=== PATIENT | female | born 1960 | race Caucasian/White ===

== ENCOUNTER 2016-11-26 11:00 | Inpatient (IN) ==
[2016-11-26 12:01] LABS: MANUAL DIFF NEEDED? NO
[2016-11-26 12:18] LABS: BASO% 0.3 % (0.0-0.8); EOS# 0.18 X1000 (0.0-0.7); EOS% 2.9 % (0.0-10.0); HEMATOCRIT 32.3 % (37.0-47.0); HEMOGLOBIN 10.4 g/dL (12.0-16.0); IMM GRAN# 0.05 X1000 (0.0-0.04); IMM GRAN% 0.8 % (0.0-0.5); LYMPH# 1.53 X1000 (1.2-3.4); MCH 26.3 PG (27-31); MCHC 32.2 g/dL (33-37); MCV 81.8 FL (81-99); MONO# 0.45 X1000 (0.11-0.59); MONO% 7.3 % (1.7-9.3); MPV 10.3 FL (7.4-10.4); NEUT% 63.7 % (42.2-75.2); PLT 299 X1000 (130-400); RBC 3.95 XMIL (4.2-5.4)
--- NOTE | 2016-11-26 12:19 | PROVIDER DOCUMENTATION ---
HPI-General Adult - General Chief Complaint: Vomiting Blood Stated Complaint: RECHECK/SENT BY DR NAVARRETE Time Seen by Provider: 11/26/16 12:02 Source: patient, family Allergies/Adverse Reactions: Patient Allergies Allergy/AdvReac Type Severity Reaction Status Date / Time clindamycin Allergy Severe RASH Verified 11/26/16 13:57 meloxicam [From Mobic] Allergy Mild RASH Verified 11/26/16 13:57 vancomycin Allergy RASH Verified 11/26/16 13:57 Home Medications: Home Medication List Medication Instructions Recorded Confirmed Last Taken Type ATORVAstatin [Lipitor] 80 mg PO QHS 09/08/15 11/26/16 11/25/16 21:00 History Apixaban [Eliquis] 2.5 mg PO BID 09/08/15 11/26/16 11/25/16 21:00 History Furosemide 80 mg PO BID 09/08/15 11/26/16 11/26/16 09:00 History Zolpidem [Ambien] 5 mg PO QHS 09/08/15 11/26/16 11/25/16 21:30 History Clonidine [Catapres] 0.1 mg PO TID #90 09/21/15 11/26/16 11/26/16 09:00 Rx Buspirone HCl 5 mg PO BID 10/06/15 11/26/16 11/26/16 09:00 History Hydralazine [Apresoline] 37.5 mg PO TID@0900,1500,2100 #90 11/06/15 11/26/16 09:00 Rx tablet Aspirin 81 mg PO DAILY 11/12/16 11/26/16 11/12/16 History Calcium Acetate 667 mg PO TID 11/12/16 11/26/16 11/26/16 09:00 History Gabapentin [Neurontin] 300 mg PO QHS 11/12/16 11/26/16 11/25/16 21:00 History Hydrocodone/Acetaminophen [[place] 1 each PO Q6H PRN PRN 11/12/16 11/26/16 21:00 History 10-325 Tablet] Lansoprazole [Prevacid] 30 mg PO DAILY 11/12/16 11/26/16 11/26/16 09:00 History Metoprolol [Lopressor] 50 mg PO BID 11/12/16 11/26/16 11/26/16 09:00 History Insulin Detemir [Levemir] 88 unit SUBQ BID@0600,1800 #0 11/24/16 11/26/16 09:00 Rx insuln.pen Insulin Lispro [Humalog] 40 units SQ TID #0 11/24/16 11/26/16 11/26/16 09:00 Rx Levothyroxine [Synthroid] 88 microgm PO DAILY #60 tablet 11/24/16 11/26/1611/26 07:00 Rx - History of Present Illness -Gen Adult Nature of Presenting Problems: 56 yo WF with ESRD, diabtetes, COPD, IHD was discharged from this facility Tuesday. She had been admitted with hematuria, fluid overload and was dialyzed. Returns today after vomiting blood three times this morning. She says that 'it was a lot.' She is very anxious. Her urine is also bloody again. They called Dr. Navarrete who instructed them to come back to the hospital. Pain Radiation: reports: no radiation Quality of Pain: reports: none Severity: reports: mild Onset/Duration: reports: this morning Timing: reports: improving Context/Activities at Onset: reports: none Modifying Factors: improves with: nothing Associated Symptoms: reports: other (anxiety) Similar Symptoms Previously?: Yes Recently seen or treated by another doctor?: Yes HPI Comments: patient and SO clearly desire re-admission Review of Systems - Adult - REVIEW OF SYSTEMS - ADULT Constitutional: reports: fatique Eyes: reports: no symptoms reported Ears, Nose, Mouth & Throat: reports: no symptoms reported Cardiovascular: reports: no symptoms reported Respiratory: reports: no symptoms reported Gastrointestinal: reports: see HPI, hematemesis, vomiting. denies: nausea Genitourinary: reports: no symptoms reported Musculoskeletal: reports: no symptoms reported Integumentary: reports: no symptoms reported Neurological: reports: no symptoms reported Psychiatric: reports: no symptoms reported Endocrine: reports: no symptoms reported Hematologic/Lymphatic: reports: no symptoms reported Allergic/Immunologic: reports: no symptoms reported All Other Systems: Reviewed and Negative Past History - Adult - PAST MEDICAL HISTORY-ADULT Review of Records: reports: Old Records Reviewed, Nursing Assessment Review, Medications Reviewed, Social history reviewed & non-contributory. Cardiovascular: reports: cardiac disease, A-Fib, CHF (last echo 04/12/15 showed EF of 55% but difficult due to patient size), HTN, hyperlipidemia, [place] Respiratory: reports: COPD Genitourinary: reports: kidney disease (stage 4) Neurological: reports: CVA Psychiatric: reports: anxiety Endocrine/Immune: reports: Diabetes, thyroid disorder - PRIOR SURGERIES/PROCEDURES Surgical/Procedure History: reports: appendectomy, CABG, cholecystectomy, cardiac stent, hysterectomy, - IMMUNIZATION STATUS Childhood Immunizations: See Nurse Assessment Flu Vaccine: See Nurse Assessment - FAMILY HISTORY Family History: reviewed, not pertinent - SOCIAL HISTORY Smoking: denies Alcohol Use Frequency: never Living Situation: family Physical Exam-General - PHYSICAL EXAM-ADULT Initial Vital Signs Reviewed: Yes - CONSTITUTIONAL General Appearance: obese (morbid), anxious - EYES Eyes: pink conjunctivae - HEAD, EARS, NOSE, MOUTH & THROAT HENMT: normocephalic/atraumatic, moist mucous membranes - NECK Neck: non-tender, full range of motion - RESPIRATORY Respiratory: chest non-tender, lungs clear, normal breath sounds, no pleuratic chest pain, no respiratory distress, no accessory muscle use - CARDIOVASCULAR Cardiovascular: regular rate, rhythm - GASTROINTESTINAL (ABDOMEN) Abdominal Exam: normal bowel sounds, other (morbid obesity) - MUSCULOSKELETAL Back Exam: no CVA tenderness Extremity: pedal edema (right greater than left) - SKIN Integumentary: pallor - NEUROLOGIC Neurologic: grossly normal - PSYCHIATRIC Psych/Mental Status: oriented x 3, anxious, disheveled, tearful Progress - PLAN OF CARE/RESULTS Progress/Plan/Lab Results: Vital Signs Temp Pulse Resp BP Pulse Ox 11/26/16 11:08 97.9 F 94 H 20 135/71 97 clindamycin Allergy (Severe, Verified 11/26/16 13:57) RASH meloxicam [From Mobic] Allergy (Mild, Verified 11/26/16 13:57) RASH vancomycin Allergy (Verified 11/26/16 13:57) RASH ATORVAstatin [Lipitor] 80 mg PO QHS 09/08/15 Apixaban [Eliquis] 2.5 mg PO BID 09/08/15 Furosemide 80 mg PO BID 09/08/15 Zolpidem [Ambien] 5 mg PO QHS 09/08/15 Clonidine [Catapres] 0.1 mg PO TID #90 09/21/15 Buspirone HCl 5 mg PO BID 10/06/15 Hydralazine [Apresoline] 37.5 mg PO TID@0900,1500,2100 #90 tablet 11/06/15 Aspirin 81 mg PO DAILY 11/12/16 Calcium Acetate 667 mg PO TID 11/12/16 Gabapentin [Neurontin] 300 mg PO QHS 11/12/16 Hydrocodone/Acetaminophen [[place] 10-325 Tablet] 1 each PO Q6H PRN PRN 11/12/16 Lansoprazole [Prevacid] 30 mg PO DAILY 11/12/16 Metoprolol [Lopressor] 50 mg PO BID 11/12/16 Insulin Detemir [Levemir] 88 unit SUBQ BID@0600,1800 #0 insuln.pen 11/24/16 Insulin Lispro [Humalog] 40 units SQ TID #0 11/24/16 Levothyroxine [Synthroid] 88 microgm PO DAILY #60 tablet 11/24/16 Laboratory 11/26/16 11/26/16 11/26/16 11:49 11:49 11:49 WBC RBC Hgb Hct MCV MCH MCHC RDW Std Deviation Plt Count MPV Immature Gran % (Auto) Neut % (Auto) Lymph % (Auto) Rankin % (Auto) Eos % (Auto) Baso % (Auto) Immature Gran # (Auto) Neut # (Auto) Lymph # (Auto) Rankin # (Auto) Eos # (Auto) Baso # (Auto) PT 10.4 INR 0.98 PTT (Actin FS) 26.8 Sodium 133 L Potassium 4.5 Chloride 95 L Carbon Dioxide 22 L Anion Gap 16 BUN 71 H Creatinine 5.4 H Estimated GFR/1.73 m2 8 BUN/Creatinine Ratio 13 Glucose 305 H Calculated Osmolality 299 Calcium 8.7 L Total Bilirubin 0.19 L AST 12 ALT 10 Alkaline Phosphatase 91 Total Protein 6.3 Albumin 3.1 L Globulin 3.2 Albumin/Globulin Ratio 1.0 Blood Type O POSITIVE Antibody Screen NEGATIVE 11/26/16 11:49 WBC 6.13 RBC 3.95 L Hgb 10.4 L Hct 32.3 L MCV 81.8 MCH 26.3 L MCHC 32.2 L RDW Std Deviation 15.7 H Plt Count 299 MPV 10.3 Immature Gran % (Auto) 0.8 H Neut % (Auto) 63.7 Lymph % (Auto) 25.0 Rankin % (Auto) 7.3 Eos % (Auto) 2.9 Baso % (Auto) 0.3 Immature Gran # (Auto) 0.05 H Neut # (Auto) 3.90 Lymph # (Auto) 1.53 Rankin # (Auto) 0.45 Eos # (Auto) 0.18 Baso # (Auto) 0.02 PT INR PTT (Actin FS) Sodium Potassium Chloride Carbon Dioxide Anion Gap BUN Creatinine Estimated GFR/1.73 m2 BUN/Creatinine Ratio Glucose Calculated Osmolality Calcium Total Bilirubin AST ALT Alkaline Phosphatase Total Protein Albumin Globulin Albumin/Globulin Ratio Blood Type Antibody Screen - CONSULTS/PCP/HOSPITALIST Notification #1 *Consult/PCP/Hospitalist*: Leone Time Discussed: 14:05 Consult Disposition: Will see in ED Departure - Departure Time of Disposition Order: 14:14 DIAGNOSIS: ESRD (end stage renal disease) Hematemesis/vomiting blood Qualifiers: Nausea presence: without nausea Qualified Code(s): K92.0 - Hematemesis Disposition: ADMITTED INPATIENT 09 Certified Medical Emergency: Emergent Condition: Stable
[2016-11-26 12:32] LABS: INR 0.98; PROTIME 10.4 Seconds (9.2-11.7); PTT 26.8 Seconds (22.0-36.0)
[2016-11-26 12:33] LABS: ALBUMIN 3.1 g/dL (3.5-5.0); CALCIUM 8.7 mg/dL (8.8-10.2); POTASSIUM 4.5 mmol/L (3.5-5.1); TOTAL BILIRUBIN 0.19 mg/dL (0.20-1.00); TOTAL PROTEIN 6.3 g/dL (6.3-8.3)
[2016-11-26] MEDS ORDERED: NS 2,000 ML ONE (14:24)
[2016-11-26] MEDS ORDERED: HEPARIN ONE (14:24)
[2016-11-26] MEDS ORDERED: NS 2,000 ML MISC PRN (14:31)
[2016-11-26] MEDS ORDERED: TIGHT: 0.2 ML/HR MISC PRN (14:31)
[2016-11-26] MEDS ORDERED: HEPARIN IV PRN (14:31)
[2016-11-26] MEDS: HUMALOG SUBQ SCH ×3 (17:00→23:59)
--- NOTE | 2016-11-26 17:24 | HISTORY AND PHYSICAL ---
DIRECTIONAL SURVEY DRAFTER: Nba Navarrete MD PRIMARY CARE PHYSICIAN: Kristy Huynh MD CHIEF COMPLAINT: Hematuria and hematemesis. HISTORY OF PRESENT ILLNESS: Mrs. Sheridan is a 56-year-old, female. She is well known to our service. She was discharged 2 days ago after a lengthy stay for volume overload, E. coli UTI, gross hematuria, uncontrolled diabetes. She went home and yesterday started having hematemesis and hematuria as well as generalized abdominal pain. She reports subjective fever and chills, but has not taken her temperature. She describes the blood as both mixed dark and bright, but denies any melena. She called Dr. Navarrete's office today who directed her to the ER. She denies any chest pain or shortness of breath. She has chronic right lower extremity edema, but no new symptoms since she left with the exception of the hematemesis, hematuria and abdominal pain. When she got to the ER, she had labs and diagnostics done. She is mildly anemic, but compared to her last visit this is roughly the same. Dr. Navarrete has already seen the patient and she is in dialysis now. We are going to admit her for further treatment and evaluation. PAST MEDICAL HISTORY: 1. CHF. 2. CAD. 3. Diabetes mellitus. 4. ESRD on hemodialysis. 5. LSA. 6. Hypertension. 7. Hypothyroidism. 8. Anemia of chronic disease. 9. Chronic hematuria. 10. Recent diagnosis of E. coli UTI. SURGICAL HISTORY: CABG and coronary stents, appendectomy, cholecystectomy, , hysterectomy. SOCIAL HISTORY: Patient is . She lives with her . She quit smoking in 2003. Denies alcohol or drug use. REVIEW OF SYSTEMS: Fourteen-point review of systems was obtained and found to be negative with the exception of the HPI. HOME MEDICATIONS: Lipitor 80 mg HS, Eliquis 2.5 mg b.i.d., aspirin 81 mg daily, buspirone 5 mg b.i.d., calcium acetate 667 mg p.o. t.i.d., Lasix 80 mg b.i.d., Neurontin 300 mg p.o. HS, [place] 1 every 6 hours as needed, Prevacid 30 mg daily, Lopressor 50 mg b.i.d., Ambien 5 mg p.o. HS, Catapres 0.1 mg p.o. t.i.d., Apresoline 37.5 mg p.o. t.i.d., Levemir 88 units subcutaneous b.i.d., Humalog 40 units subcutaneous t.i.d., Synthroid 88 mcg p.o. daily. ALLERGIES: To clindamycin, meloxicam and vancomycin. PHYSICAL EXAMINATION: VITAL SIGNS: Blood pressure is 135/71, heart rate 94, respiratory rate 20, O2 saturation 97% on room air. Temperature is 97.9 degrees. GENERAL: This is a morbidly obese, female, lying in hospital bed in no acute distress. NEUROLOGIC: Awake, alert, and oriented. She follows commands without focal deficits. HEENT: Head is atraumatic and normocephalic. Her pupils are equal, round, and reactive to light. Oral mucosa is moist. Trachea is midline. NECK: No JVD or carotid bruits. CHEST: Clear to auscultation bilaterally. CV: Regular rate and rhythm. S1-S2 is noted. No murmurs, gallops, clicks, rubs. GI: Soft, nondistended. Bowel sounds are positive. She does have tenderness to palpation diffusely. EXTREMITIES: Right lower extremity with 2+ edema. Left lower extremity 1+ edema. Pulses are diminished but palpable bilaterally. DIAGNOSTIC DATA: WBC 6.13, hemoglobin 10.4, hematocrit 32.3, platelet count 299,000. INR 0.98. Sodium 133, potassium 4.5, chloride 95, CO2 22, anion gap 16, BUN 71, creatinine 5.4, glucose 305, calcium 8.7, albumin 3.1. ASSESSMENT AND PLAN: 1. Hematemesis and abdominal pain: We are going to keep her NPO and consult with GI for possible upper endoscopy. We will hold any antiplatelets or anticoagulants and add Protonix b.i.d. 2. Hematuria: A renal CT done last admission did not show anything acute. Dr. Navarrete has been consulted and we will confer with him. 3. End-stage renal disease on hemodialysis: Orders per Dr. Navarrete for dialysis. Currently she is mildly anemic. Her acid base balance and volume status is acceptable. We will continue to monitor. 4. Hypertension: Chronic and stable, continue her home medication. 5. Diabetes mellitus: We will continue her home medication regimen, and follow pattern blood sugar and sliding scale insulin. 6. Hyperlipidemia: Chronic and stable, continue home medications. 7. Hypothyroidism: Chronic and stable, continue home medications. 8. GI prophylaxis is going to be provided with Protonix, deep vein thrombosis prophylaxis with SCD and TEDs given GI bleeding. 9. Further recommendations to follow. Dictated by ALICE Liang for Darrell Salazar MD
[2016-11-26] MEDS: NORCO-10 PO PRN (18:04)
[2016-11-26] MEDS: PHOSLO PO SCH (18:39)
[2016-11-26] MEDS: SODIUM CHLORIDE 0.9% INJ SCH (18:39)
[2016-11-26] MEDS: PROTONIX IV SCH (18:39)
[2016-11-26] MEDS: APRESOLINE PO SCH ×3 (18:40→21:32)
[2016-11-26] MEDS ORDERED: MORPHINE IV ONE (19:39)
[2016-11-26] MEDS: LASIX PO SCH (21:28)
[2016-11-26] MEDS: LIPITOR PO SCH (21:30)
[2016-11-26] MEDS: NEURONTIN PO SCH (21:30)
[2016-11-26] MEDS: BUSPAR PO SCH (21:30)
[2016-11-26] MEDS: CATAPRES PO SCH (21:30)
[2016-11-26] MEDS: AMBIEN PO SCH (21:30)
[2016-11-26] MEDS: LOPRESSOR PO SCH (21:30)
[2016-11-27] MEDS: NORCO-10 PO PRN ×2 (00:07→05:59)
[2016-11-27] MEDS: LEVEMIR SUBQ SCH ×2 (02:35→18:04)
[2016-11-27] MEDS: SODIUM CHLORIDE 0.9% INJ SCH ×2 (04:54→18:01)
[2016-11-27] MEDS: PROTONIX IV SCH ×2 (04:54→18:01)
[2016-11-27] MEDS: SYNTHROID PO SCH (05:59)
[2016-11-27] MEDS: HUMALOG SUBQ SCH ×8 (06:00→22:27)
[2016-11-27 06:19] LABS: MANUAL DIFF NEEDED? NO
[2016-11-27 06:23] LABS: BASO% 0.6 % (0.0-0.8); EOS# 0.18 X1000 (0.0-0.7); EOS% 3.5 % (0.0-10.0); HEMATOCRIT 33.4 % (37.0-47.0); HEMOGLOBIN 10.6 g/dL (12.0-16.0); IMM GRAN# 0.04 X1000 (0.0-0.04); IMM GRAN% 0.8 % (0.0-0.5); LYMPH# 1.26 X1000 (1.2-3.4); LYMPH% 24.2 % (20.5-51.1); MCH 26.1 PG (27-31); MCHC 31.7 g/dL (33-37); MCV 82.3 FL (81-99); MONO# 0.45 X1000 (0.11-0.59); MONO% 8.6 % (1.7-9.3); MPV 10.2 FL (7.4-10.4); NEUT% 62.3 % (42.2-75.2); PLT 293 X1000 (130-400); RBC 4.06 XMIL (4.2-5.4)
[2016-11-27 06:49] LABS: CALCIUM 8.7 mg/dL (8.8-10.2); POTASSIUM 4.6 mmol/L (3.5-5.1)
[2016-11-27] MEDS ORDERED: NON-FORMULARY MED (Lansoprazole [Prevacid] 30 MG) PO SCH (09:00)
[2016-11-27] MEDS: BUSPAR PO SCH ×2 (09:33→21:05)
[2016-11-27] MEDS: PHOSLO PO SCH ×3 (09:33→18:01)
[2016-11-27] MEDS: CATAPRES PO SCH ×3 (09:34→21:05)
[2016-11-27] MEDS: LASIX PO SCH ×2 (09:34→21:06)
[2016-11-27] MEDS: LOPRESSOR PO SCH ×2 (09:34→21:06)
[2016-11-27] MEDS: APRESOLINE PO SCH ×3 (09:34→21:04)
[2016-11-27] MEDS: MORPHINE IV PRN ×3 (10:29→21:07)
--- NOTE | 2016-11-27 12:00 | PROGRESS NOTE ---
DATE: 11/27/2016 SUBJECTIVE: This patient is complaining of abdominal pain. She denies and nausea or vomiting today, but she was admitted because of hematemesis. She states that the urine now is not presenting with blood. Pending gastroenterology department evaluation. OBJECTIVE: Vital signs: Temperature 97.8, pulse 102, respiratory rate 16, blood pressure 114/57, oxygen saturation 97 on room air. HEENT: Head normocephalic, no trauma, [place]. Neck: No JVD, no masses. Central trachea. Chest: Clear to auscultation bilaterally. Cardiovascular: RRR, no murmurs. Abdomen: Soft, is mildly distended. Bowel sounds present. Generalized tenderness to palpation but mostly at the level of the upper abdomen. Extremities: 1+ lower extremity edema . Pulses are diminished but palpable bilaterally. Neurological: The patient is alert and oriented x3. No focal neurological deficits. LABORATORY: WBC 5.2, hemoglobin 10.6, hematocrit 33.4, platelets 293. Sodium 138, potassium 4.6, chloride 98, bicarbonate 23, BUN 51, creatinine 4.3, glucose 234, calcium 8.7. ASSESSMENT AND PLAN: 1. Hematemesis and abdominal pain, pending Gastroenterology evaluation. For now, I will put this patient on a liquid diet. I will continue with Protonix b.i.d. She is not having any nausea or vomiting at this moment. 2. End-stage renal disease on hemodialysis. Will continue with the same protocol. Nephrology department is following this patient. 3. Anemia, likely related to chronic disease, kidney dysfunction. 4. Hypertension, chronic and stable. Continue with home medication. 5. Uncontrolled type 2 diabetes mellitus. I will increase the dose of lispro from 40 to 45 t.i.d. We will continue with sliding scale and pattern her blood sugars. 6. Hyperlipidemia. This is chronic and stable. Continue home medications. 7. Hypothyroidism. Continue home medications. 8. GI prophylaxis is going to be provided by Protonix. 9. DVT prophylaxis. I will keep this patient on SCDs and CHAR chung given her GI bleed.
[2016-11-27] MEDS ORDERED: CENTRUM SILVER PO SCH (21:00)
[2016-11-27] MEDS: ICAR-C PO SCH (21:05)
[2016-11-27] MEDS: AMBIEN PO SCH (21:05)
[2016-11-27] MEDS: LIPITOR PO SCH (21:06)
[2016-11-27] MEDS: NEURONTIN PO SCH (21:06)
--- NOTE | 2016-11-27 22:04 | CONSULTATION ---
DATE OF CONSULTATION: 11/27/2016 REASON FOR CONSULTATION: Hematemesis, abdominal pain. HISTORY PRESENT ILLNESS: Ms. Sheridan is 56-year-old female who was admitted on 11/26/2016 with symptoms of epigastric pain, nausea, vomiting and vomiting blood at home. Her last episode of vomiting over 2 days ago. Since in the hospital she has no vomiting. Her hematocrit was noted to be stable for the last 48 hours. She has also noted some dark stools. So far since this admission she had 1 stool which was dark in color. PAST MEDICAL HISTORY: Of congestive heart failure, coronary disease, diabetes mellitus, end- stage renal disease on hemodialysis per Dr. Navarrete, hypertension, hypothyroidism, anemia of chronic disease chronic hematuria, UTI with E coli, morbid obesity, chronic lower extremity edema. PAST SURGICAL HISTORY: CABG, coronary stents, appendectomy, cholecystectomy, C- section, hysterectomy, EGD and colonoscopy. SOCIAL HISTORY: She is . She lives with her . She quit smoking 2003. Denies history alcohol, illicit drugs. REVIEW OF SYSTEMS: Denies any fevers, rigors, chills, chest pain, shortness of breath, dyspnea at rest. Denies any genitourinary complaints, she has end-stage renal disease on hemodialysis, she has been a diabetic since 2000, she has been on dialysis more than a year. She denies any nausea complaints. Denies any bright red blood in the stools. MEDICATIONS AT HOME: Is Lipitor, Eliquis 2.5 mg b.i.d., aspirin 81 mg every day, buspirone, calcium acetate, Lasix, Neurontin, [place], Prevacid, Lopressor, Ambien, Catapres , Apresoline, Levemir, Humalog, Synthroid. ALLERGIES: To clindamycin, meloxicam and vancomycin. HER MEDICATIONS IN THE HOSPITAL: Include hydrocodone/acetaminophen, morphine, zolpidem, Apresoline, buspirone, clonidine, Lasix, Levemir, Lipitor, metoprolol, gabapentin, calcium acetate, levothyroxine, Protonix IV b.i.d., Humalog sliding scale and Humalog lispro 45 units subcu t.i.d. She is currently on clear liquid diet. PHYSICAL EXAMINATION: Vital signs: Temperature 98.1 degrees, pulse of 69, respiratory 18, blood pressure 102/73, saturating 96 on room air, body weight of 386 pounds 11.05 ounces, BMI of 50 kg meter squared. General: Patient obese sitting in bed in no acute distress. HEENT: Mild pallor. No icterus. Pupils equal, react to light. Neck: Supple. Chest: Decreased Breath sounds at the bases. Cardiovascular: Regular rhythm. Abdomen: Morbidly obese, soft, nontender, nondistended. Bowel sounds. Extremities: No cyanosis, clubbing. Mild lower extremity noted. Neuro: Alert, awake, oriented. LABS: Hemoglobin and hematocrit is 10.6, 33.4, white count 5.2, platelet count of 293,000, MCV of 82.3. PT of 10.4, INR 0.98, PTT of 26.8. Sodium 130, potassium 4.6, chloride 98, bicarb 23, anion gap 17, BUN of 51, creatinine 4.3, glucose of 234, calcium is 8.7, AST 12, ALT 10, alkaline phosphatase 91, total protein 6.3, albumin 3.1, total bilirubin is 0.19. Last CT of the abdomen and pelvis was done as a renal CT done 11/22/2016 which showed a small nonobstructing stone on the right kidney, no bowel obstruction, apparent constipation, chronic bilateral L5 pars interarticularis defects. She had a EGD and colonoscopy on 09/16/[address] Barnett which showed normal colonoscopy and antral gastritis-erosions, no evidence any active bleeding noted. IMPRESSION AND PLAN: 1. Recent hematemesis in the setting of use of aspirin and Eliquis. 2. History of previous antral gastritis with EGD in September 2015. 3. Reflux disease. 4. Morbid obesity. 5. End-stage renal disease on hemodialysis. 6. Chronic constipation. RECOMMENDATIONS: 1. Will continue Protonix IV b.i.d. Will continue monitor blood counts. 2. Will start on bowel regimen. Will avoid any NSAIDs and will hold the blood thinners as per the primary team. We will schedule for EGD on Tuesday if her hematocrit drops. Will also start on Iron-C as well as multivitamin once daily. Further recommendation pending hospital course. 3. Obesity counseling 4. Continue Bowel regimen. Discussed with the patient and family and all questions were answered. [facility]
[2016-11-28] MEDS: MORPHINE IV PRN ×3 (02:07→10:52)
[2016-11-28 06:03] LABS: MANUAL DIFF NEEDED? NO
[2016-11-28 06:08] LABS: BASO% 0.7 % (0.0-0.8); EOS% 3.3 % (0.0-10.0); HEMATOCRIT 34.2 % (37.0-47.0); HEMOGLOBIN 10.8 g/dL (12.0-16.0); IMM GRAN# 0.04 X1000 (0.0-0.04); IMM GRAN% 0.7 % (0.0-0.5); LYMPH# 1.55 X1000 (1.2-3.4); LYMPH% 25.4 % (20.5-51.1); MCH 26.3 PG (27-31); MCHC 31.6 g/dL (33-37); MCV 83.4 FL (81-99); MONO# 0.53 X1000 (0.11-0.59); MONO% 8.7 % (1.7-9.3); MPV 9.8 FL (7.4-10.4); NEUT% 61.2 % (42.2-75.2); PLT 277 X1000 (130-400)
[2016-11-28] MEDS: SODIUM CHLORIDE 0.9% INJ SCH (06:15)
[2016-11-28] MEDS: PROTONIX IV SCH (06:15)
[2016-11-28] MEDS: HUMALOG SUBQ SCH ×2 (06:15→11:32)
[2016-11-28] MEDS: SYNTHROID PO SCH (06:15)
[2016-11-28] MEDS: LEVEMIR SUBQ SCH (06:19)
[2016-11-28 06:52] LABS: CALCIUM 8.6 mg/dL (8.8-10.2); POTASSIUM 4.7 mmol/L (3.5-5.1)
[2016-11-28] MEDS: APRESOLINE PO SCH ×3 (07:51→13:55)
[2016-11-28] MEDS: LOPRESSOR PO SCH (07:51)
[2016-11-28] MEDS: BUSPAR PO SCH (07:53)
[2016-11-28] MEDS: LASIX PO SCH (07:54)
[2016-11-28] MEDS: PHOSLO PO SCH ×2 (07:54→13:55)
[2016-11-28] MEDS: ICAR-C PO SCH (07:54)
[2016-11-28] MEDS: CATAPRES PO SCH (07:55)
[2016-11-28] MEDS ORDERED: CENTRUM SILVER PO SCH (09:00)
[2016-11-28 11:19] VITALS: BP 96/46
[2016-11-28] MEDS ORDERED: PROTONIX PO SCH (21:00)
--- NOTE | 2016-11-29 18:08 | DISCHARGE SUMMARY ---
ADMISSION DATE: 11/26/2016 DISCHARGE DATE: 11/28/2016 DISCHARGE DIAGNOSES: 1. Recent hematemesis in the setting of aspirin and Eliquis. 2. History of previous enterogastritises with EGD in September 2015. 3. End-stage renal disease, on hemodialysis. 4. Gastroesophageal reflux disease. 5. Morbid obesity. 6. Chronic constipation. 7. Hypertension. 8. Hypothyroidism. 9. Anemia of chronic disease. 10. History of congestive heart failure and coronary artery disease. CONSULTATIONS: Gastroenterology Department, Dr. Wallace. HOSPITAL COURSE: This is a 56-year-old female with multiple comorbidities including end- stage renal disease, diabetes, CHF, coronary artery disease, hypertension, hypothyroidism, UTI, came to the emergency department on 11/26/2016 with a chief complaint of hematemesis and hematuria, as well as generalized abdominal pain two days before she was discharged from [facility] secondary to fluid overload, Escherichia coli UTI, gross hematuria, and uncontrolled diabetes. Apparently she called Dr. Navarrete, from the Nephrology Department, and he recommended to come back to the emergency department for further evaluation. She was admitted and she was also dialyzed during the course of her hospitalization. Gastroenterology Department was consulted and also the aspirin and anticoagulation was stopped. The nausea and vomiting stopped and the hemoglobin and hematocrit were stable during the course of her hospitalization. The patient was not complaining of any specific symptoms today. This is why we decided to discharge this patient with strict follow up by her primary care physician. Continue with her scheduled dialysis and follow up by Dr. Wallace in 1 week for possible EGD. At the moment of discharge, this patient was tolerating p.o. and she was in stable medical condition. PHYSICAL EXAMINATION: Vital signs: Temperature 98 degrees, pulse 88, respiratory rate 18, blood pressure 100/46, oxygen saturation 93 on room air. HEENT: Head normocephalic. No trauma. PERRLA. Neck: Supple. No JVD. No masses. Central trachea. Chest: Clear to auscultation. No wheezing. No rales. Abdomen: Obese, protuberant, nontender, and nondistended. No hepatosplenomegaly. Extremities: There is 1+ lower extremity edema. Neurological: The patient was alert and oriented x3. No focal neurological deficits. LABORATORY: WBC 6.1, hemoglobin 10.8, hematocrit 34.2, platelets 277,000. Sodium 133, potassium 4.7, chloride 95, bicarbonate 19, BUN 55, creatinine 4.9, glucose 206, calcium 8.6. DISCHARGE MEDICATIONS: This patient will continue with the same home medications except Eliquis and aspirin. She will resume these medications in 1 week, as per Gastroenterology Department. She will continue with Zolpidem 5 mg p.o. at bedtime, metoprolol 50 mg p.o. b.i.d., levothyroxine 88 mcg p.o. daily, insulin lispro 40 units subcutaneously t.i.d., insulin detemir 88 units subcutaneously b.i.d., [place] 10 one tablet p.o. q.6 hours p.r.n., hydralazine 37.5 mg p.o. t.i.d., gabapentin 300 mg p.o. at bedtime, furosemide 80 mg p.o. b.i.d., clonidine 0.1 mg p.o. t.i.d., calcium acetate 667 mg p.o. t.i.d., buspirone 5 mg p.o. b.i.d., atorvastatin 80 mg p.o. at bedtime, Centrum Silver 1 tablet p.o. daily, lansoprazole 30 mg p.o. b.i.d., Icar C 1 tablet p.o. b.i.d. FOLLOWUP: Follow up with her primary care physician in 1 week. Continue hemodialysis as scheduled. Follow up with Dr. Wallace in 1 week. [facility]
== END 2016-11-28 14:09 | disposition home or self-care (01) | DRG 377 ==
LOC: ED 11:00 → 4N 16:53
PROVIDERS: ATTEND Internal Medicine
PROC: 5A1D00Z (ICD-10-PCS; principal; 2016-11-26)
DX: K92.0 Hematemesis (principal); N18.6 End stage renal disease; I13.2 Hypertensive heart and chronic kidney disease with heart failure and with stage 5 chronic kidney disease, or end stage renal disease; E11.22 Type 2 diabetes mellitus with diabetic chronic kidney disease; I12.0 Hypertensive chronic kidney disease with stage 5 chronic kidney disease or end stage renal disease; I48.91 Unspecified atrial fibrillation; Z68.43 Body mass index [BMI] 50.0-59.9, adult; I25.10 Atherosclerotic heart disease of native coronary artery without angina pectoris; I50.9 Heart failure, unspecified; E78.5 Hyperlipidemia, unspecified; E66.01 Morbid (severe) obesity due to excess calories; E11.65 Type 2 diabetes mellitus with hyperglycemia; E03.9 Hypothyroidism, unspecified; D63.1 Anemia in chronic kidney disease; K59.09 Other constipation; K21.9 Gastro-esophageal reflux disease without esophagitis; Z99.2 Dependence on renal dialysis; Z95.1 Presence of aortocoronary bypass graft; Z95.5 Presence of coronary angioplasty implant and graft; Z86.73 Personal history of transient ischemic attack (TIA), and cerebral infarction without residual deficits; Z79.899 Other long term (current) drug therapy; I25.2 Old myocardial infarction; Z79.02 Long term (current) use of antithrombotics/antiplatelets; Z79.82 Long term (current) use of aspirin; Z79.4 Long term (current) use of insulin; Z87.891 Personal history of nicotine dependence
CPT/HCPCS: 36415; 80048; 80053; 82948; 85025; 85610; 85730; 86850; 86900; 86901; 99285; C9113; J1644; J1815; J2270; J7030; S0164

== ENCOUNTER 2017-04-23 22:41 | Inpatient (IN) ==
[2017-04-23 23:35] LABS: MANUAL DIFF NEEDED? NO
[2017-04-23 23:41] LABS: BASO% 0.6 % (0.0-0.8); EOS# 0.25 X1000 (0.0-0.7); EOS% 2.8 % (0.0-10.0); HEMATOCRIT 35.2 % (37.0-47.0); HEMOGLOBIN 11.2 g/dL (12.0-16.0); IMM GRAN# 0.07 X1000 (0.0-0.04); IMM GRAN% 0.8 % (0.0-0.5); LYMPH# 1.32 X1000 (1.2-3.4); LYMPH% 14.9 % (20.5-51.1); MCH 27.2 PG (27-31); MCHC 31.8 g/dL (33-37); MCV 85.4 FL (81-99); MONO% 6.8 % (1.7-9.3); MPV 10.6 FL (7.4-10.4); NEUT% 74.1 % (42.2-75.2); PLT 302 X1000 (130-400); RBC 4.12 XMIL (4.2-5.4)
[2017-04-23 23:53] LABS: URINE CULTURE NEEDED? NO; URINE SOURCE CLEAN CATCH
[2017-04-24 00:05] LABS: INR 0.96; PTT 29.1 Seconds (22.0-36.0)
[2017-04-24 00:25] LABS: ALBUMIN 3.3 g/dL (3.5-5.0); CALCIUM 8.4 mg/dL (8.8-10.2); POTASSIUM 5.8 mmol/L (3.5-5.1); TOTAL BILIRUBIN 0.13 mg/dL (0.20-1.00); TOTAL PROTEIN 5.6 g/dL (6.3-8.3)
[2017-04-24 00:38] LABS: UR AMPHETAMINES QUAL NONE DETECTED (NONE DETECT); UR BARBITUATES QUAL NONE DETECTED (NONE DETECT); UR BENZODIAZEPIN QUAL NONE DETECTED (NONE DETECT); UR CANNABINOIDS QUAL NONE DETECTED (NONE DETECT); UR COCAINE QUAL NONE DETECTED (NONE DETECT); UR METHADONE QUAL NONE DETECTED (NONE DETECT); UR OPIATES QUAL NONE DETECTED (NONE DETECT); UR OXYCODONE QUAL NONE DETECTED (NONE DETECT); UR PCP QUAL NONE DETECTED (NONE DETECT)
[2017-04-24] MEDS ORDERED: NORCO-10 PO ONE (00:45)
[2017-04-24 00:51] LABS: BILIRUBIN URINE NEGATIVE (NEGATIVE); BLOOD URINE TRACE (NEGATIVE); COLOR YELLOW; GLUCOSE URINE 500 mg/dL (NEGATIVE); LEUKOCYTES URINE NEGATIVE (NEGATIVE); NITRITE URINE NEGATIVE (NEGATIVE); PH URINE 6.5; PROTEIN URINE >600 mg/dL (NEGATIVE); SP GRAVITY URINE 1.014; TURBIDITY URINE CLEAR (CLEAR); UROBILINOGEN URINE NORMAL (NORMAL)
[2017-04-24 00:52] LABS: URINE MICRO REVIEW NEEDED? YES
[2017-04-24 00:59] LABS: UR EPITHELIAL CELLS <10 /HPF (<10); URINE BACTERIA 1+ /HPF; URINE RBC <10 /HPF (<10); URINE WBC <10 /HPF (<10)
[2017-04-24 01:14] LABS: URINE CASTS NONE SEEN; URINE CRYSTALS NONE SEEN; URINE SMALL ROUND CELLS NONE SEEN
--- NOTE | 2017-04-24 05:03 | HISTORY AND PHYSICAL ---
PRIMARY CARE PHYSICIAN: Dr. Huynh. CHIEF COMPLAINT: Slurred speech and left-sided weakness. HISTORY OF PRESENTING ILLNESS: A 56-year-old morbidly obese female, with a history of chronic kidney disease, diabetes mellitus type 2, COPD, and CHF, who apparently had an episode earlier yesterday when she was having some slurred speech and left-sided weakness. Patient states that her symptoms resolved by the time she got to the emergency department. She was evaluated in the ER. She had a CAT scan of the head done, which was unremarkable. However, due to her presenting symptoms, it was thought that she would need hospitalization for stroke workup. At the time of my examination, she had denied any fever, chills, nausea, vomiting, diarrhea, chest pain, shortness of breath, hemoptysis, or any weight changes, but complained of having still some left-sided weakness, not feeling well. PAST MEDICAL HISTORY: Includes chronic kidney disease. Apparently, was on dialysis for a year- and-a-half, then was taken off of it. Diabetes mellitus type 2, COPD, CHF. PAST SURGICAL HISTORY: Hysterectomy, cholecystectomy, appendectomy. ALLERGIES: Mobic, vancomycin, clindamycin. CURRENT MEDICATIONS: As listed in medication reconciliation sheet. SOCIAL HISTORY: She is a former smoker. Denies any history of alcohol or illicit drug use. She uses a wheelchair mostly. FAMILY HISTORY: Positive for coronary artery disease in father. REVIEW OF SYSTEMS: Twelve point review of systems is as in HPI. Other systems negative. PHYSICAL EXAMINATION: GENERAL: Cooperative, friendly, morbidly obese female. She is resting comfortably now. VITAL SIGNS: Temperature 98.3 degrees, pulse 90, respirations 18, blood pressure 166/98. HEENT: Atraumatic, normocephalic. Extraocular movements intact. PERRLA. NECK: No masses. CHEST: Clear to auscultation. CARDIOVASCULAR: Regular rate and rhythm. ABDOMEN: Soft, obese. Positive bowel sounds. EXTREMITIES: +1 edema. NEUROLOGIC: She is awake, alert, oriented x3. GENITOURINARY: No bladder distention. SKIN: Warm. LABORATORIES AND STUDIES: WBCs 8.85, hemoglobin 11.4, hematocrit 35.2, platelets 302,000. Sodium 139, potassium 5.8, chloride 106, CO2 16, BUN 58, creatinine 3.6, glucose is 251. ASSESSMENT: This is a 56-year-old morbidly obese female with a history of chronic kidney disease, diabetes mellitus type 2, chronic obstructive pulmonary disease, and congestive heart failure, who presented to the emergency department with a 1-day history of having slurred speech and left-sided weakness. Apparently, symptoms seemed to have resolved by the time she got to the emergency department. The patient will need hospitalization for further stroke evaluation. 1. Transient ischemic attack. Will need to rule out cerebrovascular accident. 2. Chronic kidney disease. 3. Diabetes mellitus type 2. 4. Chronic obstructive pulmonary disease. 5. Morbid obesity. PLAN: 1. We will admit patient to medical floor with telemetry. 2. We will schedule patient for MRI of the brain. 3. We will consult Neurology. 4. Monitor renal function. 5. Monitor blood glucose and put patient on sliding scale insulin regimen. 6. We will continue with DuoNebs. 7. Encouraged patient for diet and exercise. 8. Put patient on deep venous thrombosis prophylaxis with sequential compression devices. 9. Will continue to follow and reassess. cc: Dwayne Delaney MD
[2017-04-24] MEDS: SYNTHROID PO SCH (06:18)
[2017-04-24] MEDS ORDERED: INSULIN PEN NEEDLES ONE ×2 (06:39→16:43)
[2017-04-24] MEDS ORDERED: HUMULIN R SUBQ SCH (07:00)
--- NOTE | 2017-04-24 08:45 | Diag Imaging Result Doc PS360 ---
CHEST-1 VIEW - 04/23/2017 INDICATION: stroke like symptoms TECHNIQUE: COMPARISON: 12/21/2016 FINDINGS: The catheter has been removed. Stable sternotomy wires. There is perhaps some worsening of the significant cardiomegaly. There is also worsening of the pulmonary vascular congestion. No definite focal infiltrates or edema. No pneumothorax or significant effusion. IMPRESSION: Worsening cardiomegaly and pulmonary vascular congestion. Electronically signed by Jean Sanchez 04/24/2017 8:43 AM
--- NOTE | 2017-04-24 08:51 | Diag Imaging Result Doc PS360 ---
HEAD W/O CONTRAST - 04/23/2017 INDICATION: stroke like symptoms TECHNIQUE: A CT dose reduction protocol was used. COMPARISON: 12/21/2016 FINDINGS: There is a new small, focal hypodensity that is cortically based, at the medial posterior left occipital lobe. No mass effect or hemorrhage. The skull is intact. The sinuses, mastoids, and middle ears are clear. IMPRESSION: New, small stroke in the left occipital lobe. This is at least 1 - 2 days old. A follow-up brain MRI is recommended. Electronically signed by Jean Sacnhez 04/24/2017 8:49 AM
[2017-04-24] MEDS: LEVEMIR SUBQ SCH ×2 (11:33→20:39)
[2017-04-24] MEDS: APRESOLINE PO SCH ×3 (12:01→20:38)
[2017-04-24] MEDS: ZOLOFT PO SCH ×2 (12:02→15:08)
[2017-04-24] MEDS: PROTONIX PO SCH ×3 (12:02→20:38)
[2017-04-24] MEDS: LOPRESSOR PO SCH ×3 (12:03→20:38)
[2017-04-24] MEDS: LASIX PO SCH ×3 (12:04→20:38)
[2017-04-24] MEDS: CATAPRES PO SCH ×3 (12:05→18:39)
[2017-04-24] MEDS: BUSPAR PO SCH ×3 (12:05→20:38)
[2017-04-24] MEDS: ASPIRIN PO SCH ×2 (12:06→15:08)
[2017-04-24] MEDS: KAYEXALATE PO ONE ×2 (15:12→16:08)
--- NOTE | 2017-04-24 15:16 | ECHO REPORT ---
ORDER DATE: 04/24/2017 INDICATION: Possible stroke. Slurred speech. FINDINGS: This is an extremely difficult study. The patient is morbidly obese with a height of 5 feet 9 inches and a weight of 408 pounds. This makes imaging in all planes extremely poor quality. 1. Two-dimensional imaging of all structures is extremely inadequate. Overall the valvular structures were very poorly visualized on 2-dimensional images. There does appear to be some evidence of moderate biatrial enlargement with the left atrial dimension of 5.7 and right atrial dimension of 4.7 but the right heart structures generally speaking were very poorly visualized. 2. LV systolic function was visualized with Definity echo contrast. The estimated ejection fraction is greater than 55 with no evidence of wall motion abnormalities. 3. Doppler evaluations were very poor quality. Did not see any significant valvular abnormalities on the study. 4. No pericardial effusion seen. cc: MD Dwayne Irene MD
[2017-04-24 18:27] LABS: URINE CULTURE NEEDED? NO; URINE MICRO REVIEW NEEDED? NO; URINE SOURCE CATH
[2017-04-24 18:35] LABS: BILIRUBIN URINE NEGATIVE (NEGATIVE); BLOOD URINE TRACE (NEGATIVE); COLOR YELLOW; GLUCOSE URINE 1000 mg/dL (NEGATIVE); LEUKOCYTES URINE NEGATIVE (NEGATIVE); NITRITE URINE NEGATIVE (NEGATIVE); PROTEIN URINE 600 mg/dL (NEGATIVE); TURBIDITY URINE CLEAR (CLEAR); UR EPITHELIAL CELLS <10 /HPF (<10); URINE BACTERIA NEGATIVE /HPF; URINE RBC <10 /HPF (<10); URINE WBC <10 /HPF (<10); UROBILINOGEN URINE NORMAL (NORMAL)
[2017-04-24] MEDS: LIPITOR PO SCH (20:38)
[2017-04-24] MEDS: NORCO-10 PO PRN (21:03)
[2017-04-25] MEDS: SYNTHROID PO SCH (06:15)
[2017-04-25 06:50] LABS: MANUAL DIFF NEEDED? NO
[2017-04-25 06:54] LABS: BASO% 0.3 % (0.0-0.8); EOS# 0.27 X1000 (0.0-0.7); EOS% 3.8 % (0.0-10.0); HEMATOCRIT 35.3 % (37.0-47.0); IMM GRAN# 0.04 X1000 (0.0-0.04); IMM GRAN% 0.6 % (0.0-0.5); LYMPH% 16.8 % (20.5-51.1); MCH 26.9 PG (27-31); MCHC 31.2 g/dL (33-37); MCV 86.3 FL (81-99); MONO# 0.44 X1000 (0.11-0.59); MONO% 6.2 % (1.7-9.3); MPV 10.3 FL (7.4-10.4); NEUT% 72.3 % (42.2-75.2); PLT 274 X1000 (130-400); RBC 4.09 XMIL (4.2-5.4)
[2017-04-25 07:26] LABS: CALCIUM 8.3 mg/dL (8.8-10.2); POTASSIUM 4.8 mmol/L (3.5-5.1)
--- NOTE | 2017-04-25 09:57 | EKG Report ---
Test Performed on : 04/23/2017 11:05:07 PM Test Reason : Stroke like symptoms Blood Pressure : / mmHG Vent. Rate : 097 BPM Atrial Rate : 094 BPM P-R Int : 000 ms QRS Dur : 082 ms QT Int : 360 ms P-R-T Axes : 000 055 052 degrees QTc Int : 457 ms Atrial fibrillation. Abnormal ECG When compared with ECG of 21-DEC-2016 13:57, No significant change was found Unconfirmed Result
[2017-04-25] MEDS: ZOLOFT PO SCH (10:11)
[2017-04-25] MEDS: CATAPRES PO SCH ×3 (10:11→17:01)
[2017-04-25] MEDS: APRESOLINE PO SCH ×3 (10:11→21:13)
[2017-04-25] MEDS: LASIX PO SCH ×2 (10:11→21:14)
[2017-04-25] MEDS: BUSPAR PO SCH ×2 (10:11→21:14)
[2017-04-25] MEDS: ASPIRIN PO SCH (10:12)
[2017-04-25] MEDS: LEVEMIR SUBQ SCH ×2 (10:12→21:17)
[2017-04-25] MEDS: PROTONIX PO SCH ×2 (10:12→21:14)
[2017-04-25] MEDS: LOPRESSOR PO SCH ×2 (10:15→21:14)
[2017-04-25] MEDS: HUMULIN R SUBQ SCH ×3 (14:33→21:20)
[2017-04-25] MEDS: LOVENOX SUBQ SCH (14:34)
--- NOTE | 2017-04-25 15:19 | PROGRESS NOTE ---
DATE: 04/25/2017 The patient is resting comfortably in bed. She is currently attempting to eat lunch. She reports increased swelling in her lower extremities but denies having any shortness of breath or chest pain. OBJECTIVE: Vital Signs: Temperature 97.5 degrees, blood pressure 156/86, heart rate 73, respirations 20, O2 saturation is 100% on 2 L nasal cannula. Output: 1.5 L. General: This is a morbidly obese female, lying in bed, in no acute distress. Head: Normocephalic, atraumatic. Heart: S1, S2. Normal. Irregularly irregular rhythm. Lungs: Equal air entry bilaterally. No crackles. No rales. Abdomen: Positive bowel sounds. Soft, obese, nontender, nondistended. Extremities: 3+ edema. No cyanosis. No calf tenderness. Neurologic: The patient is alert and oriented x3. LABS: White blood cell count 7.1, hemoglobin 11, hematocrit 35 platelets 274, 000. Sodium 141, potassium 4.8, chloride 110, CO2 20, BUN 53 creatinine 3.3, glucose 126, calcium 8.3. Head CT shows a small stroke in the left occipital lobe. ASSESSMENT AND PLAN: 1. Acute left occipital lobe infarct. The patient states that she was on aspirin and Eliquis at 1 point, but that was discontinued due to GI bleeding. Given the fact that the patient is in atrial fibrillation, she likely needs some sort of anticoagulation. We will consult the leveler to weigh in on this issue. The case was discussed with the neurologist, Dr. Soares. We will continue with physical therapy and Lipitor plus full dose aspirin for now. 2. Atrial fibrillation. The patient is currently rate controlled. Continue on metoprolol. Cardiology has been consulted to weigh in on restarting anticoagulation in light of the patient's new stroke. 3. Chronic kidney disease.Stable. 4. Chronic lower extremity edema. The patient is currently on Lasix 80 mg twice a day. We will continue on this for now. 5. Hypothyroidism, continue on Synthroid. 6. Diabetes mellitus type 2. Continue on Levemir plus sliding scale insulin. 7. Hypertension. We will monitor the patient's blood pressure closely in light of this new stroke. 8. Chronic obstructive pulmonary disease, stable. cc: Aga Kearns MD [facility]ITAL[facility]ina
--- NOTE | 2017-04-25 16:48 | CONSULTATION ---
DATE OF CONSULTATION: 04/25/2017 REASON FOR CONSULTATION: The patient is seen in consultation at the request of Dr. Kearns for evaluation of stroke. HISTORY OF PRESENT ILLNESS: 56 y/o right-handed female with multiple comorbidities presenting with focal neurologic changes, left occipital infarct on head CT. Onset was Tuesday. She suddenly felt unwell with right arm and leg weakness and sensory loss of the right face, arm and leg. She had slurred speech as well to the point that it was unintelligible per the . She has a history of atrial fibrillation and had most recently on Eliquis 2.5 mg b.i.d. per records as well as low-dose aspirin. These medications were discontinued I see from a hospitalization 11/26/2016 due to hematemesis and hematuria. The discharge summary notes under the discharge medications that Eliquis and aspirin were discontinued and that she was supposed to resume these medications in 1 week per the GI recommendations. The patient tells me she has been off of these medications since that time however. They also say she has been on warfarin and Xarelto in the past, also having some sort of bleeding complication. Also of note she has coronary artery disease with history of stenting as well as coronary bypass but is not currently on an antiplatelet at home. PAST MEDICAL HISTORY: 1. Atrial fibrillation, not currently on anticoagulation. 2. Coronary artery disease status post stents, status post bypass grafting, not currently on anti- platelet therapy. 3. End-stage renal disease improved and no longer requiring hemodialysis. 4. Congestive heart failure. 5. Hypertension. 6. Poorly controlled type 2 diabetes. 7. Morbid obesity. 8. Hypothyroidism. 9. Previous bleeding complications in the setting of anticoagulation and aspirin. 10. Appendectomy, Cholecystectomy, Hysterectomy, Two C sections. SOCIAL HISTORY: Former smoker. No alcohol or illicit drug abuse. Mostly in a wheelchair. She is and lives with her . FAMILY HISTORY: Notable for coronary artery disease, diabetes, hypertension. ALLERGIES: To Mobic, vancomycin, clindamycin. MEDICATIONS CURRENT: Notable for aspirin 325 mg daily started on admission, Lipitor 80 mg, metoprolol, hydralazine, Lasix, clonidine REVIEW OF SYSTEMS: A balance of 12 was conducted notable for that mentioned in the HPI. In addition, she has had some mild headache. No nausea, vomiting. PHYSICAL EXAMINATION: Vital Signs: Blood pressure 173/100 on admission 2 days ago, currently 156/86, afebrile, pulse 85, respirations 18. Morbidly obese female, sitting up in bed. at bedside. No acute distress. Normocephalic, atraumatic. Neck Supple. Pulses intact. There is some edema of the extremities. Abdomen soft, obese nontender. Skin: Warm, dry, and intact. SCDs are in place. She is awake and alert. She is oriented. There is some dysarthria and overall slowed speech. remote and recent memory intact. PERRL, Ocular movements full. There does appear to be at least a partial right field cut. Face is symmetric with equal activation. Reduced sensation to the right lower face. Tongue is midline. She has a significant right hemiparesis in an [place] distribution pattern. She reports sensory loss to the right face, arm and leg on testing. Reflexes are diminished to 1+ throughout, symmetric. Absent ankle jerks. Toes are mute. No clonus. No evidence of incoordination on testing. Gait was not tested. DIAGNOSTICS: Noncontrasted head CT was personally reviewed. Shows a small left occipital lobe infarct. An echocardiogram was performed and was a limited study due to the patient's size. EKG on admission showed atrial fibrillation. Lab work reviewed. Notably total cholesterol is 149, LDL 79, HDL 27, triglycerides 274. ASSESSMENT AND PLAN: 56-year-old right-handed female with multiple cardiovascular risk factors now with a small left occipital infarct on head CT. She has a right field cut but also right hemiparesis/hemisensory loss. Notably she has history of atrial fibrillation not on anticoagulation and coronary disease not on anti-platelet therapy since a hospital admission for bleeding complications on November 26 of this year. There was note in the discharge summary that she should resume these medications though it is unclear if that ever occurred. A stroke limited only to the occipital lobe would not explain all of her symptoms and I suspect the extent of infarct is more than can be visualized on CT. Unfortunately she is unable to go for an MRI because she exceeds the weight limit. Either way she does have known atrial fibrillation and she should be on anticoagulation if she can tolerate it. If not then a full- dose aspirin. Continue her Lipitor at home dose. Her home antihypertensives have been continued on admission and she has done well with this with reasonable blood pressure so it is okay to continue. Long- term goal would be tight glucose control and a blood pressure less than 140/90. Exercise and diet change are also essential. Agree with cardiology consult to have their opinion about anticoagulation in the setting of atrial fibrillation as well as her anti- platelet therapy in the setting of coronary disease. We may also need an opinion from GI. PT/OT/ST. Thank you for this consultation. cc: Adrianna Watson MD MTDD
[2017-04-25] MEDS: NORCO-10 PO PRN (21:14)
[2017-04-25] MEDS: LIPITOR PO SCH (21:14)
[2017-04-26] MEDS: NORCO-10 PO PRN ×2 (03:20→15:27)
[2017-04-26] MEDS: HUMULIN R SUBQ SCH ×4 (06:08→22:44)
[2017-04-26] MEDS: SYNTHROID PO SCH (06:11)
[2017-04-26 06:41] LABS: HEMATOCRIT 35.7 % (37.0-47.0); HEMOGLOBIN 10.9 g/dL (12.0-16.0); MCH 26.5 PG (27-31); MCHC 30.5 g/dL (33-37); MCV 86.7 FL (81-99); MPV 10.4 FL (7.4-10.4); RBC 4.12 XMIL (4.2-5.4)
[2017-04-26 07:04] LABS: ALBUMIN 2.8 g/dL (3.5-5.0); CALCIUM 7.8 mg/dL (8.8-10.2); POTASSIUM 4.8 mmol/L (3.5-5.1)
[2017-04-26] MEDS: ASPIRIN PO SCH (09:15)
[2017-04-26] MEDS: PROTONIX PO SCH ×2 (09:15→22:09)
[2017-04-26] MEDS: LEVEMIR SUBQ SCH ×2 (09:15→22:45)
[2017-04-26] MEDS: CATAPRES PO SCH ×3 (09:15→17:55)
[2017-04-26] MEDS: ZOLOFT PO SCH (09:15)
[2017-04-26] MEDS: BUSPAR PO SCH ×2 (09:15→22:10)
[2017-04-26] MEDS: LOPRESSOR PO SCH ×2 (09:15→22:09)
[2017-04-26] MEDS: APRESOLINE PO SCH ×3 (09:15→22:09)
[2017-04-26] MEDS: LASIX PO SCH ×2 (09:16→22:09)
[2017-04-26] MEDS: LOVENOX SUBQ SCH (13:22)
[2017-04-26] MEDS: PLAVIX PO SCH (13:24)
--- NOTE | 2017-04-26 13:24 | CONSULTATION ---
DATE OF CONSULTATION: 04/26/2017 REASON FOR CONSULT: A 56-year-old cardiology was consulted to see for anticoagulation and given the fact that patient is admitted with new CVA. HISTORY OF PRESENT ILLNESS: This is 56-year-old lady with morbid obesity, chronic kidney disease, diabetes type 2, COPD, known coronary artery disease, came to the emergency room and admitted with slurred speech, left-sided weakness. She had a CT scan of the head done which revealed new stroke in the left occipital lobe. Since admission she has improved. From a cardiac standpoint, she does not complain of any chest pain. No palpitations. Her exercise capacity significantly limited. There is no orthopnea or paroxysmal nocturnal dyspnea. PAST MEDICAL HISTORY: 1. Coronary artery disease status post drug-eluting stent to RCA in 2005, bare metal stent to obtuse marginal artery in 2005, and re-stenting in 2006. 2. Coronary artery disease status post coronary artery bypass grafting with BENITES to left anterior descending at [facility] in 2003. 3. Last cardiac catheterization was in 11/28/2014 at [facility]. Left main 20%, LAD proximal 20%, LAD mid 90%, distal 100%, and BENITES present. Circumflex stent patent. OM-1 40%, OM-2 40% RCA mid 30%. Previous stent patent. BENITES to LAD normal. Small distal vessels. 4. History of lacunar infarct in the past. 5. Hypothyroidism. 6. Multiple GI bleed with GI bleeding on 3 occasions. Recently admitted at [facility] in November with hematemesis. Subsequently in January had rectal bleeding. She was on Eliquis for stroke prophylaxis, given her atrial fibrillation, and elevated CHADS-VASc score. Since then she has not been on Eliquis or any blood thinners. 7. Edema. 8. Chronic venous stasis ulcers. 9. History of nephrotic syndrome, renal failure, dialysis in the past, has chronic renal insufficiency. 10. Chronic pain disorder. 11. Epistaxis. 12. Sleep apnea. 13. Last stress test in 2014 was unremarkable. 14. Atrial fibrillation, cardioverted in 2014. 15. Diastolic dysfunction. 16. Diastolic heart failure. 17. Hysterectomy, cholecystectomy, and appendectomy. 18. Diabetes. CURRENT MEDICATIONS: Include. 1. Atorvastatin 80. 2. BuSpar 5. 3. Clonidine 0.1 t.i.d. 4. Lovenox. 5. Lasix 80 mg p.o. b.i.d. 6. Hydralazine 25 mg p.o. 7. Levemir. 8. Levothyroxine 88. 9. Metoprolol 50 b.i.d. 10. Protonix. 11. Aspirin. ALLERGIES: She is allergic to vancomycin, meloxicam, clindamycin. PHYSICAL EXAMINATION: Vital Signs: Blood pressure was 156/75. Cardiovascular System: Normal jugular venous pressure. There is no thyromegaly. No carotid bruit. First and second heart sounds were heard. There is no S3 gallop. Respiratory System: Distant breath sounds. Normal air entry. Abdomen: Obese, soft, nontender. There was no guarding or rigidity. Bowel sounds were heard. Extremities: Reveal mild edema. Central nervous system: Alert, oriented. Was moving extremities. Detailed central nervous system examination not performed. Her speech had significantly improved. ASSESSMENT AND PLAN: 1. Ms. Lore Sheridan is a 56-year-old lady with a history of morbid obesity, chronic kidney disease, BUN 58 and creatinine 3.6, with dialysis in the past, currently not undergoing dialysis. Has COPD, diastolic heart failure, coronary artery disease, status post coronary artery bypass grafting, multiple stents, and had paroxysmal atrial fibrillation and underwent cardioversion in 2015. She is admitted with new stroke. From anticoagulation therapy, she has been on Xarelto, Eliquis, and Pradaxa in the past. Has had multiple issues with bleeding. She has had colonoscopy and has had gastritis in the past. She came in be GI bleeding in November of this year and subsequently discharged home. She was on Eliquis and had rectal bleeding. She has not been taking any Eliquis or aspirin since then. She is at a very high risk for having recurrent GI bleeds as has been obvious historically. Given this, as far as recommendations are concerned, we would recommend 81 mg of enteric-coated aspirin in addition to Plavix 75 mg a day. 2. She can go back to rehab I will follow her up in the office in about 6 weeks. Hypertension, continue with the current medications. 3. . She has hyperlipidemia. Continue with lipid-lowering agents. 4. Hypertension. Blood pressure is stable. If necessary we can adjust the dose of hydralazine which she is on. 5. Hemoglobin and hematocrit are stable during this hospitalization. Continue current medications. 6. She has chronic renal insufficiency with dialysis in the past. Is followed by nephrology as an outpatient. I have not made any other changes. cc: Buddy Curry MD
--- NOTE | 2017-04-26 14:23 | PROGRESS NOTE ---
DATE: 04/26/2017 SUBJECTIVE: No major complaints overnight. The patient is making some improvements in her strength. She is working with therapy. She says she never did restart the Eliquis 2.5bid and ASA 81mg after one week upon her hospital discharge from 11/26/16. Seems they were thinking of a retrial. OBJECTIVE: Vital Signs: Reviewed. Blood pressure 148/88. Pulse 78. Respirations 18. Afebrile. She is a morbidly obese female sitting up in bed, no acute distress. Normocephalic atraumatic. There is swelling of the extremities. Pulses were intact. Abdomen: Obese, soft , nontender. She is awake and alert. She is oriented. Her speech is fluent although slowed. There is some mild dysarthria. PERRL, conjugate gaze. Ocular movements full. There is a right field cut. Face is symmetric. Equal activation. On strength testing she requires encouragement. At one point, with deltoid testing she drops the arm before I even apply resistance. Her effort is improved and she shows at least a 4/5 in most areas though there seems to be an upper motor neuron pattern and a weak hand radio assembler underlying this. Still reporting reduced sensation on the right side but she says it is much better compared to yesterday. No evidence of incoordination on testing. DIAGNOSTICS: White count normal, hemoglobin 11, hematocrit 36. Platelets 262, 000. BUN 55. Creatinine 3.3, glucose 176. ASSESSMENT AND PLAN: A 56-year-old, right-handed, female with a small left occipital stroke on head CT, right field cut and improved right hemiparesis and sensory loss. It is reassuring that she is improving though notably today she does require repeated encouragement on strength testing. I do suspect the extent of the infarct may be slightly more than what is visualized on the head CT but she is unable to go for the MRI due to exceeding the weight limit. Again I would recommend anticoagulation since she has atrial fibrillation, if she can tolerate it. If not, then she should at least be on antiplatelet therapy. Continue home Lipitor, home antihypertensives. It has been 2 days since the onset of her symptoms and given the small size of the stroke on imaging it should be okay to initiate anticoagulation at this time with lower risk of hemorrhagic conversion. We could obtain a repeat head CT beforehand to reevaluate the extent of infarct should the decision be made to initiate anticoagulation in this patient. cc: Adrianna Watson MD MTDD
--- NOTE | 2017-04-26 15:49 | PROGRESS NOTE ---
DATE: 04/26/2017 SUBJECTIVE: The patient is resting comfortably in bed. She has no complaints. She states that she feels a lot better today. OBJECTIVE: Vital Signs: Temperature 98 degrees, blood pressure 156/75, heart rate 93, respirations 15, O2 saturation is 98% on 2 L nasal cannula. General: This is a morbidly obese female, lying in bed, in no acute distress. Head: Normocephalic, atraumatic. Heart: S1, S2. Normal. Regular rate and rhythm. Lungs: Clear to auscultation bilaterally. No crackles. No rales. Abdomen: Positive bowel sounds. Soft, obese, nontender, nondistended. Extremities: There is 2+ edema. Neurologic: The patient is alert and oriented x3. LABS: White blood cell count 6.9, hemoglobin 10.9, hematocrit 35.7, platelets 262,000. Sodium 138, potassium 4.8, chloride 107, CO2 19, BUN 55, creatinine 3.3, glucose 174, phosphorus 5, albumin 2.8. ASSESSMENT AND PLAN: 1. Acute left occipital lobe infarct. The patient has been seen by the boiling off winder and they recommend that the patient be started on low-dose aspirin plus Plavix. We will continue with physical therapy and occupational therapy. The patient states that she wants to go home with home health. 2. Atrial fibrillation. Continue on metoprolol. 3. Chronic kidney disease. Stable. 4. Chronic lower extremity edema. Continue on Lasix 80 mg p.o. twice a day. 5. Hypothyroidism. Continue on Synthroid. 6. Diabetes mellitus type 2. Continue on Levemir. 7. Morbid obesity. Aware. 8. Hypertension. Stable. 9. Disposition. Hopefully the patient should be able to be discharged home with home health in the next 24-48 hours. cc: Aga Kearns MD
[2017-04-26] MEDS: ZOFRAN IV PRN (18:41)
[2017-04-26] MEDS: LIPITOR PO SCH (22:09)
[2017-04-27] MEDS: SYNTHROID PO SCH (06:38)
[2017-04-27] MEDS: HUMULIN R SUBQ SCH ×4 (06:39→21:55)
[2017-04-27 07:05] LABS: HEMATOCRIT 34.1 % (37.0-47.0); HEMOGLOBIN 10.4 g/dL (12.0-16.0); MCH 26.7 PG (27-31); MCHC 30.5 g/dL (33-37); MCV 87.4 FL (81-99); MPV 10.5 FL (7.4-10.4); RBC 3.9 XMIL (4.2-5.4)
[2017-04-27 07:14] LABS: ALBUMIN 2.8 g/dL (3.5-5.0); CALCIUM 7.8 mg/dL (8.8-10.2); POTASSIUM 5.2 mmol/L (3.5-5.1)
[2017-04-27] MEDS: NS 1,000 ML IV SCH ×2 (09:41→21:52)
[2017-04-27] MEDS: PLAVIX PO SCH (09:42)
[2017-04-27] MEDS: BUSPAR PO SCH ×2 (09:42→21:54)
[2017-04-27] MEDS: CATAPRES PO SCH ×3 (09:42→16:56)
[2017-04-27 09:43] LABS: URINE MICRO REVIEW NEEDED? NO; URINE SOURCE CLEAN CATCH
[2017-04-27] MEDS: APRESOLINE PO SCH ×3 (09:43→21:54)
[2017-04-27] MEDS: PROTONIX PO SCH ×2 (09:43→21:53)
[2017-04-27] MEDS: LEVEMIR SUBQ SCH ×2 (09:43→21:52)
[2017-04-27] MEDS: ZOLOFT PO SCH (09:43)
[2017-04-27] MEDS: ASPIRIN PO SCH (09:43)
[2017-04-27] MEDS: LOPRESSOR PO SCH ×2 (09:43→21:54)
[2017-04-27 09:53] LABS: BILIRUBIN URINE NEGATIVE (NEGATIVE); BLOOD URINE TRACE (NEGATIVE); COLOR YELLOW; GLUCOSE URINE 500 mg/dL (NEGATIVE); LEUKOCYTES URINE SMALL (NEGATIVE); NITRITE URINE NEGATIVE (NEGATIVE); PH URINE 6.5; PROTEIN URINE 600 mg/dL (NEGATIVE); SP GRAVITY URINE 1.012; TURBIDITY URINE CLEAR (CLEAR); UROBILINOGEN URINE NORMAL (NORMAL)
[2017-04-27 09:55] LABS: UR EPITHELIAL CELLS <10 /HPF (<10); URINE BACTERIA 1+ /HPF; URINE RBC <10 /HPF (<10)
[2017-04-27 10:18] LABS: UR CREAT RANDOM 76.2 mg/dL (11-20); UR PROT RANDOM 563.9 mg/dL
[2017-04-27] MEDS: KEFLEX PO SCH ×2 (11:13→21:53)
--- NOTE | 2017-04-27 11:55 | Diag Imaging Result Doc PS360 ---
HEAD W/O CONTRAST - 04/27/2017 INDICATION: recent stroke TECHNIQUE: A CT dose reduction protocol was used. COMPARISON: 04/23/2017 FINDINGS: There is no change from prior. There is a small area of hypodensity at the medial left occipital lobe compatible with an old stroke of at least a couple days age. Stable mild chronic microvascular disease of the cerebral hemispheres. IMPRESSION: No change from prior. Electronically signed by Jean Sanchez 04/27/2017 11:53 AM
--- NOTE | 2017-04-27 12:04 | PROGRESS NOTE ---
DATE: 04/27/2017 Ms. Sheridan has imaging evidence of small left occipital infarction with right visual field loss and right-sided weakness and numbness. at bedside reports that she did not tolerate new anticoagulant medicine, most recently Eliquis, because of GI bleeding. She has had nose-bleeding with aspirin and clopidogrel together, and may have had nosebleed with that regimen today. She has atrial fibrillation. In light of her poor tolerance, full anticoagulation may not be an option. At this point, 4 days after onset of stroke or deficit with small infarction noted on imaging, the risk for hemorrhagic conversion is low. If decision is made to carefully try to anticoagulate her, I think there is not neurologic contraindication now. Thanks for asking neurology to see Ms. Sheridan. cc: Dany Haynes III, MD
--- NOTE | 2017-04-27 12:51 | PROGRESS NOTE ---
DATE: 04/27/2017 SUBJECTIVE: The patient had an episode of epistaxis overnight. Once her supplemental oxygen was taken off her nosebleed resolved. OBJECTIVE: Vital Signs: Temperature 97.5 degrees, blood pressure 149/71, heart rate 94, respirations 18, O2 saturations 96% on room air. General: This is a morbidly obese female, lying in bed, in no acute distress. Head: Normocephalic, atraumatic. Heart: S1, S2. Normal. Regular rate and rhythm. Lungs: Clear to auscultation bilaterally. Abdomen: Positive bowel sounds. Soft, nontender, nondistended. Extremities: 2+ edema. Neurologic: The patient is alert and oriented x3. LABS: White blood cell count 7, hemoglobin 10, hematocrit 34, platelets 229, 000. Sodium 137, potassium 5.2 chloride 105, CO2 20, BUN 57, creatinine 3.6, glucose 270, phosphorus 5.4, calcium 7.8, albumin 2.8. ASSESSMENT AND PLAN: 1. Acute occipital lobe infarction. Continue on low-dose aspirin and Plavix. 2. Epistaxis. Resolved. 3. Acute kidney injury on chronic kidney disease. Will hold the patient's Lasix at this time and check urine studies. We will also start the patient on gentle IV fluid hydration. 4. Atrial fibrillation. Continue on metoprolol. 5. Morbid obesity. Aware. 6. Hypothyroidism. Continue on Synthroid. 7. Chronic lower extremity edema. Aware. 8. Hypertension. Stable. 9. Continue with physical therapy. cc: Aga Kearns MD [facility]TD[facility]
[2017-04-27] MEDS: LOVENOX SUBQ SCH (13:22)
[2017-04-27 17:40] LABS: CALCIUM 7.9 mg/dL (8.8-10.2); POTASSIUM 5.6 mmol/L (3.5-5.1)
[2017-04-27] MEDS ORDERED: SODIUM BICARBONATE 8.4% IV PUSH ONE (18:10)
[2017-04-27] MEDS ORDERED: ALBUTEROL 0.5% INH CONC FOR HYPERKALEMIA INH ONE (18:10)
[2017-04-27] MEDS ORDERED: HUMULIN R IV ONE (18:11)
[2017-04-27] MEDS: NORCO-10 PO PRN (19:27)
[2017-04-27] MEDS: LIPITOR PO SCH (21:54)
[2017-04-28] MEDS: HUMULIN R SUBQ SCH ×5 (05:15→21:45)
[2017-04-28] MEDS: NORCO-10 PO PRN ×2 (05:21→21:52)
[2017-04-28] MEDS: SYNTHROID PO SCH (06:30)
[2017-04-28 06:54] LABS: HEMATOCRIT 32.4 % (37.0-47.0); HEMOGLOBIN 9.9 g/dL (12.0-16.0); MCH 26.8 PG (27-31); MCHC 30.6 g/dL (33-37); MCV 87.6 FL (81-99); MPV 10.8 FL (7.4-10.4); RBC 3.7 XMIL (4.2-5.4)
[2017-04-28 07:06] LABS: ALBUMIN 2.9 g/dL (3.5-5.0); POTASSIUM 5.6 mmol/L (3.5-5.1)
[2017-04-28] MEDS ORDERED: ALBUTEROL 0.5% INH CONC FOR HYPERKALEMIA INH ONE (07:36)
[2017-04-28] MEDS ORDERED: SODIUM BICARBONATE 8.4% IV PUSH ONE (07:36)
[2017-04-28] MEDS ORDERED: HUMULIN R IV ONE (07:37)
[2017-04-28] MEDS ORDERED: KAYEXALATE PO ONE (07:39)
[2017-04-28] MEDS: LEVEMIR SUBQ SCH ×2 (09:33→21:44)
[2017-04-28] MEDS: ASPIRIN PO SCH (09:34)
[2017-04-28] MEDS: PLAVIX PO SCH (09:34)
[2017-04-28] MEDS: KEFLEX PO SCH ×2 (09:34→21:43)
[2017-04-28] MEDS: CATAPRES PO SCH ×3 (09:35→16:36)
[2017-04-28] MEDS: LOPRESSOR PO SCH ×2 (09:35→21:44)
[2017-04-28] MEDS: ZOLOFT PO SCH (09:35)
[2017-04-28] MEDS: APRESOLINE PO SCH ×3 (09:35→21:44)
[2017-04-28] MEDS: PROTONIX PO SCH ×2 (09:35→21:44)
[2017-04-28] MEDS: BUSPAR PO SCH ×2 (09:35→21:44)
--- NOTE | 2017-04-28 12:15 | PROGRESS NOTE ---
DATE: 04/28/2017 Ms. Sheridan is awake and alert. She reports no new problems. She has not noticed definite change in her right hemianopia. Her CT scan yesterday showed stable small left occipital infarction with no extension and no bleeding compared to the previous scan. On bedside exam, she is awake and alert. She has full left visual field. She could count fingers inconsistently in the superior right quadrant and she did not count fingers in the inferior right quadrant. I encouraged her to be aggressive with management of her risk factors. I do not have any new suggestion from neurologic standpoint today. cc: Dany Haynes III, MD
[2017-04-28] MEDS: NS 1,000 ML IV SCH (13:12)
[2017-04-28] MEDS: LOVENOX SUBQ SCH (13:13)
[2017-04-28] MEDS ORDERED: HUMALOG SUBQ ONE (14:19)
--- NOTE | 2017-04-28 15:08 | PROGRESS NOTE ---
DATE: 04/28/2017 SUBJECTIVE: The patient is resting comfortably in bed. She has no complaints today. OBJECTIVE: Vital Signs: Temperature 97.7 degrees, blood pressure 119/68, heart rate 90, respirations 18, O2 saturations 97% on 2 L nasal cannula. General: This is a morbidly obese female, lying in bed, in no acute distress. Head: Normocephalic atraumatic. Heart: S1, S2. Normal. Regular rate and rhythm. Lungs: Equal air entry bilaterally. No crackles. No rales. Abdomen: Positive bowel sounds. Soft, obese, nontender, nondistended. Extremities: 2+ edema. No cyanosis. No calf tenderness. Neurologic: The patient is alert and oriented x3. LABS: Sodium 134, potassium 5.3, chloride 101, CO2 19, BUN 60, creatinine 3.9, glucose 349. Hemoglobin 9.9, hematocrit 32, white blood cell count 8.5. ASSESSMENT AND PLAN: 1. Acute kidney injury on chronic kidney disease. The patient's BUN and creatinine continue to rise. Will await further recommendations from the program proposals coordinator. 2. Urinary tract infection. The urine culture is growing gram-positive cocci. Will continue on Keflex for now. 3. Acute occipital lobe infarction. Continue on low-dose aspirin plus Plavix. Continue with physical therapy and occupational therapy. 4. Hypothyroidism. Continue on Synthroid. 5. Morbid obesity. Aware. 6. Chronic lower extremity edema. Aware. 7. Hypertension. Controlled. 8. Hyperkalemia. Will treat this and monitor closely. 9. Uncontrolled insulin dependent diabetes mellitus. Continue on Levemir 55 units BID. 10. Continue with physical therapy. 11. Disposition. Once the patient is medically stable she will be discharged home with home health. cc: Aga Kearns MD [facility]TD[facility]
--- NOTE | 2017-04-28 15:19 | CONSULTATION ---
DATE OF CONSULTATION: 04/28/2017 REASON FOR ADMISSION: Slurred speech with left-sided weakness and blurred vision. REASON FOR CONSULTATION: Acute kidney injury on CKD stage IV. HISTORY OF PRESENT ILLNESS: Ms. Sheridan is a 56-year-old, morbidly obese, white female, who has been seen in our practice in the past for chronic kidney disease. The patient had been on a short- term of hemodialysis and felt that she had improved with increased urinary output. Her baseline creatinine has been anywhere from 2.9 to 4.9 in the past, even prior to her starting her dialysis. Patient presented with a creatinine of 3.6; it has slowly improved to 3.3. It is noted over the last 2 days it is elevated and is 3.9 today with a BUN of 60. She has been receiving Lasix during this period of time during her hospitalization. It has currently been stopped. Her urine electrolytes are still pending. She has had no renal ultrasound completed secondary to her body habitus. Upon admission to the emergency room, the patient indicated that she had a CAT scan of the head; it was unremarkable in the ER. Subsequently her states that they had found a clot on her left occiput indicating that she can now not see in her right eye with blurred vision. Otherwise, her hospital stay has basically been unremarkable. She has had a cardiology consult for anticoagulation therapy. Patient has had an allergy to heparin and to Coumadin in the past secondary to vaginal bleed and epistasis. She has also been consulted by neurology due to stroke. Patient does have ongoing chronic atrial fibrillation and has been able to be anticoagulated. PAST MEDICAL HISTORY: As mentioned, her past medical history has been acute kidney injury with end-stage renal disease. Patient has nephrotic syndrome. She has a chronic renal insufficiency with a CKD stage IV. Baseline creatinine as mentioned. She has diabetes mellitus type 2, COPD, CHF, chronic edema, chronic atrial fibrillation and now CVA. She is also hypothyroid. She has chronic urinary tract infections. PAST SURGICAL HISTORY: She has had a hysterectomy, cholecystectomy and an appendectomy. SOCIAL HISTORY: She is . She lives with her spouse. She is mostly wheelchair-bound. She is a former smoker. She denies any tobacco or alcohol use. FAMILY HISTORY: Positive for coronary artery disease with her father. No renal disease. CURRENT ALLERGIES: Vancomycin, Mobic and clindamycin. CURRENT HOME MEDICATIONS: 1. Lipitor. 2. Furosemide. 3. Catapres. 4. BuSpar. 5. Lopressor. 6. [place]. 7. Synthroid. 8. Prevacid. 9. Levemir. 10. Sertraline. 11. Humalog. 12. Apresoline. REVIEW OF SYSTEMS: Review of systems times 10 with pertinent positives listed above in the HPI. VITAL SIGNS: Her most recent vital signs are temperature 98.2 degrees, blood pressure 143/83, heart rate 79, respirations 18. She is on 2 L nasal cannula. Last recorded saturation 98%. She has had 1840 in; she has had 1850 out. She has been in a negative fluid balance for the last 48- 72 hours, approximately 3 L negative. LABS: Her most recent labs: Sodium 134, potassium 5.6, chloride 101, CO2 19, BUN 60, creatinine 3.9, glucose 349. Her anion gap is 14, calcium 8, phosphorus 5.3, albumin 2.9. White count 8.51, hemoglobin 9.9, hematocrit 32.4 with a platelet count of 218. Patient has positive urinary tract infection gram-positive cocci. PHYSICAL EXAMINATION: General: This is a 57-year-old white female. She is sitting up in her bed. She is eating her breakfast. She has no complaints. She is able to use both her left and her right hand equal strength. She does complain of blurred vision to the right. HEENT: Normocephalic, atraumatic. Conjunctiva is pink. She has ARTUR. Mucous membranes are moist. Neck: Supple. Trachea midline. She has questionable JVD due to body habitus and elevation of the head of the bed. Cardiovascular: Regular rate and rhythm. She has no murmur or gallop appreciated, but distant heart sounds are noted. Lungs: Clear to auscultation anterior. She is currently on O2, equal excursion. Distant lung sounds noted. Abdomen: Large, obese, soft, nontender. Positive bowel sounds noted. Genitourinary: Not inspected. The patient has a Martinez catheter. Adequate urine out. Extremities: She has 1+ lower extremity edema with chronic venous stasis. Neurological: She is alert and oriented x3. ASSESSMENT AND PLAN: 1. Acute kidney injury on chronic kidney disease stage IV. Patient is actually at her baseline of 3.3 to 3.9 in the last year after renal recovery. She is no longer on dialysis. At this point there are no indications for intervention. We would agree with holding her Lasix. She continues with adequate fluid volume intake, adequate urine output is noted. We will continue to monitor. She has urine electrolytes still pending. 2. Electrolytes. These are stable with mild hyperkalemia. No need for intervention at this time. 3. Acid-base balance. This has been stable. 4. Anemia. This remains low, but stable. 5. Transient ischemic stroke with residual effect to her right eye with blurred vision. This is followed by the primary care team with neurology. 6. Chronic atrial fibrillation. Patient has now been placed on Plavix with a baby aspirin. This is now being followed by the primary care team and cardiology. I would like to thank you for allowing us to follow with this patient. Seen, data reviewed, discussed with Chio Linares on 04/28/17. I agree with the above assessment and plan of care. rg Dictated by ALICE Carrillo for Nba Navarrete MD cc: ALICE Carrillo MD [facility]
[2017-04-28] MEDS ORDERED: INSULIN PEN NEEDLES ONE (21:36)
[2017-04-28] MEDS: LIPITOR PO SCH (21:44)
[2017-04-29] MEDS: SYNTHROID PO SCH (06:58)
[2017-04-29] MEDS: HUMULIN R SUBQ SCH ×4 (06:59→22:08)
[2017-04-29 07:31] LABS: ALBUMIN 2.8 g/dL (3.5-5.0); CALCIUM 7.9 mg/dL (8.8-10.2); POTASSIUM 5.3 mmol/L (3.5-5.1)
[2017-04-29] MEDS: ZOLOFT PO SCH (08:55)
[2017-04-29] MEDS: ASPIRIN PO SCH (08:55)
[2017-04-29] MEDS: APRESOLINE PO SCH ×3 (08:55→22:07)
[2017-04-29] MEDS: LEVEMIR SUBQ SCH ×2 (08:55→22:08)
[2017-04-29] MEDS: BUSPAR PO SCH ×2 (08:55→22:05)
[2017-04-29] MEDS: PROTONIX PO SCH ×2 (08:55→22:07)
[2017-04-29] MEDS: KEFLEX PO SCH (08:55)
[2017-04-29] MEDS: LOPRESSOR PO SCH ×2 (08:56→22:06)
[2017-04-29] MEDS: PLAVIX PO SCH (08:56)
[2017-04-29] MEDS: CATAPRES PO SCH ×3 (08:56→22:04)
--- NOTE | 2017-04-29 10:24 | PROGRESS NOTE ---
DATE: 04/29/2017 SUBJECTIVE: She is lying in bed. She is eating her breakfast. She is not on oxygen. No shortness of breath. OBJECTIVE: Vital Signs: Blood pressure 135/81, heart rate 75, respirations 15, afebrile. Intake 1.3 liters, output 1.5 liters. General: On physical exam, no acute distress. Skin: Warm and dry. HEENT: Conjunctivae are pink. Neck: The neck veins are not appreciated. Heart: Regular without gallops. Distant. Lungs: Have equal breath sounds. No crackles. Abdomen: Obese and soft. Bowel sounds present. Extremities: Have 2+ edema. No clubbing or cyanosis. LABORATORY DATA: Sodium 136, potassium 5.3, chloride 104, bicarbonate 20, BUN 62, creatinine 3.8. Hemoglobin 9.9. IMPRESSION: 1. Chronic kidney disease stage 5. She is really at her historical baseline. I will restart her diuretics. I stopped her fluids yesterday. Okay for discharge from my perspective, and we will arrange for outpatient followup. 2. Electrolytes are acceptable. 3. Acid base, acceptable. 4. Anemia has been within target up until yesterday. Hemoglobin is 9.9. We will follow this as an outpatient. cc: Nba Navarrete MD
[2017-04-29] MEDS: LOVENOX SUBQ SCH (14:32)
--- NOTE | 2017-04-29 14:56 | PROGRESS NOTE ---
DATE: 04/29/2017 SUBJECTIVE: The patient has had 2 episodes of epistaxis this morning. She has no other complaints at this time. OBJECTIVE: Vital Signs: Temperature 98.2 degrees, blood pressure 136/68, heart rate 74, respirations 16, O2 saturations 98% on room air. General: This is a morbidly obese female, lying in bed, in no acute distress. Head: Normocephalic, atraumatic. Heart: S1, S2 normal. Irregularly irregular rhythm. Lungs: Equal air entry bilaterally. No crackles. No rales. Abdomen: Positive bowel sounds soft, obese, nontender, nondistended. Extremities: 2 to 3+ edema. No cyanosis. No calf tenderness. Neurologic: The patient is alert and oriented x3. LABORATORY DATA: Sodium 136, potassium 5.3, chloride 104, CO2 of 20. BUN 62. Creatinine 3.8. Glucose 200. ASSESSMENT AND PLAN: 1. Epistaxis. The patient is on aspirin and Plavix. Will ask the vice president supply chain to re-evaluate the antiplatelet medications. We will also ask ENT to assess the patient. 2. Chronic kidney disease. Will continue to monitor this closely. 3. Mild hyperkalemia. Stable. 4. Acute occipital infarction. We will continue with physical therapy and occupational therapy. 5. Uncontrolled diabetes mellitus, type 2. Continue on Levemir plus sliding scale insulin. 6. Morbid obesity.Aware. 7. Atrial fibrillation. The patient is currently rate controlled. 8. Urinary tract infection secondary to Enterococcus. We will switch the patient to amoxicillin. 9. Chronic lower extremity edema. Management as per the treasurer. DISPOSITION: We will plan to possibly discharge the patient home tomorrow. cc: Aga Kearns MD [facility]
[2017-04-29] MEDS: NORCO-10 PO PRN (22:05)
[2017-04-29] MEDS: LIPITOR PO SCH (22:06)
[2017-04-29] MEDS: AMOXIL PO SCH (22:07)
[2017-04-30] MEDS: HUMULIN R SUBQ SCH ×4 (06:15→21:20)
[2017-04-30] MEDS: SYNTHROID PO SCH (06:15)
[2017-04-30 06:40] LABS: HEMATOCRIT 33.1 % (37.0-47.0); HEMOGLOBIN 10.1 g/dL (12.0-16.0); MCH 27.2 PG (27-31); MCHC 30.5 g/dL (33-37); MCV 89.2 FL (81-99); MPV 10.8 FL (7.4-10.4); RBC 3.71 XMIL (4.2-5.4)
[2017-04-30 07:01] LABS: ALBUMIN 2.6 g/dL (3.5-5.0); CALCIUM 8.3 mg/dL (8.8-10.2); POTASSIUM 5.6 mmol/L (3.5-5.1)
[2017-04-30] MEDS: APRESOLINE PO SCH ×3 (08:45→21:19)
[2017-04-30] MEDS: BUSPAR PO SCH ×2 (08:45→21:18)
[2017-04-30] MEDS: PLAVIX PO SCH (08:45)
[2017-04-30] MEDS: LEVEMIR SUBQ SCH ×2 (08:46→21:19)
[2017-04-30] MEDS: ASPIRIN PO SCH (08:47)
[2017-04-30] MEDS: CATAPRES PO SCH ×3 (08:47→21:18)
[2017-04-30] MEDS: PROTONIX PO SCH ×2 (08:47→21:19)
[2017-04-30] MEDS: AMOXIL PO SCH ×2 (08:47→21:19)
[2017-04-30] MEDS: ZOLOFT PO SCH (08:47)
[2017-04-30] MEDS: LOPRESSOR PO SCH ×2 (08:47→21:19)
[2017-04-30] MEDS ORDERED: HUMULIN R IV ONE ×2 (10:27→18:46)
[2017-04-30] MEDS ORDERED: SODIUM BICARBONATE 8.4% IV ONE ×2 (10:27→18:46)
[2017-04-30] MEDS ORDERED: ALBUTEROL 0.5% INH CONC FOR HYPERKALEMIA INH ONE ×2 (10:27→18:45)
[2017-04-30] MEDS ORDERED: KAYEXALATE PO ONE (10:30)
[2017-04-30] MEDS: LOVENOX SUBQ SCH (12:45)
[2017-04-30] MEDS ORDERED: VELTASSA PO ONE (18:48)
[2017-04-30] MEDS ORDERED: CARDIZEM PO ONE (21:00)
[2017-04-30] MEDS: LIPITOR PO SCH (21:19)
[2017-04-30] MEDS: NORCO-10 PO PRN (21:28)
[2017-04-30 22:22] LABS: CALCIUM 8.2 mg/dL (8.8-10.2); POTASSIUM 4.9 mmol/L (3.5-5.1)
[2017-05-01] MEDS: NORCO-10 PO PRN ×2 (04:48→21:32)
[2017-05-01] MEDS: SYNTHROID PO SCH (06:21)
[2017-05-01] MEDS: HUMULIN R SUBQ SCH ×4 (06:21→21:30)
[2017-05-01 07:30] LABS: ALBUMIN 2.7 g/dL (3.5-5.0)
[2017-05-01 07:42] LABS: POTASSIUM 5.7 mmol/L (3.5-5.1)
[2017-05-01] MEDS ORDERED: SODIUM BICARBONATE 8.4% IV ONE (07:45)
[2017-05-01] MEDS ORDERED: ALBUTEROL 0.5% INH CONC FOR HYPERKALEMIA INH ONE (07:45)
[2017-05-01] MEDS ORDERED: HUMULIN R IV ONE (07:46)
[2017-05-01] MEDS: ZOLOFT PO SCH (08:21)
[2017-05-01] MEDS: BUSPAR PO SCH ×2 (08:21→21:33)
[2017-05-01] MEDS: CATAPRES PO SCH ×3 (08:21→21:38)
[2017-05-01] MEDS: AMOXIL PO SCH ×2 (08:21→21:32)
[2017-05-01] MEDS: ASPIRIN PO SCH (08:21)
[2017-05-01] MEDS: PROTONIX PO SCH ×2 (08:22→21:33)
[2017-05-01] MEDS: LEVEMIR SUBQ SCH ×2 (08:22→21:31)
[2017-05-01] MEDS: PLAVIX PO SCH (08:22)
[2017-05-01] MEDS: LOPRESSOR PO SCH ×2 (08:22→21:32)
[2017-05-01] MEDS: APRESOLINE PO SCH ×3 (08:23→21:33)
[2017-05-01] MEDS ORDERED: CARDIZEM PO SCH (09:00)
[2017-05-01] MEDS ORDERED: VELTASSA PO SCH ×2 (09:00→21:00)
[2017-05-01] MEDS: LOVENOX SUBQ SCH (14:40)
--- NOTE | 2017-05-01 14:47 | PROGRESS NOTE ---
DATE: 05/01/2017 SUBJECTIVE: The patient started experiencing palpitations and chest pain last night. She was noted to be in atrial fibrillation with rapid ventricular response at that time. The patient was started on oral Cardizem and improved. OBJECTIVE: Vital Signs: Temperature 97.8 degrees, blood pressure 149/80, heart rate 78, respirations 18, O2 saturations 96% on room air. General: This is a morbidly obese female, lying in bed, in no acute distress. Head: Normocephalic, atraumatic. Heart: S1, S2. Normal. Irregularly irregular rhythm. Lungs: Clear to auscultation bilaterally. No wheezing. No rales. No rhonchi. Abdomen: Positive bowel sounds. Soft, obese, nontender, nondistended. Extremities: 2+ edema in the right lower extremity. Neurologic: The patient is alert and oriented x3. LABORATORY: Sodium 136, potassium 5.7, chloride 105, CO2 18, BUN 65, creatinine 4, glucose 390, phosphorus 5.4. ASSESSMENT AND PLAN: 1. Chronic kidney disease. Unchanged. Management as per the service planner. 2. Persistent hyperkalemia. We will treat this and start the patient on Veltassa at dinner. Will place the patient on a low potassium diet. 3. Metabolic acidosis. Stable. 4. Uncontrolled insulin-dependent diabetes mellitus. We will increase the patient's Levemir dosage to 60 units subcutaneous twice a day. 5. Atrial fibrillation. The patient has been started on oral Cardizem by the coremaker supervisor. We will continue to monitor this closely. 6. Acute occipital infarction. Continue on aspirin and Plavix. 7. Epistaxis. Resolved. 8. Morbid obesity. Aware. 9. Hypertension. Controlled. 10. Anemia. The patient's hemoglobin and hematocrit are stable. 11. Urinary tract infection secondary to Enterococcus faecalis. Continue on amoxicillin. 12. Hypothyroidism. Continue on Synthroid. 13. Deep vein thrombosis prophylaxis. Continue on Lovenox. 14. Continue with physical therapy. cc: Aga Kearns MD [facility]
--- NOTE | 2017-05-01 16:43 | PROGRESS NOTE ---
DATE: 04/30/2017 SUBJECTIVE: The patient is resting comfortably in bed. The patient has not had another nosebleed today. He is still working with Physical Therapy. OBJECTIVE: Vital Signs: Temperature 97.6 degrees, blood pressure 135/79, heart rate 70, respirations 20, O2 saturations 98% on 2 L nasal cannula. General: This is a morbidly obese female, lying in bed, in no acute distress. Head: Normocephalic, atraumatic. Heart: S1, S2. Normal. Regular rate and rhythm. Lungs: Clear to auscultation bilaterally. No crackles. No rales. Abdomen: Positive bowel sounds. Soft, nontender, nondistended. Extremities: 2+ edema. No cyanosis. No calf tenderness. Neurological: Patient is alert and oriented x3. LABS: White blood cell count 7.2, hemoglobin 10, hematocrit 33, platelets 207, 000. Sodium 137, potassium 5.6, chloride 104, CO2 19, BUN 64, creatinine 4, glucose 339, phosphorus 5.4. ASSESSMENT AND PLAN: 1. Epistaxis. Resolved. 2. Acute occipital infarction. Continue on aspirin and Plavix 3. Hyperkalemia. Will treat with sodium bicarbonate, IV insulin, and albuterol. Will repeat the potassium level later this afternoon. 4. Chronic kidney disease. Management as per the precision lens technician 5. Uncontrolled diabetes mellitus type 2. Continue on Levemir. 6. Atrial fibrillation. The patient is currently rate controlled. Continue on metoprolol. 7. Urinary tract infection secondary to Enterococcus. Continue on amoxicillin. 8. Chronic lower extremity edema. Stable. 9. Morbid obesity. Aware 10. Disposition. Upon discharge the patient will be provided with home health services to continue with physical therapy as outpatient. cc: Aga Kearns MD [facility]TD[facility]
[2017-05-01] MEDS: VELTASSA PO SCH (18:18)
[2017-05-01] MEDS: LIPITOR PO SCH (21:32)
--- NOTE | 2017-05-02 06:05 | EKG Report ---
Test Performed on : 04/30/2017 8:49:07 PM Test Reason : chest pains Blood Pressure : / mmHG Vent. Rate : 128 BPM Atrial Rate : 136 BPM P-R Int : 000 ms QRS Dur : 086 ms QT Int : 324 ms P-R-T Axes : 000 073 000 degrees QTc Int : 473 ms Atrial fibrillation. with rapid ventricular response. Abnormal ECG When compared with ECG of 23-APR-2017 23:05, Nonspecific T wave abnormality now evident in Lateral leads Confirmed by Gricelda Turner MD ([id number]) on 05/03/2017 6:02:33 AM
[2017-05-02] MEDS: NORCO-10 PO PRN ×4 (06:13→23:46)
[2017-05-02] MEDS: SYNTHROID PO SCH (06:13)
[2017-05-02] MEDS: HUMULIN R SUBQ SCH ×4 (06:16→21:45)
--- NOTE | 2017-05-02 06:47 | Diag Imaging Result Doc PS360 ---
EXAM: CHEST-PORTABLE HISTORY: dyspnea TECHNIQUE: Portable COMPARISON: 04/23/2017 FINDINGS: The lungs are well expanded. Sternal wires are present. The heart is enlarged. Minimal central vascular distention. No pleural effusions identified. IMPRESSION: Improved inspiratory effort, otherwise stable chest. Electronically signed by Alex Cyr 05/02/2017 6:44 AM
[2017-05-02 07:32] LABS: HEMATOCRIT 31.7 % (37.0-47.0); HEMOGLOBIN 9.7 g/dL (12.0-16.0); MCHC 30.6 g/dL (33-37); MCV 88.3 FL (81-99); MPV 10.6 FL (7.4-10.4); RBC 3.59 XMIL (4.2-5.4)
[2017-05-02 07:59] LABS: ALBUMIN 2.9 g/dL (3.5-5.0); CALCIUM 8.1 mg/dL (8.8-10.2); POTASSIUM 5.2 mmol/L (3.5-5.1)
--- NOTE | 2017-05-02 09:41 | PROGRESS NOTE ---
DATE: 05/02/2017 OBJECTIVE: Vital Signs: Temperature 97.6 degrees, pulse 70, respiratory rate 19, blood pressure 123/71. Intake 970 mL. Output 1 L. General: Middle-aged female resting in bed. Awake and alert. No acute distress. HEENT: Normocephalic, atraumatic. Conjunctivae pink. Oral mucosa moist. Neck: Supple. No JVD. Cardiovascular: Regular rate and rhythm. No gallop. Pulmonary: She has equal excursion. There is no increased work of breathing. She has decreased breath sounds noted secondary to body habitus. Abdomen: Obese, soft. Positive bowel sounds. : She has a Martinez catheter. There is yellow urine noted. Extremities: There is 2+ pretibial edema. The right is greater than the left. She does have some erythema noted to the right lower extremity. Integumentary: Skin is warm and dry otherwise. LAB DATA: WBC of 6.6, hemoglobin 9.7, hematocrit 31.7, platelet count 222,000. Sodium 137, potassium 5.2, CO2 20, BUN 67, creatinine 4.3, calcium 8.1, phosphorus 5.4, albumin 2.9. ASSESSMENT AND PLAN: 1. Chronic kidney disease stage 5. She has had a mild increase of the creatinine overnight, although she has been at this level during hospitalization. Her diuretics were again held yesterday. We have restarted her Lasix 80 mg b.i.d. We are aware that her creatinine is slightly above her baseline but we will continue diuresis and will continue to follow this as an outpatient. From a renal perspective, patient can be discharged at the discretion of the primary. 2. Electrolytes, acid-base balance. These are acceptable. She did have some mild hyperkalemia yesterday and was given Veltassa with an appropriate response. 3. Anemia. Continue to follow as an outpatient. Seen, data reviewed, discussed with Pushpa Rodriguez on 05/02/17. I agree with the above assessment and plan of care. rg Dictated by ALICE Lizarraga for Nba Navarrete MD cc: Nba Navarrete MD [facility]
[2017-05-02] MEDS: PLAVIX PO SCH (10:43)
[2017-05-02] MEDS: PROTONIX PO SCH ×2 (10:43→21:44)
[2017-05-02] MEDS: BUSPAR PO SCH ×2 (10:43→21:44)
[2017-05-02] MEDS: CARDIZEM CD PO SCH (10:43)
[2017-05-02] MEDS: AMOXIL PO SCH ×2 (10:43→21:44)
[2017-05-02] MEDS: ZOLOFT PO SCH (10:43)
[2017-05-02] MEDS: APRESOLINE PO SCH ×3 (10:43→21:45)
[2017-05-02] MEDS: LOPRESSOR PO SCH ×2 (10:44→21:44)
[2017-05-02] MEDS: ASPIRIN PO SCH (10:44)
[2017-05-02] MEDS: CATAPRES PO SCH ×3 (10:44→21:44)
[2017-05-02] MEDS: LEVEMIR SUBQ SCH ×2 (10:45→21:46)
[2017-05-02] MEDS: LASIX PO SCH ×2 (10:46→21:45)
[2017-05-02] MEDS: LOVENOX SUBQ SCH (16:06)
--- NOTE | 2017-05-02 17:15 | PROGRESS NOTE ---
DATE: 05/02/2017 SUBJECTIVE: The patient has no focal complaints. OBJECTIVE: Vital Signs: Blood pressure 158/86, heart rate of 88, respiratory rate of 19, temperature 97.6 degrees. Cardiovascular: Regular rate and rhythm. Pulmonary: Bilateral breath sounds. Clear to auscultation. Gastrointestinal: Soft, nontender, nondistended. Bowel sounds are positive. LABORATORY DATA: White count: Hemoglobin and hematocrit was 9 and 31, platelets 222,000, white count 6.6. Potassium 5.2, creatinine 4.3. PROBLEM LIST: 1. Cerebrovascular accident appears to be doing okay. 2. Hyperkalemia. Her level today is 5.2. I think she certainly could have gone home today. The patient's is very concerned about the previous physician's concern about her hyperkalemia, but per the Nephrology service they feel she is stable to go home. 3. Diabetes stable on Levemir. 4. Atrial fibrillation appears to be rate controlled. 5. Acute cerebrovascular accident. She is on aspirin and Plavix. DISPOSITION: I think she probably can go home tomorrow. We will continue to follow. cc: Delvin Samuel MD
[2017-05-02] MEDS: VELTASSA PO SCH (17:32)
[2017-05-02] MEDS: LIPITOR PO SCH (21:44)
[2017-05-03] MEDS: NORCO-10 PO PRN ×2 (03:47→12:40)
[2017-05-03] MEDS: SYNTHROID PO SCH ×2 (05:22→07:51)
[2017-05-03 07:26] LABS: ALBUMIN 2.9 g/dL (3.5-5.0); CALCIUM 8.1 mg/dL (8.8-10.2); POTASSIUM 5.3 mmol/L (3.5-5.1)
[2017-05-03] MEDS: HUMULIN R SUBQ SCH ×2 (07:52→11:23)
[2017-05-03] MEDS: ASPIRIN PO SCH (08:34)
[2017-05-03] MEDS: PROTONIX PO SCH (08:34)
[2017-05-03] MEDS: BUSPAR PO SCH (08:34)
[2017-05-03] MEDS: APRESOLINE PO SCH ×2 (08:35→15:17)
[2017-05-03] MEDS: PLAVIX PO SCH (08:35)
[2017-05-03] MEDS: LASIX PO SCH (08:36)
[2017-05-03] MEDS: AMOXIL PO SCH (08:36)
[2017-05-03] MEDS: CATAPRES PO SCH ×2 (08:37→14:07)
[2017-05-03] MEDS: CARDIZEM CD PO SCH (08:37)
[2017-05-03] MEDS: LOPRESSOR PO SCH (08:38)
[2017-05-03] MEDS: LEVEMIR SUBQ SCH (08:38)
[2017-05-03] MEDS: ZOFRAN IV PRN (09:15)
--- NOTE | 2017-05-03 10:05 | PROGRESS NOTE ---
DATE: 05/03/2017 SUBJECTIVE: The patient is sitting up in bed, eating breakfast. She believes she is to go home later today. OBJECTIVE: Vital Signs: Temperature is 97.7 degrees, pulse 73, respiratory rate 19, blood pressure 103/64. Intake not measured. Output 1 L. PHYSICAL EXAMINATION: General: Middle-aged female resting in bed. No acute distress. She is awake, alert, oriented x4. HEENT: Normocephalic, atraumatic. ARTUR, conjunctivae pink. Neck Supple. Trachea midline. Cardiovascular: Regular rate and rhythm without gallop. Pulmonary: She is clear bilaterally. She has equal excursion and decreased breath sounds bilaterally noted secondary to body habitus. Abdomen: Obese, soft, positive bowel sounds. : She still has a Martinez catheter that has not been removed yet. Yellow urine noted. Extremities : 2+ pretibial edema, right greater than left. Erythema noted bilaterally. Integumentary: Some pustules noted bilateral lower extremities. Skin is warm and dry. LABORATORY DATA: WBC of 6.6, hemoglobin 9.7, sodium 135, potassium 5.3, CO2 of 21, creatinine 4.5, calcium 8.1. Phosphorus 5.6, albumin 2.9. ASSESSMENT AND PLAN: 1. Chronic kidney disease, stage 5. Continues with acceptable changes in her creatinine after restarting her Lasix. She has no indications for intervention at this time. We will continue to follow her as an outpatient. 2. Electrolytes, acid-base balance. 3. She was again dosed with lasix yesterday. Her potassium is acceptable and, as long it is less than 6, we would not automatically treat that. 4. Anemia. Continue to follow as an outpatient. Seen, data reviewed, discussed with Pushpa Rodriguez on 05/03/17. I agree with the above assessment and plan of care. rg Dictated by ALICE Lizarraga for Nba Navarrete MD cc: Nba Navarrete MD [facility]
[2017-05-03 13:46] VITALS: BP 97/58
[2017-05-03] MEDS: LOVENOX SUBQ SCH (13:53)
--- NOTE | 2017-05-03 16:19 | DISCHARGE SUMMARY ---
ADMISSION DATE: 04/24/2017 DISCHARGE DATE: 05/03/2017 CONSULTATIONS: 1. Dr. Adrianna Watson with Neurology. 2. Dr. Nba Navarrete with Nephrology. PERTINENT PROCEDURES: 1. Head CT showed a new small stroke in the left occipital lobe. At least 1-2 days old. 2. Echocardiogram showed an EF greater than 55%. No evidence of wall motion abnormalities. 3. Followup head CT. No change from prior. DISCHARGE DIAGNOSES: 1. Acute occipital infarct. Patient will continue on aspirin and Plavix. She will be discharged home with [facility] and physical therapy. 2. Epistaxis. Resolved. 3. Morbid obesity. Aware. Continue with diet education. 4. Hypertension. Controlled on home medications. 5. Anemia. Hemoglobin and hematocrit is stable. 6. Urinary tract infection secondary to Enterococcus faecalis. Continue on amoxicillin. 7. Chronic kidney disease. Stable. Will continue to follow up with Dr. Navarrete in 2 weeks. 8. Persistent hyperkalemia. The patient was placed on a low-potassium diet as well as treated with Veltassa and as per Nephrology, as long as her potassium was less than 6 , they are not going to automatically do treatment for that. Again the patient will follow up with Nephrology in 2 weeks. She will continue on 80 of Lasix b.i.d. 9. Diabetes mellitus. Continue home regimen. 10. Atrial fibrillation. Continue home medications. HOSPITAL COURSE: Lore Sheridan is a 57-year-old female well known to our service with a history of chronic kidney disease, diabetes mellitus type 2, COPD, CHF. She came to the ED where she had an episode of some slurred speech, left-sided weakness. By the time she got to the ED, her symptoms had resolved. She had a CT scan of the head done that showed a new small stroke in the left occipital lobe that was a least 1 to 2 days old. The patient was admitted for an acute stroke with a neurology consult. She was monitored on telemetry with neurological checks. Of note, she was unable to go for an MRI because she does exceed the weight limit. Also placed a consult for Cardiology for their opinion about anticoagulation for her atrial fibrillation. Also educated on long-term goal of tight glucose control as well as blood pressure control and exercise and diet changes. Cardiology recommended 81 mg of enteric-coated aspirin in addition to Plavix and follow up in their office in 6 weeks. Continue with her current hypertension medications as well as her statin. The patient's urine culture did grow out gram positive cocci. She was started on antibiotic. She was monitored by Nephrology. They felt she was at her historical baseline. They restarted her on her Lasix. She did have some hyperkalemia which she was given Veltassa for with an appropriate response. Again she will continue to be followed by Nephrology. Nephrology continued to dose the patient with Lasix. They felt that her potassium was acceptable. As long as it was less than 6, they were not automatically going to treat and from their standpoint, she has been appropriate for discharge. VITAL SIGNS: At the time of her discharge, temperature is 97.7 degrees, heart rate 58, respirations 20, blood pressure 119/67, O2 is 100% on 3 L nasal cannula. DISCHARGE DIET: Renal. DISCHARGE MEDICATIONS: 1. Amoxil 500 mg p.o. q.12 hours. 2. Aspirin 81 mg p.o. daily. 3. Lipitor 80 mg p.o. at bedtime. 4. Buspirone 5 mg p.o. b.i.d. 5. Catapres 0.1 mg p.o. t.i.d. 6. Plavix 75 mg p.o. daily. 7. Cardizem CD 120 mg p.o. daily. 8. Lasix 80 mg p.o. b.i.d. 9. Apresoline 25 mg p.o. t.i.d. 10. Monroe 10/325, 1 each p.o. q.6 hours p.r.n. 11. Levemir 55 units subcutaneously b.i.d. 12. Humalog 45 units subcu 4 times a day. 13. Prevacid 30 mg p.o. b.i.d. 14. Synthroid 88 mcg p.o. daily. 15. Lopressor 50 mg p.o. b.i.d. 16. Zoloft 50 mg p.o. daily. DISPOSITION: Ms. Sheridan is being discharged home with [facility] and physical therapy. She is to follow up with Dr. Navarrete in 2 weeks [address] as [address]. Curry in 6 weeks and her primary care physician in 1-2 weeks. The patient can return to the ED for any worsening of symptoms. She is to follow a renal diet as well as getting some exercise and to take all her medications as prescribed, to get a better tight control on her blood glucose as well as her high blood pressure. She is to look out for any signs of bleeding, as she has had rectal bleeding in the past. The patient can return to the ED for any worsening of symptoms. DISCHARGE TIME: Thirty minutes. Dictated by ALICE Romero for Delvin Samuel MD cc: MD Buddy Tesfaye MD pt examined, [facility] with [facility]
--- NOTE | 2017-05-04 19:24 | PROVIDER DOCUMENTATION ---
This chart was entered by Gerald Alcantar Scribe, acting as scribe for Louis Germain MD. HPI-Neurological Disorder - General Chief Complaint: Stroke-Like Symptoms Stated Complaint: stroke like symptoms Time Seen by Provider: 04/23/17 23:44 Source: patient, family Allergies/Adverse Reactions: Patient Allergies Allergy/AdvReac Type Severity Reaction Status Date / Time clindamycin Allergy Severe RASH Verified 12/21/16 14:03 meloxicam [From Mobic] Allergy Mild RASH Verified 12/21/16 14:03 vancomycin Allergy Mild RASH Verified 04/24/17 00:33 Home Medications: Home Medication List Medication Instructions Recorded Confirmed Last Taken Type ATORVAstatin [Lipitor] 80 mg PO QHS 09/08/15 04/24/17 12/20/16 20:00 History Furosemide 80 mg PO BID 09/08/15 04/24/17 12/21/16 08:00 History Clonidine [Catapres] 0.1 mg PO TID #90 09/21/15 04/24/17 12/21/16 08:00 Rx Buspirone HCl 5 mg PO BID 10/06/15 04/24/17 12/21/16 08:00 History Hydrocodone/Acetaminophen [[place]en[place] 1 each PO Q6H PRN PRN 11/12/16 04/24/17 08:00 History 10-325 Tablet] Metoprolol [Lopressor] 50 mg PO BID 11/12/16 04/24/17 12/21/16 08:00 History Levothyroxine [Synthroid] 88 microgm PO DAILY #60 tablet 11/24/16 04/24/1712/21 08:00 Rx Lansoprazole [Prevacid] 30 mg PO BID #60 capsule. 11/28/16 04/24/17 12/21/16 08:00 Rx Insulin Detemir [Levemir] 55 unit SUBQ BID@0800,2000 #0 12/24/16 04/24/1712/21 08:00 Rx Hydralazine [Apresoline] 25 mg PO TID@0900,1500,2100 04/24/17 04/24/17 Unknown History Insulin Lispro [Humalog] 45 units SQ 4XDAY 04/24/17 04/24/17 Unknown History Sertraline HCl 50 mg PO DAILY 04/24/17 04/24/17 Unknown History Amoxicillin [Amoxil] 500 mg PO Q12HR #13 capsule 05/03/17 Unknown Rx Aspirin 81 mg PO DAILY #30 chewtab 05/03/17 Unknown Rx Clopidogrel [Plavix] 75 mg PO DAILY #30 tablet 05/03/17 Unknown Rx Diltiazem C.d. [Cardizem Cd] 120 mg PO DAILY #30 capsule 05/03/17 Unknown Rx - History of Present Illness-Neuro Nature of Presenting Problem: Pt is a 56 yowf who presents to ER via EMS with CC of stroke like sxs. Pt reports that was at home when she developed sudden onset of left sided weakness , slurred speech, and confusion. Pt reports hx of strokes and also reports that she has been taken off of dialysis since January due to improvement of renal function. Severity: reports: moderate Onset/Duration: reports: just prior to arrival Timing: reports: improving Context: reports: other (stroke like sxs) Character of Altered Mental Status: reports: confused, trouble concentrating Any recent trauma/injury?: reports: none Character of Deficits: reports: impaired speech New weakness or altered sensation location:: reports: RACHELLE HENAO Cognitive Baseline: alert, oriented x3 Associated Symptoms: reports: decreased ability to walk or stand, confusion, slurred speech. denies: short of breath, headache, chest pain, neck/back pain, fatigue, fever/chills, loss of consciousness, numbness in legs/feet, paresthesia , tingling in legs/feet, vomiting, vision changes, weakness Similar Symptoms Previously?: Yes Recently seen or treated by another doctor?: Yes Review of Systems - Adult - REVIEW OF SYSTEMS - ADULT Constitutional: denies: chills, fever, fatique, night sweats, weight gain, weight loss Eyes: reports: no symptoms reported Ears, Nose, Mouth & Throat: reports: no symptoms reported Cardiovascular: reports: no symptoms reported Respiratory: reports: no symptoms reported Gastrointestinal: reports: no symptoms reported Genitourinary: reports: no symptoms reported Musculoskeletal: reports: no symptoms reported Integumentary: reports: no symptoms reported Neurological: reports: slurred speech, other (left sided weakness; confusion). denies: ataxia, dizziness/vertigo, headache/migraines, loss of balance, numbness , paresthesia, seizure, syncope, tremors Psychiatric: reports: no symptoms reported Endocrine: reports: no symptoms reported Hematologic/Lymphatic: reports: no symptoms reported Allergic/Immunologic: reports: no symptoms reported All Other Systems: Reviewed and Negative Past History - Adult - PAST MEDICAL HISTORY-ADULT Review of Records: reports: Nursing Assessment Review, Medications Reviewed Cardiovascular: reports: cardiac disease, A-Fib, CHF (last echo 04/12/15 showed EF of 55% but difficult due to patient size), HTN, hyperlipidemia, VT Respiratory: reports: COPD Genitourinary: reports: kidney disease (stage 4) Neurological: reports: CVA Psychiatric: reports: anxiety Endocrine/Immune: reports: Diabetes, thyroid disorder - PRIOR SURGERIES/PROCEDURES Surgical/Procedure History: reports: appendectomy, CABG, cholecystectomy, cardiac stent, hysterectomy, - IMMUNIZATION STATUS Childhood Immunizations: See Nurse Assessment Flu Vaccine: See Nurse Assessment - FAMILY HISTORY Family History: reviewed, not pertinent Physical Exam- Neurological - Physical Exam-Neuro Initial Vital Signs Reviewed: Yes General Appearance: appears well, alert, moderate distress, obese (morbidly) Eye Exam: bilateral eye: normal inspection, PERRL, EOMI Head Injury: no evidence of injury Neck: non-tender, full range of motion, supple. negative: limited range of motion, lymphadenopathy Respiratory: chest non-tender, lungs clear, normal breath sounds, no pleuratic chest pain, no respiratory distress, no accessory muscle use. negative: respiratory distress, decreased breath sounds, accessory muscle use, wheezing Cardiovascular: normal peripheral pulses, regular rate, rhythm. negative: bradycardia, tachycardia, irregularly irregular Abdominal Exam: normal bowel sounds, non tender, soft, no organomegaly, no pulsatile mass. negative: guarding, rebound, tenderness Extremity: erythema, inflammation (diabeticorum to anterior lower RLE), pedal edema, swelling. 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 negative: ecchymosis, laceration (s) Psych/Mental Status: normal thought content, normal thought process, oriented x 3, anxious. negative: normal mood/affect Progress - PLAN OF CARE/RESULTS Progress/Plan/Lab Results: Orders Category Date Time Status Admit - [facility] Routine AdmDCTranf 04/24/17 03:33 Ordered Activity - Strict Bedrest Q1D Care 04/24/17 03:33 Completed Apply Mechanical Device [QM] ORDERED Care 04/24/17 03:33 Active Aspiration Precautions DIRECTED Care 04/24/17 03:33 Active Cardiac Monitoring DIRECTED Care 04/23/17 22:44 Completed Elevate Head of Bed DIRECTED Care 04/24/17 03:33 Active FSBS/Accucheck Result AC + HS Care 04/24/17 03:33 Active Finger Stick Blood Sugar (ED) DIRECTED Care 04/23/17 22:44 Completed IV Insertion ORDERED Care 04/24/17 03:33 Completed Intake and Output-Strict ORDERED Care 04/24/17 03:33 Active Misc. NRSG Communication Order DIRECTED Care 04/23/17 22:44 Completed Neurological Check q4h Care 04/24/17 03:33 Active Nursing- MD Consult Request Care 04/24/17 03:33 Completed Oxygen Therapy- ED Nursing DIRECTED Care 04/23/17 22:44 Completed Saline Loc NOW Care 04/23/17 22:44 Completed Vital Signs Order Q 4-HR ASSESS Care 04/24/17 03:33 Active Z-Document. for Tele Applied ORDERED Care 04/24/17 03:33 Completed Social Service Consult Routine Cons 04/24/17 03:33 Active NPO Diet 04/24/17 Lunch Completed CHEST-1 VIEW [RAD] Stat Exams 04/23/17 22:44 Completed HEAD W/O CONTRAST [CT] Stat Exams 04/23/17 22:44 Completed BASIC METABOLIC PANEL [CHEM] Routine Lab 04/25/17 06:41 Completed CBC WITH DIFF [HEME] Routine Lab 04/25/17 06:41 Completed CBC WITH ELECTRONIC DIFF [HEME] Stat Lab 04/23/17 23:15 Completed COMPREHENSIVE METABOLIC PANEL [CHEM] Stat Lab 04/23/17 23:15 Completed LIPID PROFILE W/DIR LDL [LIPIDS] Routine Lab 04/25/17 06:41 Completed PROTIME WITH INR [COAG] Stat Lab 04/23/17 23:15 Completed PTT [COAG] Stat Lab 04/23/17 23:15 Completed TROPONIN T Stat Lab 04/23/17 23:15 Completed URINALYSIS W/POSS RFLX CULT-1 [URINALYSIS] Stat Lab 04/23/17 23:40 Completed URINE DRUG SCREEN Stat Lab 04/23/17 23:40 Completed URINE MANUAL MICROSCOPIC [URINALYSIS] Stat Lab 04/23/17 23:40 Completed ATORVAstatin [Lipitor] Med 04/24/17 21:00 Discontinued 80 mg PO QHS Aspirin Med 04/24/17 09:00 Discontinued 325 mg PO DAILY Buspirone [Buspar] Med 04/24/17 09:00 Discontinued 5 mg PO BID Clonidine [Catapres] Med 04/24/17 09:00 Discontinued 0.1 mg PO TID Furosemide [Lasix] Med 04/24/17 09:00 Discontinued 80 mg PO BID Hydralazine [Apresoline] Med 04/24/17 09:00 Discontinued 25 mg PO TID@0900,1500,2100 Hydrocodone/APAP 10 mg/325 mg [Wenona-10] Med 04/24/17 00:45 Discontinued 1 each PO NOW ONE Hydrocodone/APAP 10 mg/325 mg [Wenona-10] Med 04/24/17 03:33 Discontinued 1 each PO Q6H PRN PRN Insulin Detemir [Levemir] Med 04/24/17 08:00 Discontinued 55 unit SUBQ BID@0800,2000 Insulin Human Regular [Humulin R] Med 04/24/17 07:00 Discontinued See Protocol SUBQ 0700,1100,1600,2100 Levothyroxine [Synthroid] Med 04/24/17 07:00 Discontinued 88 microgm PO DAILY@0700 Metoprolol [Lopressor] Med 04/24/17 09:00 Discontinued 50 mg PO BID Ondansetron [Zofran] Med 04/24/17 03:33 Discontinued 4 mg IV Q4H PRN PRN Pantoprazole [Protonix] Med 04/24/17 09:00 Discontinued 40 mg PO BID Sertraline [Zoloft] Med 04/24/17 09:00 Discontinued 50 mg PO DAILY Oxygen Device Routine Oth 04/24/17 03:33 Completed EKG [EKG] Stat Ther 04/23/17 22:44 Draft Physical Therapy Eval/Treatment [OM.PT] Routine Ther 04/24/17 03:33 Active Speech Evaluation [OM.SPT] Routine Ther 04/24/17 03:33 Active Transfer/Admit Order [TRANSFER] Routine Transfer 04/24/17 01:30 Completed Result Diagrams: 05/02/17 07:15 08/01/17 06:32 - XRAY 1 XRAY: Bilateral XRAY Study: Chest Impression: See EMR Report - CT/MRI 1 CT Study: Head Impression: See EMR Report (Mild nonspecific periventricular deep white matter disease. Old ischemic event within the left occipital lobe - Dr. Whitney ( Radiologist)) CT Results: See report - CONSULTS/PCP/HOSPITALIST Notification #1 *Consult/PCP/Hospitalist*: Dr. eDlaney (Hospitalist) Time Discussed: 01:06 Consult Disposition: Admit Departure - Departure Date of Disposition Decision: 04/24/17 Time of Disposition Decision: 09:00 DIAGNOSIS: Cerebrovascular disease Disposition: ADMITTED INPATIENT 09 Certified Medical Emergency: Emergent Condition: Stable - Critical Care Note This patient required my direct & personal management of CC.: No Attestation - Physician/ VIKRAM Attestation The physician spent face to face time with patient:: Yes Advanced Practice Provider documentation review:: Supervising physician onsite and consulted in the evaluation and care of this patient. The physician did have a face to face encounter with the patient. This chart was documented by the indicated scribe, (Gerald Alcantar, Jayda) and accurately reflects the services I performed and decisions made by me, Louis Germain MD, as attested by the provider's signature.
--- NOTE | 2017-05-04 19:25 | ED EKG INTERP ---
This chart was entered by Gerald Alcantar Scribe, acting as scribe for Louis Germain MD. EKG Interpretation - EKG Time of EKG reading by physician:: 23:05 EKG Read and Signed by:: Louis Germain EKG Interpretation (*Must complete 3 of following elements*): Normal Rate: 97 Rhythm: Atrial fibrillation Attestation - Physician/ VIKRAM Attestation The physician spent face to face time with patient:: Yes Advanced Practice Provider documentation review:: Supervising physician onsite and consulted in the evaluation and care of this patient. The physician did have a face to face encounter with the patient. This chart was documented by the indicated scribe, (Gerald Alcantar Scribe) and accurately reflects the services I performed and decisions made by me, Louis Germain MD, as attested by the provider's signature.
== END 2017-05-03 17:59 | disposition home health service (06) ==
LOC: ED 22:41 → SUATTDRO 04-24 01:43 → 3N 04-24 01:43
PROVIDERS: ATTEND Internal Medicine

== ENCOUNTER 2017-05-18 09:50 | Inpatient (IN) ==
[2017-05-18] MEDS ORDERED: LASIX IV ONE ×2 (10:41→12:48)
[2017-05-18] MEDS ORDERED: NITROGLYCERIN TOP ONE (10:41)
[2017-05-18 11:13] LABS: MANUAL DIFF NEEDED? NO
--- NOTE | 2017-05-18 11:14 | EKG Report ---
Test Performed on : 05/18/2017 10:07:32 AM Test Reason : Chest Pain Blood Pressure : / mmHG Vent. Rate : 084 BPM Atrial Rate : 100 BPM P-R Int : 000 ms QRS Dur : 090 ms QT Int : 388 ms P-R-T Axes : 000 054 045 degrees QTc Int : 458 ms Atrial fibrillation. Abnormal ECG When compared with ECG of 30-APR-2017 20:49, Vent. rate has decreased BY 44 BPM Nonspecific T wave abnormality no longer evident in Lateral leads Unconfirmed Result
[2017-05-18 11:21] LABS: BASO% 0.5 % (0.0-0.8); EOS# 0.22 X1000 (0.0-0.7); EOS% 3.5 % (0.0-10.0); LYMPH# 1.15 X1000 (1.2-3.4); LYMPH% 18.1 % (20.5-51.1); MCH 26.6 PG (27-31); MCHC 31.4 g/dL (33-37); MCV 84.5 FL (81-99); MONO# 0.73 X1000 (0.11-0.59); MONO% 11.5 % (1.7-9.3); MPV 10.7 FL (7.4-10.4); NEUT% 66.4 % (42.2-75.2); PLT 297 X1000 (130-400); RBC 4.14 XMIL (4.2-5.4)
[2017-05-18 11:22] LABS: URINE CULTURE NEEDED? NO; URINE MICRO REVIEW NEEDED? NO; URINE SOURCE CATH
[2017-05-18 11:28] LABS: INR 0.99; PROTIME 10.4 Seconds (9.2-11.7); PTT 28.4 Seconds (22.0-36.0)
[2017-05-18 11:29] LABS: BILIRUBIN URINE NEGATIVE (NEGATIVE); BLOOD URINE TRACE (NEGATIVE); COLOR YELLOW; GLUCOSE URINE 500 mg/dL (NEGATIVE); LEUKOCYTES URINE NEGATIVE (NEGATIVE); NITRITE URINE NEGATIVE (NEGATIVE); PH URINE 6.5; PROTEIN URINE 600 mg/dL (NEGATIVE); SP GRAVITY URINE 1.011; TURBIDITY URINE CLEAR (CLEAR); UR EPITHELIAL CELLS <10 /HPF (<10); URINE BACTERIA NEGATIVE /HPF; URINE RBC <10 /HPF (<10); URINE WBC <10 /HPF (<10); UROBILINOGEN URINE NORMAL (NORMAL)
--- NOTE | 2017-05-18 11:35 | Diag Imaging Result Doc PS360 ---
EXAM: CHEST-1 VIEW INDICATION: SOB TECHNIQUE: One view COMPARISON: 05/02/2017 FINDINGS: Inspiration is suboptimal. There are increased interstitial markings in the perihilar regions and lung bases suggesting pulmonary venous congestion and mild edema. No pneumothorax or large effusion is appreciated. Cardiac silhouette is prominent but similar to the previous study. IMPRESSION: Suggestion of pulmonary venous congestion and mild interstitial edema. Electronically signed by Jamie Lenz 05/18/2017 11:32 AM
[2017-05-18 11:42] LABS: CALCIUM 7.8 mg/dL (8.8-10.2); MAGNESIUM 1.1 mg/dL (1.5-2.7); POTASSIUM 4.3 mmol/L (3.5-5.1); TOTAL BILIRUBIN 0.21 mg/dL (0.20-1.00); TOTAL PROTEIN 6.2 g/dL (6.3-8.3)
--- NOTE | 2017-05-18 13:29 | HISTORY AND PHYSICAL ---
She has been in the hospital fairly recently. In fact, she was discharged on 05/03/2017. This is a 57-year-old, morbid obesity, history of chronic kidney disease followed by Dr. Navarrete. I think for a time she had been on dialysis, not on dialysis at this time. Diabetes mellitus type 2. COPD, history of congestive heart failure. She has had episodes before where she is admitted with shortness of breath. But the last 3 or 4 days she has had increased work of breathing, increased dyspnea with exertion and then dyspnea at rest with an element of bronchospasm. She felt like she might have had some subjective fever and chills. She has recently lost her mother and has had a difficult time. PAST MEDICAL HISTORY: 1. Once again, chronic kidney disease. I think stage IV. Was on dialysis for awhile, for year and a half. Followed by Dr. Navarrete. Not on dialysis at this time. 2. Diabetes mellitus type 2. 3. COPD. 4. Congestive heart failure. PAST SURGICAL HISTORY: Hysterectomy, cholecystectomy, appendectomy. ALLERGIES: Mobic, vancomycin, clindamycin. SOCIAL HISTORY: Former smoker. Denies alcohol or illicit drugs. She uses a wheelchair mostly. FAMILY HISTORY: Positive for coronary artery disease. REVIEW OF SYSTEMS: In general no weight gain or loss. No fever or chills.HEENT: Unremarkable. Respiratory: As above. Cardiovascular: No chest pain or tachy palpitation. GI/: No complaints of gross hematuria, dysuria. Endocrinologic/hematologic: No significant history. PHYSICAL EXAMINATION: VITAL SIGNS: Temperature 97.9 degrees, pulse 73, respirations 20, blood pressure 169/105. HEENT: The pupils are equal round. CVP less than 6 cm. LUNGS: Clear but she has rales at the bases anterolateral. She has prolonged expiratory phase about 1.1-1 inspiratory phase. CARDIOVASCULAR: Distant heart sounds. PMI diffuse. ABDOMEN: Soft, nondistended. She has 2+ pitting edema both sides right worse than left. I should mention, as well she apparently has had a history of CVA with right sided partial paresis in the past. Looking back at her echocardiogram which was done on 04/24/2017 she had overall ventricular structures are poorly visualized. Does appear to have some evidence of moderate bilateral enlargement. Left atrial dimension was 5.7, and right atrial dimension is 4.7. Left ventricular systolic function, ejection fraction was greater than 55%. No wall evidence of wall motion abnormalities and the Doppler studies were poor quality. She had a chest x-ray done today, suggests pulmonary venous congestion, mild interstitial edema. EKG done today in the emergency room, EKG unremarkable except that she has atrial fibrillation. Rate is controlled. No ST-segment deviation. ASSESSMENT AND PLAN: 1. Pulmonary venous hypertension, increased work of breathing. Last echo suggested that she has good systolic function. She may indeed have some diastolic dysfunction and she may have elevated right-sided pressures. Suspicious for obstructive sleep apnea with her size and Pickwickian type syndrome and I think it may be beneficial to get Pulmonary involved as well as Cardiology. Note she is also in atrial fib so has loss of atrial kick. We will diurese her. Will watch her on the monitor. Look into if we can maybe do a better study or higher quality study and echo, decide whether cardioversion is something we need to consider down the road. 2. Atrial fibrillation. Not sure if this is chronic or new onset. 3. History of CVA with a right partial paresis. She is doing well from that standpoint. 4. She has chronic cellulitis, chronic venous stasis. Right leg with a chronic cellulitis type picture, granulomatous tissue on the anterior barone, swelling 2+ in both legs. It may respond to compression stockings as well as diuresis. 5. Chronic kidney disease. I think stage IV. Dr. Navarrete following. Review of lab: She has creatinine 3.2, proBNP was 72700. CURRENT MEDICATIONS: Her list of medications. Lipitor 80 mg at bedtime. Aspirin 81 mg a day. Buspirone 5 mg b.i.d. Catapres 0.1 mg t.i.d. Plavix 75 mg a day. Cardizem CD 120 mg a day. Furosemide 80 mg b.i.d. Apresoline 25 mg t.i.d. Hydrocodone 10/325 q.6 hours p.r.n. Levemir 55 units b.i.d. and Humalog 45 units 4 times a day. Prevacid 30 mg b.i.d. Synthroid 75 mcg daily. Lopressor 50 mg b.i.d., sertraline 50 mg daily. cc: Brad Delgado MD
--- NOTE | 2017-05-18 15:03 | Diag Imaging Result Doc PS360 ---
EXAM: LUNG SCAN / VQ HISTORY: SOB, Elevated D-Dimer TECHNIQUE: Ventilation/perfusion lung scan, 40.2 mCi technetium 99m DTPA aerosol for the ventilation portion, 5.7 mCi of technetium 99m MAA for the perfusion portion. Only the AP and posterior projections were performed due to the patient's large body habitus and the inability of the camera to rotate around the patient. COMMENT: There is no evidence of ventilation/perfusion mismatch. There is no definite evidence of perfusion defect. IMPRESSION: Normal study. Electronically signed by Junaid Jackson 05/18/2017 3:00 PM
[2017-05-18] MEDS ORDERED: TYLENOL PO PRN (16:56)
[2017-05-18] MEDS ORDERED: ZOFRAN IV PRN (16:56)
[2017-05-18] MEDS: HUMALOG SUBQ SCH ×2 (17:46→21:54)
[2017-05-18] MEDS: CATAPRES PO SCH ×2 (17:47)
[2017-05-18] MEDS: APRESOLINE PO SCH ×2 (17:47→21:37)
--- NOTE | 2017-05-18 18:21 | CONSULTATION ---
DATE OF CONSULTATION: 05/18/2017 REASON FOR ADMISSION: Fluid volume overload. REASON FOR CONSULTATION: Acute on chronic renal disease, assist with medical management, fluid volume overload. CONSULTING PHYSICIAN: Dr. Lang. HISTORY OF PRESENT ILLNESS: This is a 57-year-old female well known to our service for chronic kidney disease, stage 4 with a previous history of dialysis secondary to volume status, who has not had dialysis since January. She was recently in the hospital last night with similar symptoms and acute kidney injury. We saw her at that time. She did have some improvement with her volume status. She had also had some slurred speech and left-sided weakness noted. The patient states that her mother on the . Her was this past Tuesday. She states that since the day of her mother's , she has just had some worsening shortness of breath. She says this has gotten to the point that she simply could not breathe and so she was brought to the emergency room. She was given some IV Lasix and has begun diuresing. States that her breathing is already starting to improve. She did have a chest x-ray in the ER that indicated pulmonary vascular congestion and interstitial edema. She had a follow up VQ scan that was negative. In the ER, her creatinine was noted to be 3.2. This was actually close to her baseline. She did have a ProBNP of 13,600. Her urine had positive protein, positive glucose, trace blood and less than 10 WBC. She is being admitted to the hospital for further workup and treatment of her dyspnea and fluid volume status. PAST MEDICAL HISTORY: Chronic kidney disease. Previous hemodialysis for fluid volume control. Nephrotic syndrome. Chronic renal insufficiency. CKD 4. Diabetes type 2, COPD , CHF, chronic anemia, chronic atrial fibrillation. History of CVA, hypothyroidism, chronic urinary tract infections. PAST SURGICAL HISTORY: Hysterectomy, cholecystectomy, appendectomy. She has had a tunneled dialysis catheter previously with removal. ALLERGIES: Vancomycin, Mobic, clindamycin. HOME MEDICATIONS: Listed as per chart. SOCIAL HISTORY: She is . No ETOH, tobacco or illicit drug use currently. FAMILY HISTORY: Coronary artery disease in her father. REVIEW OF SYSTEMS: Shortness of breath, cough, some chest pain. Lower extremity edema. Decreased urine output. PHYSICAL EXAMINATION: Vital Signs: Temperature 97.9, pulse 88, respiratory rate 25, blood pressure 178/110. Intake and output have not been measured. She is being seen while she is in the emergency room. General: On exam, middle-aged female, resting in bed. She is in mild distress secondary to dyspnea. HEENT: Normocephalic, atraumatic. Conjunctivae pink. ARTUR. Oral mucosa moist. Neck: Supple. Unable to discern JVD secondary to body habitus. Cardiovascular: Regular rate and rhythm. No murmur or gallop. Pulmonary: She has audible wheezes noted from standing at the bedside. She has scattered wheezes bilaterally and rales. Decreased breath sounds noted. Abdomen: Morbidly obese, soft, positive bowel sounds. : Not inspected. She has a Martinez catheter with pale, clear yellow urine. Extremities: 2+ pretibial edema. Chronic venous stasis changes noted. Neuro: Grossly nonfocal. LAB DATA: WBC of 6.3, hemoglobin 11.0, platelet count of 297. Sodium 138, potassium 4.3, CO2 of 19, BUN 46, creatinine 3.2. Baseline creatinine 2.9-3.3. Calcium 7.1, magnesium 1.1, troponin 0.08. ProBNP 13,600. Albumin 3. Urinalysis was large protein, large glucose, trace blood. Negative for leukocytes. IMAGING: Chest x-ray with pulmonary vascular congestion and interstitial edema. VQ scan negative. ASSESSMENT AND PLAN: 1. Chronic kidney disease stage 4 with fluid volume overload. Her renal function is actually at her historical baseline. She has not had dialysis in over 4 months. There is no indication for intervention as she has had a nice response to IV Lasix, while she has been in the emergency room. We will check her labs again in the morning. 2. Electrolytes, acid-base balance. These are acceptable. 3. Anemia, stable. 4. Fluid volumes. Again she is being treated with IV Lasix and has had an appropriate response. We will check her intake and output in the morning. Dictated by ALICE Lizarraga for Nba Navarrete MD Data reviewed, discussed with Pushpa Rodriguez on 05/18/17. I agree with the above assessment and plan of care. cc: Nba Navarrete MD [facility]
[2017-05-18] MEDS ORDERED: LASIX IV SCH (21:00)
[2017-05-18] MEDS: LIPITOR PO SCH (21:36)
[2017-05-18] MEDS: BUSPAR PO SCH (21:36)
[2017-05-18] MEDS: LEVEMIR SUBQ SCH (21:37)
[2017-05-18] MEDS: LASIX 120 MG in NS 25 ML IV SCH (21:38)
[2017-05-18] MEDS: PREVACID SOLUTAB PO SCH (21:38)
[2017-05-18] MEDS: XANAX PO PRN (21:55)
[2017-05-18] MEDS: LOPRESSOR PO SCH (21:55)
[2017-05-19] MEDS: HUMALOG SUBQ SCH ×4 (06:13→20:43)
[2017-05-19 06:14] LABS: MANUAL DIFF NEEDED? NO
[2017-05-19 06:17] LABS: BASO% 0.2 % (0.0-0.8); HEMOGLOBIN 10.5 g/dL (12.0-16.0); LYMPH# 1.27 X1000 (1.2-3.4); LYMPH% 21.2 % (20.5-51.1); MCH 26.4 PG (27-31); MCHC 30.9 g/dL (33-37); MCV 85.4 FL (81-99); MONO% 8.3 % (1.7-9.3); MPV 10.4 FL (7.4-10.4); NEUT% 65.3 % (42.2-75.2); PLT 290 X1000 (130-400); RBC 3.98 XMIL (4.2-5.4)
[2017-05-19 06:38] LABS: CALCIUM 7.9 mg/dL (8.8-10.2); MAGNESIUM 1.2 mg/dL (1.5-2.7); POTASSIUM 4.3 mmol/L (3.5-5.1)
[2017-05-19] MEDS ORDERED: INSULIN PEN NEEDLES ONE (06:45)
--- NOTE | 2017-05-19 07:45 | EKG Report ---
Test Performed on : 05/19/2017 06:28:20 AM Test Reason : Heart Failure Admission Blood Pressure : / mmHG Vent. Rate : 065 BPM Atrial Rate : 312 BPM P-R Int : 000 ms QRS Dur : 090 ms QT Int : 438 ms P-R-T Axes : 000 052 078 degrees QTc Int : 455 ms Atrial fibrillation. Cannot rule out Anterior infarct , age undetermined Abnormal ECG When compared with ECG of 18-MAY-2017 10:07, (Unconfirmed) No significant change was found Confirmed by Porfirio Clarke DO ([id number]) on 05/21/2017 3:49:51 PM
[2017-05-19] MEDS ORDERED: LASIX IV SCH (09:00)
[2017-05-19] MEDS ORDERED: CARDIZEM CD PO SCH (09:00)
[2017-05-19] MEDS: APRESOLINE PO SCH ×3 (09:02→20:41)
[2017-05-19] MEDS: SYNTHROID PO SCH (09:02)
[2017-05-19] MEDS: ZOLOFT PO SCH (09:03)
[2017-05-19] MEDS: LEVEMIR SUBQ SCH ×2 (09:03→20:46)
[2017-05-19] MEDS: ASPIRIN PO SCH (09:04)
[2017-05-19] MEDS: BUSPAR PO SCH ×2 (09:04→20:41)
[2017-05-19] MEDS: PLAVIX PO SCH (09:04)
[2017-05-19] MEDS: PREVACID SOLUTAB PO SCH ×2 (09:04→20:40)
[2017-05-19] MEDS: LOPRESSOR PO SCH (09:04)
[2017-05-19] MEDS: CATAPRES PO SCH ×3 (09:04→17:55)
[2017-05-19] MEDS: LASIX 120 MG in NS 25 ML IV SCH (09:05)
--- NOTE | 2017-05-19 09:30 | PROGRESS NOTE ---
DATE: 05/19/2017 SUBJECTIVE: She is breathing better. Feels better. Feels like the swelling is down a little bit. OBJECTIVE: Vital signs: Temperature 97.6 degrees, pulse 65, respirations 20, blood pressure 159/86. Lungs: Clear anterolateral. Distant heart sounds. Regular rhythm and rate. Abdomen: Soft, nontender. Skin: Warm and dry. Extremities: She has 1+ pitting edema in the ankles to mid barone right side with chronic venous stasis dermatosis. Left skin is clear in the barone. REVIEW OF LAB: Unremarkable. Creatinine is 3.3. Blood sugar 188, 211, 201. ASSESSMENT AND PLAN: 1. Chronic kidney disease stage IV. Fluid volume overload. Function is actually historic baseline. She has not had dialysis in 4 months. No indication for intervention at this point. I have given her high-dose intravenous Lasix and is responding. 2. Electrolytes, acid-base. Balance looks good. 3. Anemia, stable. 4. Pickwickian obstructive apnea. She had a V/Q scan done yesterday which was normal study. We will continue present diuresis; I think she is getting 120 mg of Lasix intravenous every 12 hours. We will also work on decreasing her afterload. She is presently on Apresoline; will go up to 50 mg three times a day. cc: Brad Delgado MD
--- NOTE | 2017-05-19 10:43 | Diag Imaging Result Doc PS360 ---
EXAM: CHEST-2 VIEWS HISTORY: Heart Failure TECHNIQUE: PA and lateral chest COMMENT: There are sternotomy wires. There is blunting of the left costophrenic angle which may be due to pleural fluid. There may be mild interstitial pulmonary edema. The heart size is slightly enlarged. IMPRESSION: Minimal pulmonary edema and left pleural effusion. Electronically signed by Junaid Jackson 05/19/2017 10:41 AM
--- NOTE | 2017-05-19 11:42 | PROGRESS NOTE ---
DATE: 05/19/2017 SUBJECTIVE: She feels like her legs are better and her shortness of breath is improved. She states her symptoms developed after Tuesday when she had a for her mom. Progressively more shortness of breath, coughing, but no sputum production. No chills or fevers. OBJECTIVE: Vital Signs: Blood pressure 159/86, heart rate 65, respirations 20, afebrile. General: She is an obese, white female, lying at 30 degrees in no acute distress. Skin is warm and dry. Conjunctivae are pink. Neck veins are not visible. Heart is regular without murmurs or gallops. Lungs have equal breath sounds with a few scattered wheezes and rhonchi. Abdomen is obese and soft. Bowel sounds are present. There is pitting edema on the pannus. Extremities: Have 3+ edema. No clubbing or cyanosis. LABORATORY DATA: Sodium 141, potassium 4.3, chloride 106, bicarbonate 22, BUN 48 creatinine 3.3. Hemoglobin 10.5. IMPRESSION: 1. Chronic kidney disease, stage 4. BUN and creatinine are at her historical baseline. 2. Volume overload. Her exam does not seem significantly different from her last exam during her last admission. She is receiving IV Lasix drip at this time and so we will continue this treatment without change. 3. Electrolytes/acid base in target. 4. Anemia, in target. cc: Nba Navarrete MD
[2017-05-19] MEDS: NORCO-10 PO PRN (13:57)
[2017-05-19] MEDS ORDERED: MAGNESIUM SULFATE 4 GM/S.W.I. 4 GM/100 ML IVPB IV ONE (15:37)
[2017-05-19] MEDS ORDERED: ALBUMIN 25% IV ONE (15:38)
--- NOTE | 2017-05-19 17:46 | CONSULTATION ---
DATE OF CONSULTATION: 05/19/2017 CHIEF COMPLAINT: Dyspnea. CONSULTATION REQUESTED BY: Hospitalist service. REASON FOR CONSULTATION: Edema, swelling. HISTORY: Ms. Sheridan is a 57-year-old female who is known to our service. She presented for admission because for several days she has noted progressive swelling of the lower extremities, increasing dyspnea, wheezing. Upon presentation the patient was found to be edematous. Her chest x-ray showed pulmonary venous congestion, mild interstitial edema. The electrocardiogram showed her usual pattern of atrial fibrillation with no acute ST-T changes. Her initial blood work showed a pro-BNP of 13,603, subsequent 12,333. Magnesium was low at 1.1. BUN 48, creatinine 3.3, sodium 141, potassium 4.3. Hemoglobin 10.5. The patient has been given IV Lasix and she is doing somewhat better. PAST MEDICAL HISTORY: Positive for coronary artery disease. She has had previous heart cath in 2014, which revealed occlusion of LAD, she has a patent mammary artery graft to LAD and a stent to marginal, and a mid right coronary artery lesion 50-60%. The patient has stable angina pectoris pattern. The patient has chronic kidney disease. She has diabetes mellitus type 2. She has been diagnosed with persistent atrial fibrillation. She has pulmonary hypertension, dyslipidemia, hypothyroidism, obstructive sleep apnea. She has had a previous stroke. The patient has been found to have nephrotic syndrome, multiple determinations of proteinuria have indicated that her proteinuria ranges from 6-9 grams over 24 hours. In the past, we had to put her on dialysis to control the volume overload. Eventually dialysis was stopped because she still makes urine and her creatinine is not that high. She had an access for dialysis that had to be removed. PAST SURGICAL HISTORY: Hysterectomy, cholecystectomy, appendectomy, coronary bypass graft surgery including graft to LAD, , tonsillectomy. SOCIAL HISTORY: She is disabled. She lives at home. She has been a tobacco user. FAMILY HISTORY: Noncontributory. ALLERGIES: Mobic, vancomycin, clindamycin. HOME MEDICATIONS: Include the following: She has been taking metoprolol 50 twice a day, hydrocodone/acetaminophen 1 tablet every 6 hours, buspirone 5 mg twice a day, levothyroxine 75 mcg daily, pravastatin 80 twice a day, insulin Lispro 45 units 4 times a day, Levemir 55 units twice a day, hydralazine 25 three times a day, furosemide 80 mg twice a day, diltiazem 120 daily, clopidogrel 75 daily, clonidine 0.1 two times a day, aspirin 81 mg daily, atorvastatin 80 mg at bedtime, Sertraline 50 mg daily. REVIEW OF SYSTEMS: Chronically short of breath, obese, poor mobility, swelling of the legs. She has lesions on the legs that have been chronic, they are probably related to her residential diabetes mellitus. She has a well established diagnosis of nephrotic syndrome. PHYSICAL EXAMINATION: VITAL SIGNS: Blood pressure 152/72. Temperature 98.4. Pulse 71. Respirations 20. GENERAL: She is awake, alert, obese, in no distress, chronically ill. HEART: No jugular venous distention. CHEST: Diminished breath sounds with expiratory wheezing bilaterally. Heart sounds are irregularly, irregular, distant, no gallop or murmur. ABDOMEN: Obese, nontender. 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 Pulses are diminished. NEUROLOGIC: Moves all extremities. Follows commands. IMPRESSION: 1. Patient presents with increasing dyspnea and swelling. This is consistent with a state of fluid overload, probably a combination of chronic diastolic heart failure plus nephrotic syndrome, which she has well demonstrated before. 2. Chronic atrial fibrillation, rate controlled. 3. Coronary heart disease, status post coronary bypass surgery, stable coronary anatomy. 4. Morbidly obese. 5. Sleep apnea syndrome. 6. History of hypertension. 7. Hypomagnesemia. 8. Chronic kidney disease stage IV with full blown NEPHROTIC SYNDROME. RECOMMENDATION: We will replace magnesium, continue IV Lasix. We will change drawing press operator Cardizem to short acting Cardizem for better absorption. I am going to stop the beta blockers because of the active wheezing. She probably has chronic obstructive pulmonary disease. Further recommendations will be forthcoming. cc: Rashard Fernando MD [facility]
[2017-05-19] MEDS: XANAX PO PRN (17:55)
[2017-05-19] MEDS: LIPITOR PO SCH (20:41)
[2017-05-19] MEDS: CARDIZEM PO SCH (20:42)
[2017-05-20] MEDS ORDERED: HALL'S COUGH LOZENGE MT PRN (00:40)
[2017-05-20] MEDS: LASIX 120 MG in NS 25 ML IV SCH ×3 (01:19→20:46)
[2017-05-20] MEDS: CARDIZEM PO SCH ×4 (01:40→20:46)
[2017-05-20] MEDS: HUMALOG SUBQ SCH ×4 (05:59→20:52)
[2017-05-20 06:23] LABS: CALCIUM 7.7 mg/dL (8.8-10.2); MAGNESIUM 1.7 mg/dL (1.5-2.7); POTASSIUM 4.7 mmol/L (3.5-5.1)
--- NOTE | 2017-05-20 07:37 | EKG Report ---
Test Performed on : 05/20/2017 06:29:57 AM Test Reason : dyspnea Blood Pressure : / mmHG Vent. Rate : 063 BPM Atrial Rate : 072 BPM P-R Int : 000 ms QRS Dur : 090 ms QT Int : 434 ms P-R-T Axes : 000 056 058 degrees QTc Int : 444 ms Atrial fibrillation. with premature ventricular or aberrantly conducted complexes. Cannot rule out Anterior infarct (cited on or before 19-MAY-2017) Abnormal ECG When compared with ECG of 19-MAY-2017 06:28, (Unconfirmed) No significant change was found Confirmed by Porfirio Clarke DO ([id number]) on 05/22/2017 12:44:07 PM
[2017-05-20] MEDS: SYNTHROID PO SCH (09:25)
[2017-05-20] MEDS: LEVEMIR SUBQ SCH ×2 (09:25→20:47)
[2017-05-20] MEDS: ASPIRIN PO SCH (09:26)
[2017-05-20] MEDS: BUSPAR PO SCH ×2 (09:26→20:45)
[2017-05-20] MEDS: PLAVIX PO SCH (09:26)
[2017-05-20] MEDS: CATAPRES PO SCH ×3 (09:26→16:21)
[2017-05-20] MEDS: PREVACID SOLUTAB PO SCH ×2 (09:26→20:48)
[2017-05-20] MEDS: APRESOLINE PO SCH ×3 (09:27→20:45)
[2017-05-20] MEDS: ZOLOFT PO SCH (09:29)
[2017-05-20] MEDS: XANAX PO PRN (09:34)
--- NOTE | 2017-05-20 12:14 | PROGRESS NOTE ---
DATE: 05/20/2017 SUBJECTIVE: She states she is feeling better. Thinks her urine output is improved. Still short of breath. OBJECTIVE: Vital Signs: Blood pressure 124/61, heart rate 69, respirations 21, afebrile. General: She is in no acute distress. Skin: Warm and dry. Neck: Neck veins are not visible. Heart: Regular and distant. Lungs: Equal without crackles. Abdomen: Obese and soft. Bowel sounds are present. Extremities: Have 3+ edema. No clubbing or cyanosis. IMPRESSION: 1. Volume overload. Responding nicely to diuretic therapy. 2. Chronic kidney disease. No change in her BUN and creatinine in the context of diuretics. 3. Electrolytes/acid base/anemia, all in target. cc: Nba Navarrete MD
--- NOTE | 2017-05-20 15:26 | PROGRESS NOTE ---
DATE: 05/20/2017 SUBJECTIVE: Ms. Sheridan is sleeping comfortably, breathing comfortably, was easy to arouse. OBJECTIVE: Vital Signs: Temp 98.3 degrees, pulse 69, respirations 20, blood pressure 124/60. Lungs: Clear in all lung barnes. Cardiovascular exam: Regular rhythm and rate without murmur or S3. Abdomen: Soft. Skin: Warm and dry. : Urine output was 3600 mL. LAB: Labs from the seventeenth unremarkable. Chemistries looked good. Blood sugar is 273, 256 and 98. ASSESSMENT AND PLAN: 1. Volume overload responded well to diuretic therapy and improved. 2. Chronic kidney disease. Follow up with Dr. Navarrete. She has stage IV chronic kidney disease, but improving with her volume status with Lasix. 3. Electrolytes, acid-base looked good. Follow up on labs. Creatinine is 3.3. We will check another chest x-ray tomorrow. Looking over orders, I do not see any change. Blood sugars doing well. cc: Brad Delgado MD
[2017-05-20] MEDS: NORCO-10 PO PRN (19:59)
[2017-05-20] MEDS ORDERED: TUSSIONEX LIQUID PO ONE (20:31)
[2017-05-20] MEDS: LIPITOR PO SCH (20:45)
[2017-05-20] MEDS: ALBUTEROL NEB INH PRN ×2 (20:45→23:51)
[2017-05-21] MEDS: XANAX PO PRN ×2 (01:54→20:51)
[2017-05-21] MEDS: CARDIZEM PO SCH ×5 (01:54→20:52)
[2017-05-21] MEDS: ALBUTEROL NEB INH PRN ×3 (03:40→16:00)
[2017-05-21] MEDS: NORCO-10 PO PRN ×3 (05:32→18:12)
[2017-05-21] MEDS: HUMALOG SUBQ SCH ×5 (05:52→20:53)
[2017-05-21 06:23] LABS: MANUAL DIFF NEEDED? NO
[2017-05-21 06:30] LABS: BASO% 0.3 % (0.0-0.8); EOS# 0.21 X1000 (0.0-0.7); EOS% 3.7 % (0.0-10.0); HEMATOCRIT 32.9 % (37.0-47.0); HEMOGLOBIN 10.1 g/dL (12.0-16.0); IMM GRAN# 0.03 X1000 (0.0-0.04); IMM GRAN% 0.5 % (0.0-0.5); LYMPH# 1.14 X1000 (1.2-3.4); LYMPH% 19.9 % (20.5-51.1); MCH 26.6 PG (27-31); MCHC 30.7 g/dL (33-37); MCV 86.8 FL (81-99); MONO# 0.44 X1000 (0.11-0.59); MONO% 7.7 % (1.7-9.3); MPV 10.5 FL (7.4-10.4); NEUT% 67.9 % (42.2-75.2); PLT 252 X1000 (130-400); RBC 3.79 XMIL (4.2-5.4)
[2017-05-21 07:03] LABS: CALCIUM 7.6 mg/dL (8.8-10.2); POTASSIUM 4.5 mmol/L (3.5-5.1)
[2017-05-21] MEDS ORDERED: INSULIN PEN NEEDLES ONE (07:35)
--- NOTE | 2017-05-21 08:44 | Diag Imaging Result Doc PS360 ---
EXAM: CHEST-2 VIEWS INDICATION: pulmonary venous htn TECHNIQUE: 3 views COMPARISON: 05/19/2017 FINDINGS: Inspiration is suboptimal. There are increased central vascular markings suggesting pulmonary venous congestion and perhaps mild central interstitial edema, stable. No new consolidation is appreciated. There is stable cardiomegaly. Trace left effusion is essentially stable. IMPRESSION: Stable chest. Electronically signed by Jamie Lenz 05/21/2017 8:42 AM
[2017-05-21] MEDS: ZOLOFT PO SCH (08:52)
[2017-05-21] MEDS: PREVACID SOLUTAB PO SCH ×2 (08:53→20:52)
[2017-05-21] MEDS: ASPIRIN PO SCH (08:53)
[2017-05-21] MEDS: CATAPRES PO SCH ×3 (08:53→16:21)
[2017-05-21] MEDS: BUSPAR PO SCH ×2 (08:53→20:51)
[2017-05-21] MEDS: PLAVIX PO SCH (08:53)
[2017-05-21] MEDS: SYNTHROID PO SCH (08:54)
[2017-05-21] MEDS: APRESOLINE PO SCH ×3 (08:54→20:51)
[2017-05-21] MEDS: LASIX 120 MG in NS 25 ML IV SCH (08:54)
[2017-05-21] MEDS: LEVEMIR SUBQ SCH ×3 (08:54→20:52)
--- NOTE | 2017-05-21 10:36 | PROGRESS NOTE ---
DATE: 05/21/2017 SUBJECTIVE: Ms. Sheridan is breathing better, but still has cough and bronchial irritation, still having some wheezing. OBJECTIVE: Vital Signs: She remains afebrile with temp 98.0 degrees, pulse 61, respirations 20, blood pressure 135/73. Lungs: Prolonged expiratory phase with end-expiratory wheezing scattered throughout lung barnes. Cardiovascular: Regular rhythm and rate without murmur or S3. Abdomen: Soft. Skin: Warm and dry. : Urine output has been over 2 L. LABS AND X-RAYS: White count 5730, hematocrit 32, platelet count 252,000. Sodium 137, potassium 4.5, chloride 102, BUN 58, creatinine 3.9, blood sugars 280, 236, 279 and 243. Chest x-ray: Stable chest. Inspiration suboptimal. There is increased central vascular markings suggesting pulmonary venous congestion, perhaps mild central interstitial edema. No new consolidation. ASSESSMENT AND PLAN: 1. Volume overload. Responded to diuretic and this is improved. 2. Chronic kidney disease followed by Dr. Navarrete. She is stage IV, but she is responding to diuresis. 3. Electrolytes, acid-base stable. Serum creatinine 3.9. At present time she is getting Lasix 120 mg. I am going to try 200 mg of Lasix intravenous every 12 hours to see if that will help a little more. We will continue conservative management. cc: Brad Delgado MD
[2017-05-21] MEDS ORDERED: DILAUDID IV ONE ×2 (20:37→21:51)
[2017-05-21] MEDS: LIPITOR PO SCH (20:55)
[2017-05-21] MEDS: LASIX 200 MG in NS 25 ML IV SCH (21:11)
[2017-05-22] MEDS: NORCO-10 PO PRN ×3 (01:23→18:31)
[2017-05-22] MEDS: CARDIZEM PO SCH ×4 (02:44→22:52)
[2017-05-22] MEDS: ALBUTEROL NEB INH PRN ×3 (03:20→23:12)
[2017-05-22 06:25] LABS: MANUAL DIFF NEEDED? NO
[2017-05-22 06:26] LABS: BASO% 0.3 % (0.0-0.8); EOS# 0.32 X1000 (0.0-0.7); EOS% 4.7 % (0.0-10.0); HEMATOCRIT 32.9 % (37.0-47.0); IMM GRAN# 0.02 X1000 (0.0-0.04); IMM GRAN% 0.3 % (0.0-0.5); LYMPH# 1.23 X1000 (1.2-3.4); LYMPH% 17.9 % (20.5-51.1); MCH 26.6 PG (27-31); MCHC 30.4 g/dL (33-37); MCV 87.5 FL (81-99); MONO% 7.3 % (1.7-9.3); MPV 10.4 FL (7.4-10.4); NEUT% 69.5 % (42.2-75.2); PLT 282 X1000 (130-400); RBC 3.76 XMIL (4.2-5.4)
[2017-05-22] MEDS: HUMALOG SUBQ SCH ×4 (06:48→22:53)
[2017-05-22 06:51] LABS: CALCIUM 8.4 mg/dL (8.8-10.2); MAGNESIUM 1.6 mg/dL (1.5-2.7); POTASSIUM 4.4 mmol/L (3.5-5.1)
[2017-05-22 07:01] LABS: FREE T4 0.83 ng/dL (0.93-1.70)
[2017-05-22] MEDS: APRESOLINE PO SCH ×3 (09:16→22:51)
[2017-05-22] MEDS: PREVACID SOLUTAB PO SCH ×2 (09:16→22:51)
[2017-05-22] MEDS: CATAPRES PO SCH ×3 (09:16→17:39)
[2017-05-22] MEDS: ZOLOFT PO SCH (09:17)
[2017-05-22] MEDS: BUSPAR PO SCH ×2 (09:17→22:52)
[2017-05-22] MEDS: PLAVIX PO SCH (09:17)
[2017-05-22] MEDS: SYNTHROID PO SCH (09:17)
[2017-05-22] MEDS: ASPIRIN PO SCH (09:17)
[2017-05-22] MEDS: LEVEMIR SUBQ SCH ×2 (09:36→22:52)
[2017-05-22] MEDS: LASIX 200 MG in NS 25 ML IV SCH ×3 (09:37→22:51)
[2017-05-22] MEDS ORDERED: MAGNESIUM SULFATE 2 GM/S.W.I. 2 GM/50 ML IVPB IV ONE (10:00)
--- NOTE | 2017-05-22 10:25 | PROGRESS NOTE ---
DATE: 05/22/2017 SUBJECTIVE: She is complaining of severe cramping in her hands. She was crying. Cramping in her feet too. I am going to give her some magnesium. I am going to try and give her a dose of cyclobenzaprine to see if this will help. She had an EKG yesterday and this morning. No sign of ST-segment changes and really no evidence of coronary ischemia. PHYSICAL EXAMINATION: Vital Signs: Temperature 97.8 degrees, pulse 69, respirations 20, blood pressure 139/72. Lungs: Are clear in all lung barnes. Cardiovascular Examination: Regular rhythm and rate without murmur or S3. Abdomen: Soft. Skin: Is warm and dry. Is and Os: Urine output was 1700 mL. LAB: White count 6870, hematocrit was 32, platelet count 282,000. Sodium 136, potassium 4.4, chloride 102, bicarb 20, BUN 61, creatinine 4.1. We will give her some magnesium. We will give her 2 g of magnesium to see if this will help. ASSESSMENT AND PLAN: 1. Volume overload. Responded to diuretics. She is improving the volume status. Having a lot of cramping. 2. Chronic kidney disease. Followed by Dr. Navarrete. Stage IV. I am going to give her some magnesium, a 1 time dose intravenous. I will check again this afternoon. This is to help with her painful cramping. 3. Volume status, acid base appear to be acceptable. Her hematocrit is 32. Chest x-ray from yesterday showed stable chest. 4. Review of orders. I do not see any change. cc: Brad Delgado MD
[2017-05-22] MEDS: FLEXERIL PO PRN ×2 (11:05→22:55)
[2017-05-22 15:09] LABS: ALBUMIN 3.1 g/dL (3.5-5.0); CALCIUM 7.9 mg/dL (8.8-10.2); POTASSIUM 4.2 mmol/L (3.5-5.1); TOTAL BILIRUBIN 0.2 mg/dL (0.20-1.00); TOTAL PROTEIN 6.1 g/dL (6.3-8.3)
[2017-05-22] MEDS: LIPITOR PO SCH (22:51)
[2017-05-22] MEDS: XANAX PO PRN (22:55)
[2017-05-23] MEDS: CARDIZEM PO SCH ×4 (04:38→20:11)
[2017-05-23] MEDS: NORCO-10 PO PRN ×3 (04:38→17:44)
--- NOTE | 2017-05-23 06:32 | EKG Report ---
Test Performed on : 05/22/2017 06:33:44 AM Test Reason : dyspnea Blood Pressure : / mmHG Vent. Rate : 078 BPM Atrial Rate : 091 BPM P-R Int : 000 ms QRS Dur : 084 ms QT Int : 406 ms P-R-T Axes : 000 068 052 degrees QTc Int : 462 ms Atrial fibrillation. Abnormal ECG When compared with ECG of 21-MAY-2017 20:33, (Unconfirmed) No significant change was found Confirmed by Porfirio Clarke DO ([id number]) on 05/26/2017 7:58:09 AM
[2017-05-23] MEDS: HUMALOG SUBQ SCH ×4 (06:33→21:34)
--- NOTE | 2017-05-23 06:33 | EKG Report ---
Test Performed on : 05/22/2017 11:36:50 AM Test Reason : arm pains and foot pains Blood Pressure : / mmHG Vent. Rate : 080 BPM Atrial Rate : 227 BPM P-R Int : 000 ms QRS Dur : 090 ms QT Int : 412 ms P-R-T Axes : 000 072 033 degrees QTc Int : 475 ms Atrial fibrillation. Abnormal ECG When compared with ECG of 22-MAY-2017 06:33, (Unconfirmed) No significant change was found Confirmed by Porfirio Clarke DO ([id number]) on 05/26/2017 8:05:48 AM
[2017-05-23 07:05] LABS: ALBUMIN 3.2 g/dL (3.5-5.0); CALCIUM 8.4 mg/dL (8.8-10.2); POTASSIUM 4.9 mmol/L (3.5-5.1)
--- NOTE | 2017-05-23 07:20 | EKG Report ---
Test Performed on : 05/21/2017 06:27:00 AM Test Reason : dyspnea Blood Pressure : / mmHG Vent. Rate : 062 BPM Atrial Rate : 042 BPM P-R Int : 000 ms QRS Dur : 090 ms QT Int : 436 ms P-R-T Axes : 000 052 047 degrees QTc Int : 442 ms Atrial fibrillation. Low limb lead voltage Abnormal ECG When compared with ECG of 20-MAY-2017 06:29, (Unconfirmed) No significant change was found Confirmed by Porfirio Clarke DO ([id number]) on 05/23/2017 6:19:55 PM
--- NOTE | 2017-05-23 07:29 | EKG Report ---
Test Performed on : 05/21/2017 8:33:45 PM Test Reason : arm pain Blood Pressure : / mmHG Vent. Rate : 077 BPM Atrial Rate : 066 BPM P-R Int : 000 ms QRS Dur : 090 ms QT Int : 386 ms P-R-T Axes : 000 034 025 degrees QTc Int : 436 ms Atrial fibrillation. Abnormal ECG When compared with ECG of 21-MAY-2017 06:27, (Unconfirmed) Nonspecific T wave abnormality V5-V6 Confirmed by Porfirio Clarke DO ([id number]) on 05/23/2017 6:29:07 PM
[2017-05-23] MEDS: ALBUTEROL NEB INH PRN ×3 (08:00→15:27)
[2017-05-23] MEDS ORDERED: PNEUMOVAX 23 IM ONE (08:15)
[2017-05-23] MEDS ORDERED: LASIX IV SCH (09:00)
[2017-05-23] MEDS ORDERED: LASIX PO SCH (09:00)
[2017-05-23] MEDS: BUSPAR PO SCH ×2 (09:01→20:10)
[2017-05-23] MEDS: ZOLOFT PO SCH (09:02)
[2017-05-23] MEDS: ASPIRIN PO SCH (09:02)
[2017-05-23] MEDS: APRESOLINE PO SCH ×3 (09:02→20:09)
[2017-05-23] MEDS: CATAPRES PO SCH ×3 (09:02→17:44)
[2017-05-23] MEDS: PLAVIX PO SCH (09:02)
[2017-05-23] MEDS: SYNTHROID PO SCH (09:03)
[2017-05-23] MEDS: PREVACID SOLUTAB PO SCH ×2 (09:03→20:10)
[2017-05-23] MEDS: LEVEMIR SUBQ SCH ×2 (09:03→20:08)
[2017-05-23] MEDS: ZAROXOLYN PO SCH (10:33)
[2017-05-23] MEDS: LASIX 200 MG in NS 25 ML IV SCH ×2 (10:33→22:54)
--- NOTE | 2017-05-23 13:15 | PROGRESS NOTE ---
DATE: 05/23/2017 SUBJECTIVE: She is breathing much better. Still having cramping in her hands and legs. OBJECTIVE: Vital signs: Temperature 98.1 degrees, pulse 75, respirations 20, blood pressure 128/64. Lungs: Clear anterolateral, posterior. Cardiovascular: Regular rate without murmur or S3. Intake and output: Urine output is 1600 mL. LABS: Blood sugars 265, 156, 100. ASSESSMENT AND PLAN: 1. Volume overload, responded to diuretics, in the face of chronic kidney disease. She has improved. I am going to decrease her Lasix and changed to p.o. 80 mg twice a day. 2. Chronic kidney disease stage 4. Renal function appears to be adequate. 3. Electrolytes. She is complaining of cramping but electrolytes look pretty good. Hematocrit is stable at 32. Chemistries: Sodium 139, potassium 4.9, chloride 103, BUN 65, creatinine 4.2, magnesium was 1.6. I gave her some magnesium yesterday. Blood sugars look better. I think she is getting close to being able go home. We will take out her Martinez catheter, make sure she can void, and maybe go home. cc: Brad Delgado MD
--- NOTE | 2017-05-23 13:29 | PROGRESS NOTE ---
DATE: 05/23/2017 TIME SEEN: 0830. SUBJECTIVE: Ms. Sheridan is sitting on the side of the bed. Her legs are dependent. She is attempting to eat her breakfast. Her is at the bedside. She has no complaints of chest pain, though she does have increased work of breathing and she states that she has increased work of breathing with any type of exertion. OBJECTIVE: Her most recent vital signs are temperature 98.5, blood pressure 146 /64, heart rate 87, respirations 20. She is on 2 L nasal cannula. Last recorded saturation 93% . She has had 1400 in. She has had 1200 out. She is in a -3 L fluid balance over the last 5 days, though she remains in a positive fluid balance in the last 24-48 hours. LABS: Sodium 139, potassium 4.9, chloride 103, CO2 of 21, BUN 65, creatinine 4.2, glucose 136. Anion gap 15, calcium 8.4, phosphorus 4.9, albumin 3.2, magnesium 1.6. Previous hemoglobin 10 on the . PHYSICAL EXAM: General: This is a 57-year-old white female. She is resting quietly, sitting up on the side of the bed. Head of the bed is completely elevated. Legs are dependent. Skin: Warm and dry. HEENT: Normocephalic, atraumatic. Conjunctiva is pale pink. She has ARTUR. Mucous membranes are moist. Neck: Supple. Trachea midline. She has positive JVD. Cardiovascular: She is regular rate and rhythm. She is negative for murmur or gallop. Lungs : Essentially clear to auscultation anterior. She does have a congested cough. She remains on O2, equal excursion. Abdomen: Large, distended, positive bowel sounds. Nontender. Genitourinary: Not inspected. Adequate urine out, though she remains in a positive fluid balance today. Extremities: Patient has pitting edema up to her waist. Lower extremities have 2+ edema with chronic venous stasis evident. Neurological: She is alert and oriented x3. ASSESSMENT AND PLAN: 1. Fluid volume overload. Patient has responded to diuretic therapy of Lasix 200 mg q.12 hours IV. This has been changed to 80 mg p.o. this morning. We will change this back to Lasix 200 mg IV q.12 hours. We will add metolazone 10 mg p.o. to be given after her Lasix infusion to assist with her fluid volume. She is complaining of more increased work of breathing today. She remains on O2. We have discussed with the patient that if this does not support her fluid volume balance and her breathing has improved that it is indicated that we may need to place tunnel catheter for dialysis to assist with her fluid volume overload. Patient states understanding. 2. Chronic kidney disease stage 4 with context of fluid volume overload. Plan as above. rg 3. Electrolytes. These remain stable. 4. Acid-base balance. This remains stable. 5. Anemia. This remains low, but stable. I would to thank you for allowing us to follow with this patient. Dictated by ALICE Carrillo for Nba Navarrete MD Patient seen, data reviewed, discussed with Chio Linares on 05/23/17. I agree with the above assessment and plan of care. rg cc: ALICE Carrillo MD [facility]
[2017-05-23] MEDS ORDERED: INSULIN PEN NEEDLES ONE (16:55)
[2017-05-23] MEDS: LIPITOR PO SCH (20:11)
[2017-05-23] MEDS: FLEXERIL PO PRN (20:26)
[2017-05-24] MEDS: CARDIZEM PO SCH ×5 (00:43→21:10)
[2017-05-24] MEDS: NORCO-10 PO PRN ×2 (00:44→21:10)
[2017-05-24] MEDS ORDERED: NORCO-5 PO ONE (03:56)
[2017-05-24] MEDS: HUMALOG SUBQ SCH ×4 (06:12→21:11)
[2017-05-24 07:02] LABS: ALBUMIN 2.9 g/dL (3.5-5.0); CALCIUM 8.1 mg/dL (8.8-10.2)
[2017-05-24 07:24] LABS: POTASSIUM 5.7 mmol/L (3.5-5.1)
[2017-05-24] MEDS: ALBUTEROL NEB INH PRN ×3 (07:39→21:50)
[2017-05-24] MEDS: ASPIRIN PO SCH (08:28)
[2017-05-24] MEDS: BUSPAR PO SCH ×2 (08:28→21:10)
[2017-05-24] MEDS: LEVEMIR SUBQ SCH ×2 (08:28→21:18)
[2017-05-24] MEDS: SYNTHROID PO SCH (08:29)
[2017-05-24] MEDS: ZOLOFT PO SCH (08:29)
[2017-05-24] MEDS: PLAVIX PO SCH (08:29)
[2017-05-24] MEDS: ZAROXOLYN PO SCH (08:29)
[2017-05-24] MEDS: APRESOLINE PO SCH ×3 (08:29→21:11)
[2017-05-24] MEDS: CATAPRES PO SCH ×3 (08:29→16:47)
[2017-05-24] MEDS: PREVACID SOLUTAB PO SCH ×2 (08:30→21:11)
[2017-05-24] MEDS: LASIX 200 MG in NS 25 ML IV SCH ×2 (10:10→21:12)
[2017-05-24] MEDS ORDERED: KEFZOL 1 GM/D5W 1 GM/50 ML IVPB IV ONE (11:20)
--- NOTE | 2017-05-24 13:32 | PROGRESS NOTE ---
DATE: 05/24/2017 TIME SEEN: 0735 hours. SUBJECTIVE: Ms. Sheridan is resting quietly in bed. Her head of the bed is elevated at 90 degrees. She is currently receiving a breathing treatment secondary to increased work of breathing during the night. Patient says she has been struggling to get her breath. It appears that she has put greater than 2 L out, although she is negative 1.6 L in the last 24 hours. OBJECTIVE: Vital Signs: Her most recent vital signs are temperature 98.4 degrees, blood pressure 162/77, heart rate 96, respirations are 18. She remains on 2 L nasal cannula. Last recorded saturation 95%. She has had 825 in; she has had 2450 out per Martinez catheter. LABORATORY DATA: Sodium 141, potassium 5.7, chloride 104, CO2 21, BUN 68, creatinine 4.3, glucose 151. Her anion gap is 16, calcium 8.1, phosphorus 5.8, albumin 2.9. Previous hemoglobin of 10 on the twentieth. PHYSICAL EXAM: General: This is a 57-year-old white female. She is resting in bed. She is in moderate distress secondary to increased work of breathing. She is currently receiving a breathing treatment at this time. Head of the bed is elevated. Skin: Warm and dry. HEENT: Normocephalic, atraumatic. Conjunctivae pale. She has ARTUR. Mucous membranes are dry. Neck: Supple. Trachea midline. She has positive JVD. Cardiovascular: Irregular rate and rhythm. She has a soft heart sound. No murmur or gallop appreciated. Lungs: Essentially clear to auscultation anteriorly. Difficult to hear posterior. She remains on O2. Equal excursion. Abdomen: Large, distended. Positive bowel sounds. Hypoactive in nature. Genitourinary: Martinez catheter is in place. She has adequate urine out in response to large doses of IV Lasix 200 mg q. 12 hours followed by metolazone, although she has had a minimal response. She remains in increased work of breathing. Extremities: The patient continues with pitting edema up into her waist 2+. She continues to have chronic venous stasis with evidence of different stages of healing. Neurological: She remains alert and oriented x3. ASSESSMENT AND PLAN: 1. Fluid volume overload. Patient has received heavy doses of diuretics with minimal response. She remains short of breath with increased work of breathing. Head of the bed is elevated. She is currently receiving a breathing treatment. We have discussed with patient yesterday in regards with possibly starting hemodialysis to assist with her fluid volume overload. Patient is in agreement for us to go ahead and consult [facility] for placement of tunnel catheter to assist with dialysis. We have placed a consult for Dr. Daniels and have made the patient nothing by mouth. 2. Chronic kidney disease stage IV. Patient's BUN and creatinine are elevated as noted with above. Plan for tunnel catheter placement and starting for dialysis. 3. Electrolytes and acid-base balance. These do remain stable with mild hyperkalemia. 4. Anemia. This remains stable. I would like to thank you for allowing us to follow with this patient. Dictated by ALICE Carrillo for Nba Navarrete MD Patient seen, data reviewed, discussed with Chio Linares on 05/24/17. I agree with the above assessment and plan of care. cc: ALICE Carrillo MD [facility]
--- NOTE | 2017-05-24 15:23 | PROGRESS NOTE ---
DATE: 05/24/2017 Today Ms. Sheridan refers to continuing having a lot of fluid on board and some shortness of breath. OBJECTIVE: Vital signs: Blood pressure is 143/59, pulse of 134, respirations 16, temperature 98.4 degrees. Patient is saturating 92%. General: Ms. Sheridan is a 57-year- old morbidly obese, female. She is in bed. She did not seem to be in any remarkable distress. Mucosa is pink and moist. Anicteric. Acyanotic. Neck: Supple. Chest: Air entry is bilaterally reduced. There is diffuse bilateral posterior crepitations and a few expiratory wheezing. Cardiovascular: Regular rate and rhythm. She did not appreciate any murmur. The patient has an old sternotomy scar. Abdomen: Soft, distended but nontender. Bowel sounds are present. Extremities: About 3+ pedal edema. The right lower extremity does have a little bit of hyperemic changes on the barone which is chronic. The patient I's and O's, 2450 urine output has been documented. The patient has a negative balance of 5403. LABORATORY DATA: Sodium is 141, potassium is 5.7, chloride is 104, bicarb is 21 , BUN is 68, creatinine is 4.3. A chest x-ray on the shows stable cardiomegaly and trace left effusion, increased central vascular markings consistent with pulmonary venous congestion. ASSESSMENT: 1. Fluid overload. 2. CKD stage IV. 3. Diastolic heart failure. 4. Morbid obesity with BMI of 64.3. 5. Pulmonary edema likely secondary to diastolic heart failure/renal disease. PLAN: Ms. Sheridan is making adequate urine. However she now seems to be having compromise of the kidney functions by the diuretic therapy. She is still a lot fluid overload and I think she would benefit eventually from ultrafiltration through dialysis. There is a plan to have a dialysis catheter placed today by surgery. cc: Jason Rojas MD [facility]
[2017-05-24] MEDS: XANAX PO PRN (21:10)
[2017-05-24] MEDS: LIPITOR PO SCH (21:19)
[2017-05-25] MEDS: ALBUTEROL NEB INH PRN ×5 (03:24→23:05)
--- NOTE | 2017-05-25 03:39 | CONSULTATION ---
DATE OF CONSULTATION: 05/24/2017 REASON FOR CONSULTATION: Volume overload and progressive kidney disease, with a need for dialysis. HISTORY OF PRESENT ILLNESS: This is a 57-year-old female with known chronic kidney disease, who has a history of dialysis through a tunneled dialysis catheter. However, she apparently made some improvement, and the catheter was removed. In the meantime, she has developed worsening shortness of breath and edema, this is failing diuretics. I have been asked to place a tunneled dialysis catheter. PAST MEDICAL HISTORY: Chronic kidney disease, nephrotic syndrome, diabetes type 2, COPD, CHF, chronic anemia, atrial fibrillation, history of stroke, hypothyroidism, chronic UTIs. PAST SURGICAL HISTORY: Hysterectomy, cholecystectomy, appendectomy, tunnelled dialysis catheter, multiple AV fistula or graft attempts in the left arm, which have failed. ALLERGIES: Vancomycin, Mobic, and clindamycin. SOCIAL HISTORY: She is . No tobacco, alcohol, or illicit drug use. FAMILY HISTORY: Coronary artery disease in the father. CURRENT MEDICATIONS: Albuterol, Xanax, aspirin, Lipitor, BuSpar, Catapres, Plavix, Flexeril, Cardizem, furosemide, Apresoline, Levemir, Humalog, Prevacid, Synthroid, Zaroxolyn, Zoloft. REVIEW OF SYSTEMS: Positive for shortness of breath and swelling, also cough and chest pain and decreased urine output. Otherwise, 10 systems reviewed and negative, except as noted above. PHYSICAL EXAMINATION: Vital Signs: Temperature 98 degrees, pulse 86, respirations 22, blood pressure 156/63, O2 saturation 94%. General: This is a frail sickly-appearing female who looks older than her stated age. HEENT: Normocephalic, atraumatic. Extraocular muscles intact. Pupils equal, round, reactive to light. Sclerae anicteric. Neck: Supple. No thyromegaly. Cardiovascular: Regular rate and rhythm. Respiratory: Bilateral equal breath sounds. No work of breathing. Gastrointestinal: Superobese, nontender, and nondistended. No obvious organomegaly, mass, or hernia. Extremities: She does have edema in all extremities. Skin: Warm and dry. No rash. Musculoskeletal: Moves all extremities weakly, but equally. LABORATORY STUDIES: White blood cell count 6.8, hemoglobin 10, platelet count 282,000. Sodium 141, potassium 5.7, chloride 104, CO2 21, BUN 68, creatinine 4.3, glucose 151. ASSESSMENT AND PLAN: A 57-year-old female with volume overload and progressive kidney disease. We are planning a tunneled dialysis catheter tomorrow. I discussed the risks, benefits, and alternatives with her, including bleeding, infection, catheter malfunction, pneumothorax, and other imponderables. She understands and agrees to proceed. cc: Justo Daniels MD
[2017-05-25] MEDS: CARDIZEM PO SCH ×4 (04:18→21:23)
[2017-05-25] MEDS: HUMALOG SUBQ SCH ×4 (06:04→21:25)
[2017-05-25] MEDS ORDERED: NS 250 ML ONE (06:12)
[2017-05-25] MEDS ORDERED: XYLOCAINE 1%/EPI 1:100,000 ONE (06:12)
[2017-05-25] MEDS ORDERED: ZOFRAN ONE (06:32)
[2017-05-25] MEDS ORDERED: ROBINUL ONE (06:32)
[2017-05-25] MEDS ORDERED: XYLOCAINE-MPF 2% ONE ×2 (06:32→07:18)
[2017-05-25] MEDS ORDERED: NEO-SYNEPHRINE ONE (06:32)
[2017-05-25] MEDS ORDERED: SODIUM CHLORIDE 0.9% 20 ML ONE (06:32)
[2017-05-25] MEDS ORDERED: DIPRIVAN 1% ONE (06:32)
[2017-05-25] MEDS ORDERED: FENTANYL ONE (06:33)
[2017-05-25] MEDS ORDERED: KEFZOL 1 GM/D5W 1 GM/50 ML IVPB ONE (06:36)
[2017-05-25] MEDS ORDERED: PEPCID ONE (06:45)
[2017-05-25] MEDS ORDERED: HEPARIN ONE (06:57)
[2017-05-25] MEDS ORDERED: NS 2,000 ML ONE ×2 (06:58→10:49)
[2017-05-25 07:03] LABS: ALBUMIN 2.8 g/dL (3.5-5.0); CALCIUM 8.5 mg/dL (8.8-10.2); POTASSIUM 5.1 mmol/L (3.5-5.1)
[2017-05-25] MEDS ORDERED: TIGHT: 0.2 ML/HR MISC PRN (07:06)
[2017-05-25] MEDS ORDERED: HEPARIN IV PRN (07:06)
[2017-05-25] MEDS ORDERED: NS 2,000 ML MISC PRN (07:06)
[2017-05-25] MEDS ORDERED: QUELICIN (DOSE) ONE (07:18)
[2017-05-25] MEDS ORDERED: VENTOLIN HFA ONE (07:37)
--- NOTE | 2017-05-25 09:14 | Diag Imaging Result Doc PS360 ---
EXAM: CHEST-PORTABLE HISTORY: s/p tunneled cvl placement TECHNIQUE: Portable upright AP COMPARISON: 05/21/2017 FINDINGS: A left jugular catheter has been placed since the prior exam. Tips overlie the mid to distal superior vena cava. Sternal wires are present. The heart remains enlarged. Vascular distention is more pronounced than on the prior exam. No pleural effusions identified. IMPRESSION: 1.No postprocedural pneumothorax following placement of the left jugular line 2.Persistent cardiomegaly with worsening pulmonary edema Electronically signed by Alex Cyr 05/25/2017 9:11 AM
--- NOTE | 2017-05-25 09:19 | OPERATIVE NOTE ---
PROCEDURE DATE: 05/25/2017 PREOPERATIVE DIAGNOSES: 1. Chronic kidney disease. 2. Chronic heart failure. 3. Chronic obstructive pulmonary disease. 4. Diabetes. 5. Volume overload. POSTOPERATIVE DIAGNOSES: 1. Chronic kidney disease. 2. Chronic heart failure. 3. Chronic obstructive pulmonary disease. 4. Diabetes. 5. Volume overload. PROCEDURE: Insertion of tunneled central venous dialysis catheter with ultrasound and fluoroscopic guidance. SURGEON: Dr. Justo Daniels. ANESTHESIA: General. ESTIMATED BLOOD LOSS: 10 mL. COMPLICATIONS: None apparent. SPECIMENS: None. 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 However, it was compressible. Ultimately, the wire would not pass and I suspect she has occlusion of the right internal jugular vein proximally. The left internal jugular vein was widely patent and without thrombus. The fluoroscopic imaging confirmed proper placement of the wire to the right atrium followed by the catheter with the tip at the superior vena cava right atrial junction. TECHNIQUE: She was brought to the operating room and placed supine on the table. General anesthesia was induced. She was prepped and draped in the usual sterile fashion. 1% lidocaine was used to anesthetize the skin over the right internal jugular vein. A small incision was made with a knife. The ultrasound was used to find the internal jugular vein. It was compressible with some old nonocclusive thrombus that appeared to be chronic along the wall. I accessed this vein 3 separate times with a needle under ultrasound guidance, but the wire would not pass, angling the ultrasound probe to a more proximal area of the internal jugular vein on the right side. It appeared to show progressive thrombus and possible occlusion proximally. I aborted any further attempts on the right side. We then re-prepped and draped her left neck and chest. The left internal jugular vein showed no thrombus and was compressible and patent. I did the same thing by anesthetizing the skin and making a small incision and then accessed the vein with 1 stick under ultrasound guidance. The wire passed easily this time and was confirmed to be in the right atrium with fluoroscopy. I then sequentially dilated the tract and passed a sheath over the wire. The wire was removed. I made a counter incision below the right clavicle and tunneled the catheter subcutaneously from the lower incision out through the neck incision. I then passed the catheter down into the sheath. The sheath was removed. The tip of the catheter was found to be at the appropriate superior vena cava right atrial junction. The cuff was in a subcutaneous position between our 2 incisions of the neck and the chest. The ports aaron back blood easily and were flushed with saline. I then anchored the port to the skin with 2-0 nylon. The neck incision was closed with interrupted subcuticular 3-0 Polysorb. There were no apparent complications. She was awakened in stable condition and transferred to the recovery room. cc: Justo Daniels MD
[2017-05-25] MEDS: LASIX 200 MG in NS 25 ML IV SCH ×2 (10:56→21:22)
[2017-05-25] MEDS: PLAVIX PO SCH (11:03)
[2017-05-25] MEDS: SYNTHROID PO SCH (11:03)
[2017-05-25] MEDS: ZAROXOLYN PO SCH (11:03)
[2017-05-25] MEDS: ASPIRIN PO SCH (11:03)
[2017-05-25] MEDS: APRESOLINE PO SCH ×3 (11:04→21:23)
[2017-05-25] MEDS: BUSPAR PO SCH ×2 (11:04→21:23)
[2017-05-25] MEDS: PREVACID SOLUTAB PO SCH ×2 (11:04→21:24)
[2017-05-25] MEDS: CATAPRES PO SCH ×3 (11:04→16:41)
[2017-05-25] MEDS: ZOLOFT PO SCH (11:07)
[2017-05-25] MEDS: NORCO-10 PO PRN ×2 (16:07→21:39)
[2017-05-25] MEDS: LEVEMIR SUBQ SCH ×2 (16:30→21:22)
[2017-05-25] MEDS: FLEXERIL PO PRN (16:41)
--- NOTE | 2017-05-25 17:35 | PROGRESS NOTE ---
DATE: 05/25/2017 SUBJECTIVE: Today Ms. Sheridan referred to be doing fine. She went for a dialysis catheter and has been scheduled for hemodialysis which 3000 was actually pulled off. OBJECTIVE: Vital Signs: Stable. Blood pressure is 124/63, pulse is 70, respirations 18, temperature 98 degrees. General: Ms. Sheridan is a 57-year-old morbidly obese female. She is in bed, not in any remarkable distress. HEENT: Mucosa is pink and moist. Anicteric. Acyanotic. Neck: Supple. There is JVD. Chest: Air entry is bilaterally reduced. There are still a few crepitations in the lung bases with some expiratory wheezing. Cardiovascular: Regular rate and rhythm. Abdomen: Soft. Chest wall, there is an old sternotomy scar. Extremities: About 2+ pedal edema. LABORATORY DATA: Chemistry is reviewed. Creatinine is 4.4, bicarb is 20 which is getting slightly worse. ASSESSMENT: 1. Fluid overload. 2. Chronic kidney disease stage IV to V. 3. Diastolic heart failure. 4. Morbid obesity with body mass index of 64.3. 5. Pulmonary edema with increased work of breathing, likely secondary to diastolic heart failure and chronic kidney disease. PLAN: In general today, Ms. Sheridan is doing a little better. She had dialysis. We will continue with her regular medications. cc: Jason Rjoas MD
[2017-05-25] MEDS ORDERED: MORPHINE IV ONE (17:57)
--- NOTE | 2017-05-25 19:07 | PROGRESS NOTE ---
DATE: 05/25/2017 SUBJECTIVE: She is having her 2nd dialysis treatment. She is having some improvement in her symptoms. Less shortness of breath. OBJECTIVE: Vital Signs: Blood pressure 135/65, heart rate 81, respiration 22, afebrile. Intake 400 mL. Output 3.4 L. General: No acute distress. Skin: Warm and dry. Conjunctivae are pink. Neck: Neck veins are not visible. Oropharynx is dry. Heart: Regular and distant. Lungs: Have equal breath sounds. No crackles or wheezes. Abdomen: Obese and soft. Bowel sounds are present. Extremities: Have 4+ edema. No clubbing or cyanosis. LABORATORY DATA: Sodium 139, potassium 5.1, chloride 101, bicarbonate 20, BUN 71, creatinine 4.4, hemoglobin 10. IMPRESSION: 1. Stage 5 chronic kidney disease. Recently initiated dialysis. Repeat dialysis today with a 2 potassium bath, 3.5 hours duration, 4 to 5 L ultrafiltration. We will dialyze daily until volume status is improved. 2. Electrolytes/acid base in target as above. 3. Anemia. In target. We will check iron stores, B12 and folate. cc: Nba Navarrete MD
[2017-05-25] MEDS: PERIDEX MT SCH (21:22)
[2017-05-25] MEDS: LIPITOR PO SCH (21:23)
[2017-05-25] MEDS: XANAX PO PRN (21:25)
[2017-05-25] MEDS ORDERED: DILAUDID IV ONE (23:24)
[2017-05-26] MEDS: FLEXERIL PO PRN (00:05)
[2017-05-26] MEDS: NORCO-10 PO PRN ×3 (03:04→21:11)
[2017-05-26] MEDS: CARDIZEM PO SCH ×4 (03:04→21:13)
[2017-05-26] MEDS: ALBUTEROL NEB INH PRN ×4 (03:55→23:06)
[2017-05-26] MEDS ORDERED: NS 2,000 ML MISC PRN (06:26)
[2017-05-26] MEDS ORDERED: TIGHT: 0.2 ML/HR MISC PRN (06:26)
[2017-05-26] MEDS ORDERED: HEPARIN IV PRN (06:26)
[2017-05-26] MEDS: HUMALOG SUBQ SCH ×4 (06:39→21:19)
[2017-05-26 06:48] LABS: IRON SATURATION 28 %; TIBC 197 ug/dL; TOTAL IRON 55 ug/dL (49-151); UNBOUND IRON 142 ug/dL (112-346)
[2017-05-26 06:52] LABS: CALCIUM 8.6 mg/dL (8.8-10.2); POTASSIUM 4.9 mmol/L (3.5-5.1)
[2017-05-26] MEDS ORDERED: HEPARIN ONE (07:03)
[2017-05-26] MEDS ORDERED: NS 2,000 ML ONE (07:03)
[2017-05-26 07:13] LABS: FERRITIN 556 ng/mL (13-150)
[2017-05-26] MEDS: DILAUDID IV PRN ×3 (08:53→21:22)
[2017-05-26 11:22] LABS: HEPATITIS PROFILE ACUTE SEE COMMENTS
--- NOTE | 2017-05-26 13:27 | PROGRESS NOTE ---
DATE: 05/26/2017 SUBJECTIVE: She had her 1st dialysis treatment yesterday. She is feeling some better but still short of breath. No nausea or vomiting. OBJECTIVE: Vital Signs: Blood pressure 157/70, heart rate 94, respiration 18, afebrile. Intake 900 mL. Output 4.3 L. General: No acute distress. Skin: Warm and dry. HEENT: Conjunctivae are pink. Neck: Neck veins are not visible. Heart: Regular and distant. Lungs: Equal and clear. Abdomen: Soft, obese, nontender. Bowel sounds present. Extremities: Have 3+ edema extending up onto the abdominal wall. LABORATORY DATA: Sodium 136, potassium 4.9, chloride 99, bicarbonate 23, BUN 60, creatinine 4.5, hemoglobin 10.0. IMPRESSION: 1. End-stage kidney disease with volume overload. Daily dialysis. 2. Electrolytes/acid base in target. 3. Anemia. Hemoglobin is trending downward. We checked iron studies yesterday and I will dose with IV Venofer today. 4. Pain management. Will provide p.r.n. Dilaudid. cc: Nba Navarrete MD
[2017-05-26] MEDS ORDERED: INSULIN PEN NEEDLES ONE (13:52)
[2017-05-26] MEDS: PERIDEX MT SCH ×2 (13:54→21:13)
[2017-05-26] MEDS: BUSPAR PO SCH ×2 (13:54→21:22)
[2017-05-26] MEDS: ZOLOFT PO SCH (13:55)
[2017-05-26] MEDS: PLAVIX PO SCH (13:55)
[2017-05-26] MEDS: CATAPRES PO SCH ×3 (13:55→21:22)
[2017-05-26] MEDS: SYNTHROID PO SCH (13:55)
[2017-05-26] MEDS: LEVEMIR SUBQ SCH ×2 (13:56→21:20)
[2017-05-26] MEDS: ASPIRIN PO SCH (13:56)
[2017-05-26] MEDS: APRESOLINE PO SCH ×4 (13:56→21:12)
[2017-05-26] MEDS: PREVACID SOLUTAB PO SCH ×2 (13:57→21:13)
--- NOTE | 2017-05-26 14:29 | PROGRESS NOTE ---
DATE: 05/26/2017 SUBJECTIVE: Today, Ms. Sheridan refers to be hurting all over, especially on the upper part of her body. OBJECTIVE: Vital signs: Blood pressure is 157/70, pulse of 94, respirations 18 , temperature is 98.3 degrees. General: Ms. Sheridan is a 57-year-old, morbidly-obese, female. She is in bed, not seemingly distressed. HEENT: Mucosa is pink and moist. Anicteric. Acyanotic. Neck: Supple. Chest: Air entry is bilaterally reduced. I did not appreciate any crepitations, just a few expiratory wheezes. Cardiovascular: Regular rate and rhythm. Abdomen: Soft. It is distended, but nontender. Extremities: About 2+ pedal edema. Central nervous system: Patient is awake alert oriented x4. There is no focal neurological deficit. Musculoskeletal: The patient has an old sternotomy scar on the anterior chest wall. LABORATORY DATA: Reviewed, consistent with CKD stage 4 to 5. ASSESSMENT: 1. Fluid overload. The patient had dialysis yesterday, 3 L were removed. There is a plan to dialyze her tomorrow as well. 2. Chronic kidney disease, stage 4 to 5. 3. Diastolic heart failure. 4. Morbid obesity, with a body mass index of 64.3. 5. Pulmonary edema, with increased work of breathing, likely secondary to diastolic heart failure and chronic kidney disease. This seems to have improved slightly with dialysis. The patient also has good urine output, with a urine output of 1300, accumulative negative balance of 13,838. 6. Anemia of chronic kidney disease. Ferritin is above 556, which looks pretty adequate for EPO to be given; however, we will defer that recommendation to our assembler trim on board. 7. History of coronary artery disease. 8. Diabetes mellitus, on insulin. 9. Generalized pain to the upper part of the of the chest wall, secondary to the procedure done yesterday. I think this is all musculoskeletal. The patient has been scheduled p.rari Vee by our Nephrology colleagues. cc: Jason Rojas MD [facility]
[2017-05-26] MEDS: LIPITOR PO SCH (21:13)
[2017-05-27] MEDS: CARDIZEM PO SCH ×4 (02:50→22:42)
[2017-05-27] MEDS: DILAUDID IV PRN ×4 (03:10→22:42)
[2017-05-27] MEDS: ALBUTEROL NEB INH PRN ×5 (03:13→23:15)
[2017-05-27 06:03] LABS: ALBUMIN 3.2 g/dL (3.5-5.0); CALCIUM 8.2 mg/dL (8.8-10.2); POTASSIUM 4.7 mmol/L (3.5-5.1)
[2017-05-27] MEDS: HUMALOG SUBQ SCH ×4 (06:31→22:43)
[2017-05-27] MEDS ORDERED: NS 2,000 ML MISC PRN (06:54)
[2017-05-27] MEDS ORDERED: HEPARIN IV PRN (06:54)
[2017-05-27] MEDS ORDERED: TIGHT: 0.2 ML/HR MISC PRN (06:54)
--- NOTE | 2017-05-27 08:12 | Extremity Venous Study ---
PROCEDURE NAME: Venous U/S Bilateral Legs - 05/19/2017 COMPLAINT EVALUATION OFFICER: Shadi Juarez RVT. REFERRED BY: Hospitalist. INDICATIONS: Erythema, redness, ICD-10 L53.9. FINDINGS: This is a limited study secondary to the patient's weight of 420 pounds. FINDINGS: She had evidence of venous insufficiency bilaterally. Her right common femoral vein and its branches, the deep and superficial femoral veins had no evidence of thrombus. These veins were compressible. The right popliteal vein was compressible. The deep veins below the right knee were imaged in a limited manner, but there was no evidence of thrombus. The left common femoral vein and its branches, deep and superficial femoral veins were it were again imaged without evidence of thrombus and were compressible. The left popliteal vein and the deep veins below the left knee showed no thrombus, superficial veins of the left lower extremity were compressible throughout their length. INTERPRETATION: It is a limited study secondary the patient's obesity, but no acute deep or superficial venous thrombosis of the bilateral lower extremities were noted. cc: MD Felisa Prasad CRNP
[2017-05-27] MEDS ORDERED: NS 2,000 ML ONE (08:13)
[2017-05-27] MEDS ORDERED: HEPARIN ONE (08:13)
[2017-05-27] MEDS ORDERED: EPOGEN SUBQ ONE (11:14)
--- NOTE | 2017-05-27 11:40 | PROGRESS NOTE ---
DATE: 05/27/2017 SUBJECTIVE: She states she is not doing well. She was informed that she had an abnormal venous study. No shortness of breath. Swelling is improving. OBJECTIVE: Vital Signs: Blood pressure 145/67, heart rate 79, respirations 14, afebrile. General: She is in no acute distress. Skin: Warm and dry. Eyes: Conjunctivae are pink. Neck: Neck veins are distended. Heart: Regular, distant. Lungs: Have equal breath sounds. No crackles. Abdomen: Soft, nontender. Bowel sounds present. Extremities: Have 3+ edema. No clubbing or cyanosis. LABORATORY DATA: Sodium 139, potassium 4.7, chloride 100, bicarbonate 26, BUN 49, creatinine 4.0, hemoglobin 10.0. IMPRESSION: 1. End-stage kidney disease with volume overload. Continue daily dialysis with ultrafiltration maximized as limited by her blood pressure. 2. Electrolytes/acid base/anemia, all within target. Will dose with erythropoietin. 3. Abnormal venous study. Further evaluation will likely need to await improvement in her volume status. cc: Nba Navarrete MD
[2017-05-27] MEDS: LEVEMIR SUBQ SCH ×2 (12:50→22:44)
[2017-05-27] MEDS: CATAPRES PO SCH ×3 (12:50→18:07)
[2017-05-27] MEDS: APRESOLINE PO SCH ×3 (12:51→22:42)
[2017-05-27] MEDS: ASPIRIN PO SCH (13:36)
[2017-05-27] MEDS: BUSPAR PO SCH ×2 (13:37→22:41)
[2017-05-27] MEDS: ZOLOFT PO SCH (13:38)
[2017-05-27] MEDS: SYNTHROID PO SCH (13:39)
[2017-05-27] MEDS: PREVACID SOLUTAB PO SCH ×2 (13:39→22:41)
[2017-05-27] MEDS: VENOFER 200 MG in NS 150 ML IV SCH (13:39)
[2017-05-27] MEDS: PLAVIX PO SCH (13:39)
[2017-05-27] MEDS: PERIDEX MT SCH ×2 (13:40→22:42)
--- NOTE | 2017-05-27 16:09 | PROGRESS NOTE ---
DATE: 05/27/2017 SUBJECTIVE: Today Ms. Sheridan referred to be fairly stable. Denies any complaints. OBJECTIVE: Vital signs: Blood pressure is 139/70, pulse of 89, respirations 19 and temperature is 98.8 degrees. General exam: Ms. Sheridan is a 57-year-old female, morbidly obese. She is in bed, does not seem to be in any distress. HEENT: Mucosa is pink and moist. Anicteric. Acyanotic. Neck: Supple. Chest: Air entry is bilaterally reduced. No crepitations. No rhonchi. Cardiovascular: Regular rate and rhythm. Abdomen: Soft, distended, but nontender. Extremities: 2+ pedal edema. MED SPA MANAGER: Patient is awake and alert and oriented x4. There is no focal neurological deficit. Skin: The patient has an old sternotomy scar on the anterior chest wall. From review of the operative note, there is a suspicion that she has an occluded right internal jugular vein proximally. ASSESSMENT: 1. Fluid overload. Patient is getting scheduled dialysis. She is also on diuretics, and she seems to be voiding very adequately. She had a urine output of 1300 yesterday and had 3000 of dialysis output yesterday and about 6000 removed today. 2. Chronic kidney disease stage IV to V. 3. Diastolic heart failure. 4. Morbid obesity with body mass index of 64.3. 5. Anemia of chronic kidney disease. Ferritin level 556. Patient is getting intravenous iron. 6. History of coronary artery disease, status post open heart surgery. 7. Diabetes mellitus on insulin regimen. 8. Generalized pain from surgery, improved. 9. Suspected sleep apnea with possible right heart failure. 10. Hypothyroidism. Will continue with levothyroxine. Condition is stable. 11. 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 From Dr. Daniels's note, it appears he tried to cannulize the right internal jugular 3 times and was unable. From his appreciation on ultrasound, it looks like the right internal jugular is completely occluded. cc: Jason Rojas MD
[2017-05-27] MEDS: LIPITOR PO SCH (22:41)
[2017-05-28] MEDS: DILAUDID IV PRN ×4 (03:03→23:32)
[2017-05-28] MEDS: ALBUTEROL NEB INH PRN ×3 (03:20→19:18)
[2017-05-28] MEDS: CARDIZEM PO SCH ×3 (05:57→18:04)
[2017-05-28] MEDS: HUMALOG SUBQ SCH ×4 (07:07→22:26)
[2017-05-28] MEDS: PERIDEX MT SCH ×2 (08:42→22:28)
[2017-05-28] MEDS: APRESOLINE PO SCH ×3 (08:43→22:28)
[2017-05-28] MEDS: ZOLOFT PO SCH (08:43)
[2017-05-28] MEDS: SYNTHROID PO SCH (08:43)
[2017-05-28] MEDS: PLAVIX PO SCH (08:43)
[2017-05-28] MEDS: CATAPRES PO SCH ×3 (08:44→18:04)
[2017-05-28] MEDS: PREVACID SOLUTAB PO SCH ×2 (08:44→22:27)
[2017-05-28] MEDS: BUSPAR PO SCH ×2 (08:45→22:27)
[2017-05-28] MEDS: ASPIRIN PO SCH (08:45)
[2017-05-28] MEDS: VENOFER 200 MG in NS 150 ML IV SCH (08:45)
[2017-05-28] MEDS: FLEXERIL PO PRN ×2 (08:45→18:04)
[2017-05-28] MEDS: LEVEMIR SUBQ SCH ×2 (08:46→22:23)
[2017-05-28] MEDS ORDERED: NS 2,000 ML MISC PRN (09:09)
[2017-05-28] MEDS ORDERED: TIGHT: 0.2 ML/HR MISC PRN (09:09)
[2017-05-28] MEDS ORDERED: HEPARIN IV PRN (09:09)
[2017-05-28] MEDS ORDERED: HEPARIN ONE (09:47)
[2017-05-28] MEDS ORDERED: NS 2,000 ML ONE (09:47)
--- NOTE | 2017-05-28 11:56 | PROGRESS NOTE ---
DATE: 05/28/2017 SUBJECTIVE: She states she has been out of bed in the room. Shortness of breath is minimal. She does have chest discomfort at the site of her catheter. OBJECTIVE: Vital Signs: Blood pressure 129/69, heart rate 98, respiration 18, afebrile. General: She is in no acute distress. Skin: Warm and dry. HEENT: Oropharynx is dry. Neck: Neck veins are not appreciated. Heart: Regular. No gallops. Lungs: Have equal breath sounds. No crackles. Abdomen: Soft, obese, nontender. Bowel sounds present. Extremities: 3+ edema extending on the abdominal wall but improved. LABORATORY DATA: Sodium 139, potassium 4.7, chloride 100, bicarbonate 26, BUN 49, creatinine 4.0, hemoglobin 10.0. IMPRESSION: 1. End-stage kidney disease with volume overload. Continue daily dialysis. 2. Electrolytes in target. 3. Acid base, in target. 4. Anemia in target. Continue erythropoietin. 5. Hypertension, acceptable. cc: Nba Navarrete MD
--- NOTE | 2017-05-28 14:29 | PROGRESS NOTE ---
DATE: 05/28/2017 This morning, Ms. Sheridan refers to be fairly stable. Continues to have some discomfort on the upper chest related to where the catheter was inserted. Otherwise the shortness of breath has improved. OBJECTIVE: Vital signs: Blood pressure is 129/69, pulse of 98, respirations 18, temperature 98.5 degrees. General: Ms. Sheridan is a 57-year-old female, morbidly obese. She is in bed, no seemingly distress. HEENT: Mucosa is pink and moist. Anicteric. Acyanotic. Neck: Supple. Chest: Good air entry bilateral. There are a few bibasilar crepitations. Cardiovascular: Regular rate and rhythm. No murmurs, no rubs, no gallops. Abdomen: Soft, nontender. Distended. Bowel sounds are present. Extremities: About 2+ pedal edema. PETROLEUM REFINERY OPERATOR: Patient is awake, alert and oriented. There is no focal neurological deficit. LABORATORY DATA: None for today. There are not any new imaging studies for today. I's and O's: Urine output is 1315. The patient has an accumulative negative balance of 19,332. ASSESSMENT: 1. Fluid overload secondary to chronic kidney disease. 2. CKD stage 4. Patient is being followed up by Nephrology and she gets scheduled dialysis. 3. Diastolic heart failure. I think this probably is also contributing to the fluid overload. 4. Morbid obesity with BMI of 64.3, weight loss has been advised. 5. Anemia of chronic kidney disease. The patient gets Epo. 6. History of coronary artery disease status post CABG. 7. Diabetes mellitus on insulin regimen and glucose is fairly controlled. 8. Hypothyroidism. Will continue with levothyroxine. 9. Suspected sleep apnea with possible right heart failure. Patient has been advised to do outpatient sleep studies. 10. 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 Daniels's operative report. So in general Ms. Sheridan is going to continue with dialysis as scheduled by Nephrology. She is still multiple L over fluid so I think we will continue addressing her fluid status. cc: Jason Rojas MD
[2017-05-28] MEDS: LIPITOR PO SCH (22:27)
[2017-05-29] MEDS: CARDIZEM PO SCH ×4 (03:40→20:08)
[2017-05-29] MEDS: DILAUDID IV PRN ×5 (04:01→21:22)
[2017-05-29] MEDS: VENOFER 200 MG in NS 150 ML IV SCH (08:03)
[2017-05-29] MEDS: LEVEMIR SUBQ SCH ×2 (08:04→20:05)
[2017-05-29] MEDS: PERIDEX MT SCH ×2 (08:04→20:10)
[2017-05-29] MEDS: FLEXERIL PO PRN ×2 (08:04→17:23)
[2017-05-29] MEDS: APRESOLINE PO SCH ×3 (08:05→20:09)
[2017-05-29] MEDS: PREVACID SOLUTAB PO SCH ×2 (08:05→20:09)
[2017-05-29] MEDS: BUSPAR PO SCH ×2 (08:05→20:09)
[2017-05-29] MEDS: PLAVIX PO SCH (08:05)
[2017-05-29] MEDS: CATAPRES PO SCH ×3 (08:05→17:23)
[2017-05-29] MEDS: ZOLOFT PO SCH (08:06)
[2017-05-29] MEDS: SYNTHROID PO SCH (08:06)
[2017-05-29] MEDS: ASPIRIN PO SCH (08:06)
[2017-05-29] MEDS: ALBUTEROL NEB INH PRN ×2 (08:17→19:50)
[2017-05-29] MEDS: HUMALOG SUBQ SCH ×4 (10:53→20:06)
[2017-05-29] MEDS ORDERED: INSULIN PEN NEEDLES ONE (16:00)
--- NOTE | 2017-05-29 17:05 | PROGRESS NOTE ---
DATE: 05/29/2017 SUBJECTIVE: Today Ms. Sheridan is stable. She still complains of this excessive fluid in her legs and she is more concerned. OBJECTIVE: Vital signs: Blood pressure is 157/82, pulse of 89, respiration is 20, temperature 98.2 degrees. General: Ms. Sheridan is a 57-year-old female. She is in bed. She did not seem to be in any distress. She is morbidly obese with a BMI of 61.4. Head, eyes, ears, nose and throat: Mucosa is pink and moist. Anicteric and acyanotic. Neck: Supple. Chest: Good air entry bilaterally. A few bibasilar crepitations. Cardiovascular: Regular rate and rhythm. There are no murmurs, no rubs, no gallops. Abdomen: Soft, distended, but nontender. Bowel sounds are present. Extremities: About 3+ pedal edema. There are some chronic skin changes on the right barone and some dark hyperpigmentations minimally on the left. ASSESSMENT: 1. Fluid overload. 2. Chronic kidney disease stage 4. Patient continues to have good urine output. 3. Diastolic heart failure. 4. Obesity with body mass index of 61.4. 5. Diabetes mellitus on insulin regimen. 6. Hypothyroidism. We will continue with levothyroxine. 7. Suspected sleep apnea with possible right heart failure. Patient is advised to do a sleep study on outpatient basis. 8. Suspected right internal jugular occlusion as per surgeon report. PLAN: In general, I think Ms. Sheridan is relatively stable. Continues to have significant fluid overload, which I think is a combination of kidney problems and obesity and heart disease. Patient has been started on torsemide and metolazone to help with fluid management. She has had multiple rounds of dialysis here in the hospital. I think in the long run, we will probably not be able to achieve euvolemic status in Ms. Sheridan before we discharge her. I think most of her problem has to do with excessive weight, which I stressed to her the importance of weight management. cc: Jason Rojas MD
[2017-05-29] MEDS: ZAROXOLYN PO SCH (17:29)
[2017-05-29] MEDS: DEMADEX PO SCH (17:29)
[2017-05-29] MEDS: NORCO-10 PO PRN (20:08)
[2017-05-29] MEDS: XANAX PO PRN (20:09)
[2017-05-29] MEDS: LIPITOR PO SCH (20:09)
[2017-05-30] MEDS: CARDIZEM PO SCH ×4 (01:59→20:36)
[2017-05-30] MEDS: DILAUDID IV PRN ×5 (02:06→22:45)
[2017-05-30] MEDS: NORCO-10 PO PRN ×3 (04:41→22:41)
[2017-05-30 05:52] LABS: MANUAL DIFF NEEDED? NO
[2017-05-30 05:59] LABS: BASO% 0.8 % (0.0-0.8); EOS# 0.44 X1000 (0.0-0.7); EOS% 5.8 % (0.0-10.0); HEMATOCRIT 32.9 % (37.0-47.0); HEMOGLOBIN 9.9 g/dL (12.0-16.0); IMM GRAN# 0.16 X1000 (0.0-0.04); IMM GRAN% 2.1 % (0.0-0.5); LYMPH# 1.05 X1000 (1.2-3.4); LYMPH% 13.8 % (20.5-51.1); MCH 26.5 PG (27-31); MCHC 30.1 g/dL (33-37); MCV 88.2 FL (81-99); MONO# 0.75 X1000 (0.11-0.59); MONO% 9.9 % (1.7-9.3); MPV 9.7 FL (7.4-10.4); NEUT% 67.6 % (42.2-75.2); PLT 367 X1000 (130-400); RBC 3.73 XMIL (4.2-5.4)
[2017-05-30 06:18] LABS: CALCIUM 8.7 mg/dL (8.8-10.2); POTASSIUM 4.6 mmol/L (3.5-5.1)
[2017-05-30] MEDS: HUMALOG SUBQ SCH ×4 (06:49→20:37)
[2017-05-30] MEDS ORDERED: NS 2,000 ML MISC PRN (07:45)
[2017-05-30] MEDS ORDERED: TIGHT: 0.2 ML/HR MISC PRN (07:45)
[2017-05-30] MEDS ORDERED: HEPARIN IV PRN (07:45)
[2017-05-30] MEDS: PERIDEX MT SCH ×3 (07:58→20:35)
[2017-05-30] MEDS: LEVEMIR SUBQ SCH ×2 (07:58→20:36)
[2017-05-30] MEDS: BUSPAR PO SCH ×3 (07:58→20:35)
[2017-05-30] MEDS: APRESOLINE PO SCH ×3 (07:59→20:36)
[2017-05-30] MEDS: CATAPRES PO SCH ×3 (07:59→19:27)
[2017-05-30] MEDS: EPOGEN SUBQ SCH (07:59)
[2017-05-30] MEDS: PLAVIX PO SCH (07:59)
[2017-05-30] MEDS: SYNTHROID PO SCH (07:59)
[2017-05-30] MEDS: ASPIRIN PO SCH (07:59)
[2017-05-30] MEDS: DEMADEX PO SCH (08:00)
[2017-05-30] MEDS: ZAROXOLYN PO SCH (08:00)
[2017-05-30] MEDS: ZOLOFT PO SCH (08:01)
[2017-05-30] MEDS: ALBUTEROL NEB INH PRN ×4 (08:23→23:43)
[2017-05-30] MEDS: VENOFER 200 MG in NS 150 ML IV SCH (13:03)
[2017-05-30] MEDS: PREVACID SOLUTAB PO SCH ×2 (13:04→20:32)
--- NOTE | 2017-05-30 15:40 | PROGRESS NOTE ---
DATE: 05/30/2017 SUBJECTIVE: Patient is currently undergoing hemodialysis. OBJECTIVE: Vital signs: Temperature 97.9 degrees, pulse 80, respiratory rate 18, blood pressure 140/67. Intake 1.5 L. Output 1 L. General: Middle-aged female, appears older than stated age, chronically ill-appearing. No acute distress. HEENT: Normocephalic, atraumatic. Oral mucosa is dry. Dentition poor. Neck: Thick, supple. Unable to discern JVD. Cardiovascular: Regular rate and rhythm. No murmur is appreciated. Pulmonary: She has equal excursion. She has some rhonchi bilaterally. Few scattered expiratory wheeze. She is on O2 supplementation via nasal cannula. Abdomen: Soft, obese. Positive bowel sounds. Genitourinary: Not inspected. Extremities: 3+ pretibial edema that extends up to the abdominal wall. Integumentary: Skin is warm and dry. LAB DATA: WBC of 7.5, hemoglobin 9.9. Sodium 135, potassium 4.6, CO2 26, creatinine 4.7. ASSESSMENT AND PLAN: 1. End-stage renal disease management with fluid volume overload. We will continue her dialysis daily until we achieve a euvolemic state. 2. Right heart failure, followed by primary and Cardiology. Again, we will continue daily dialysis for fluid management. 3. Electrolytes, acid-base balance, anemia. Continue EPO and today's dialysis will be on a 2 K bath. 4. Blood pressure, controlled. Dictated by ALICE Lizarraga for Nba Navarrete MD Patient seen, data reviewed, discussed with Pushpa Rodriguez on 05/31/17. I agree with the above assessment and plan of care. cc: Nba Navarrete MD [facility]
--- NOTE | 2017-05-30 17:36 | PROGRESS NOTE ---
DATE: 05/30/2017 SUBJECTIVE: Ms. Sheridan just came from dialysis. She was sitting up in the chair. She referred to be doing fine but she had a minimum nasal bleed. OBJECTIVE: Vital signs: Blood pressure is 157/77, pulse of 98, respirations 18, temperature is 98.4 degrees. General: Ms. Sheridan is a 57-year-old female, morbidly obese, BMI is 59.6 now. She is not in any distress. HEENT: Mucosa is pink and moist. Anicteric. Acyanotic. Neck: Supple. Chest: Air entry is bilaterally reduced. No crepitations. Cardiovascular: Regular rate and rhythm. Abdomen: Soft, nontender. Extremities: About 3+ pedal edema. There is some chronic erythematous changes on the left leg. LABORATORY DATA: WBC 7.59, hemoglobin is 9.9, platelet count of 367,000. Chemistry is also reviewed, consistent with chronic kidney disease. No imaging studies for today. ASSESSMENT: 1. Fluid overload. Patient is getting dialysis with ultrafiltration. I spoke with Dr. Navarrete today. His plan is to continue dialysis until patient is dry. 2. Chronic kidney disease stage 4-5. patient is needing dialysis. 3. Diastolic heart failure. 4. Obesity with body mass index of 59. Diabetes mellitus, on insulin regimen, glucose control. 1. Hypothyroidism. Patient is on levothyroxine. 2. Suspected sleep apnea with possible right heart failure. The patient has been advised to do an outpatient sleep study. 3. Suspected right internal jugular occlusion as per surgery report (Dr. Daniels). 4. Mild nasal bleed. I suspect this is due to the dry oxygen. We will keep eye on this. Oxygen will need to be humidified before. PLAN: So in general, Ms. Sheridan is clinically stable. Still has liters of fluid on board. Nephrology continues to dialyze the patient and has been also putting out adequate urine. Currently on torsemide and metolazone. cc: Jason Rojas MD
[2017-05-30] MEDS: LIPITOR PO SCH (20:35)
[2017-05-30] MEDS: XANAX PO PRN (22:41)
[2017-05-31] MEDS: NORCO-10 PO PRN ×2 (00:21→22:35)
[2017-05-31] MEDS: DILAUDID IV PRN ×4 (03:05→20:28)
[2017-05-31] MEDS: CARDIZEM PO SCH ×4 (03:07→20:27)
[2017-05-31] MEDS: HUMALOG SUBQ SCH ×4 (06:36→20:29)
[2017-05-31] MEDS ORDERED: HEPARIN IV PRN (07:02)
[2017-05-31] MEDS ORDERED: NS 2,000 ML MISC PRN (07:02)
[2017-05-31] MEDS ORDERED: TIGHT: 0.2 ML/HR MISC PRN (07:02)
[2017-05-31] MEDS: ALBUTEROL NEB INH PRN ×4 (07:30→22:33)
[2017-05-31] MEDS ORDERED: HEPARIN ONE (07:32)
[2017-05-31] MEDS ORDERED: NS 2,000 ML ONE (07:32)
--- NOTE | 2017-05-31 09:21 | PROGRESS NOTE ---
DATE: 05/31/2017 SUBJECTIVE: The patient is sitting up in bed undergoing a breathing treatment. She states that she had difficulty breathing last night and this morning. OBJECTIVE: Vital Signs: Temperature 98.1 degrees, pulse 95, respiratory rate 20 , blood pressure 152/74, intake 1.7 L, output 6.6 L. PHYSICAL EXAMINATION: General: Middle-aged female, sitting up in bed. Awake and alert. Undergoing a breathing treatment. No acute distress. HEENT: Normocephalic, atraumatic. Conjunctivae pink. Neck is supple, thick. Unable to discern JVD. Cardiovascular: Regular rate and rhythm without murmur or gallop. Distant heart sounds. Pulmonary: Equal excursion. She continues with some wheeze bilaterally. Abdomen obese, soft, positive bowel sounds. not inspected. Extremities: 3+ pretibial edema up to the hips. Her edema is somewhat softer today. Integumentary: Skin is warm and dry without rash or lesion. She has a tunneled dialysis catheter noted with insertion site clean, dry, and intact to right upper chest wall. LABORATORY DATA: WBC of 7.5, hemoglobin 9.9. Chemistries are pending. ASSESSMENT AND PLAN: 1. End-stage renal disease management with fluid volume overload. We have been able to remove at least 18 kilos since we initiated dialysis. We will plan to dialyze her daily until we achieve a euvolemic state. We will dialyze her today on a 2 K bath/6 liter UF goal/4-hour treatment. I did have a long discussion with the patient regarding her oral fluid intake and restricting that to less than 2 L a day explaining how to measure this and the importance of this as an outpatient in maintaining her fluid volumes moving forward. The patient was able to verbalize understanding and plan. 2. Right heart failure followed by primary cardiology. See #1 for nephrology plan. 3. Electrolytes, acid-base balance. I have no labs. These are pending today. They have been stable. 4. Anemia. We initiated Epo. 5. Blood pressure currently controlled. Dictated by ALICE Lizarraga for Nba Navarrete MD Patient seen, data reviewed, discussed with Pushpa Rodriguez on 05/31/17. I agree with the above assessment and plan of care. cc: Nba Navarrete MD [facility]
[2017-05-31] MEDS: SYNTHROID PO SCH (11:41)
[2017-05-31] MEDS: APRESOLINE PO SCH ×3 (11:42→20:27)
[2017-05-31] MEDS: CATAPRES PO SCH ×3 (11:42→17:15)
[2017-05-31] MEDS: BUSPAR PO SCH ×2 (11:42→20:27)
[2017-05-31] MEDS: ZAROXOLYN PO SCH (11:43)
[2017-05-31] MEDS: DEMADEX PO SCH (11:44)
[2017-05-31] MEDS: LEVEMIR SUBQ SCH ×3 (11:44→20:45)
[2017-05-31] MEDS: PERIDEX MT SCH ×2 (11:44→20:27)
[2017-05-31] MEDS: ASPIRIN PO SCH (11:44)
[2017-05-31] MEDS: PLAVIX PO SCH (11:44)
[2017-05-31] MEDS: ZOLOFT PO SCH (11:44)
[2017-05-31] MEDS: PREVACID SOLUTAB PO SCH ×2 (11:44→20:27)
[2017-05-31] MEDS: VENOFER 200 MG in NS 150 ML IV SCH (11:45)
--- NOTE | 2017-05-31 18:44 | CONSULTATION ---
DATE OF CONSULTATION: 05/31/2017 CONCLUSION: The patient has cellulitis especially prominent on the right leg and only minimally present on the left leg. The patient is predisposed to this by virtue of having leg edema but she did not have tinea pedis. RECOMMENDATIONS: I have started the patient on Rocephin. Also I have ordered that the foot of the patient's bed should be elevated with the manual gatch at all times. I told the patient that she needs to elevate her legs as much as possible. Also, I told her it would be good if she could lose weight. DISCUSSION: The patient states that she had been developing increasing fluid after she was stopped on dialysis. Approximately 10 days ago her right leg became erythematous, and to a much less extent the left leg did too. She eventually was admitted into the hospital. The patient states that she does occasionally sweat. She is having dyspnea also. She is not having any nausea or vomiting. Laboratory studies thus far show a CBC with a white count of 7590, hemoglobin 9.9, and platelet count 367,000. Creatinine is 4.7. The GFR is 10. Chest x-ray shows cardiomegaly and pulmonary edema. PAST MEDICAL HISTORY/REVIEW OF SYSTEMS: Eyes and ears: She does not have any difficulty seeing or hearing. Neck: No stiffness. Respiratory: As mentioned above, the patient does get dyspneic especially with exertion. Cardiac: She is not having chest pain or palpitations. GI: She is not having nausea, vomiting or diarrhea. : She is not having dysuria or flank pain. Endocrine: The patient has diabetes and hypothyroidism. Neurologic: No seizures or motor or sensory loss. Hematologic: The patient does not have any history of bleeding easily. BANJO REPAIRER HISTORY: She is a 2, para 2, AB 0. She delivered both her children by . She has had a hysterectomy. PREVIOUS HOSPITALIZATIONS AND OPERATIONS: She has had 2 C-sections, hysterectomy. She has had placement of a left-sided tunneled dialysis catheter. She has also had coronary artery bypass grafting, a cholecystectomy, appendectomy and incision and drainage of abscesses which have occurred in various areas of the patient's body. MEDICAL DISEASES: Positive for diabetes mellitus, coronary artery disease, hypertension, myocardial infarction, stroke and obesity. The patient also is in renal failure and is on dialysis. Hyperlipidemia, gastroesophageal reflux disease and hypothyroidism. INFECTIOUS DISEASE HISTORY: Positive for pneumonia and UTI. FAMILY HISTORY: Positive for diabetes mellitus, myocardial infarction, stroke, and cancer. SOCIAL HISTORY: [place] She is . She does not drink or smoke. She does not abuse drugs. She has dogs for pets. ALLERGIES: She is allergic to clindamycin, erythromycin and Mobic. HOME MEDICATIONS: Include the following: Lopressor, hydrocodone, buspirone, Synthroid, Prevacid, Humalog, Levemir, Apresoline, Lasix, diltiazem, Plavix, Catapres, aspirin, Lipitor and sertraline. PHYSICAL EXAMINATION: Temperature is 98.5 degrees, pulse 109, respirations 12, blood pressure 137/94. Patient weighs 402 pounds. Generally: This is an obese, middle-aged female who is in no acute distress. Head, eyes, ears, nose, and throat: She can hear my spoken words. She can see near objects. There were no white patches on the patient's tongue. Neck: No meningismus. Thorax: Appeared to be increased AP diameter to the chest. Lungs: Clear to auscultation. Cardiovascular: Heart rate was regular. There was both bilateral leg edema. In addition, the right leg was erythematous anteriorly. Abdomen: Soft and nontender. Thorax: Patient has a tunneled dialysis catheter present on the left side. The site is not erythematous or swollen or tender. Neurologic: Patient is alert. She can move her extremities. There is no tremor. Her sensation is intact to touch. Her memory, as regarding her medical history was diminished. Thank you for the consult. cc: Balwinder Alvarado MD
[2017-05-31] MEDS: ROCEPHIN 2 GM in NS 50 ML IV SCH (18:48)
--- NOTE | 2017-05-31 19:24 | PROGRESS NOTE ---
DATE: 05/31/2017 SUBJECTIVE: The patient was seen while on dialysis this morning. The patient reports that her legs hurt and that she was unable to sleep last night. She also reports that the redness in her right leg has gotten worse over the course of her hospitalization. OBJECTIVE: Vital Signs: Temperature 98.5, blood pressure 137/94, heart rate 109, respirations 12, O2 saturations 95% on 3 L nasal cannula. Input 1.7 L, out 6.6 L. General: This is a morbidly obese female, lying in bed, in no acute distress. Heart: S1, S2. Normal. Regular rate and rhythm. Lungs: Equal air entry bilaterally. No crackles. No wheezing. No rales. Abdomen: Positive bowel sounds. Soft, obese, nontender, nondistended. Extremities: The patient has 3+ edema in the lower extremities plus erythema involving the right lower extremity. Neurologic: The patient is alert and oriented x3. No focal neurologic deficits noted. LABS: None. ASSESSMENT AND PLAN: 1. Fluid overload with pulmonary edema. This is currently being managed by the corporate security officer during dialysis. We will order a chest x-ray for tomorrow. 2. Lower extremity cellulitis. We will consult Dr. Alvarado for further antibiotic recommendations. 3. End stage renal disease. The patient is currently on dialysis. 4. Uncontrolled insulin-dependent diabetes mellitus. We will increase the Levemir to 60 units every morning. 5. Hypothyroidism. Continue on Synthroid. 6. Suspected obstructive sleep apnea. The patient will need to have a sleep study done as outpatient. 7. Insomnia. Will start melatonin. 8. Deep vein thrombosis prophylaxis. Will start the patient on heparin. 9. Continue with physical therapy. cc: Aga Kearns MD [facility]
[2017-05-31] MEDS: LIPITOR PO SCH (20:27)
[2017-05-31] MEDS: DESYREL PO SCH (20:40)
[2017-05-31] MEDS: HEPARIN SUBQ SCH (20:41)
[2017-05-31] MEDS: MELATONIN PO SCH (22:11)
[2017-05-31] MEDS: XANAX PO PRN (22:32)
[2017-06-01] MEDS: DILAUDID IV PRN ×4 (03:24→17:09)
[2017-06-01] MEDS: CARDIZEM PO SCH ×5 (03:24→21:22)
[2017-06-01 05:50] LABS: HEMATOCRIT 33.2 % (37.0-47.0); MCH 27.4 PG (27-31); MCHC 30.1 g/dL (33-37); MPV 9.9 FL (7.4-10.4); RBC 3.65 XMIL (4.2-5.4)
[2017-06-01 06:09] LABS: ALBUMIN 3.1 g/dL (3.5-5.0); CALCIUM 8.7 mg/dL (8.8-10.2); POTASSIUM 5.1 mmol/L (3.5-5.1)
[2017-06-01] MEDS ORDERED: NS 2,000 ML MISC PRN (07:09)
[2017-06-01] MEDS ORDERED: HEPARIN IV PRN (07:09)
[2017-06-01] MEDS ORDERED: TIGHT: 0.2 ML/HR MISC PRN (07:09)
[2017-06-01] MEDS: HUMALOG SUBQ SCH ×4 (07:26→21:24)
--- NOTE | 2017-06-01 07:34 | Diag Imaging Result Doc PS360 ---
CHEST-PORTABLE - 06/01/2017 INDICATION: dyspnea TECHNIQUE: COMPARISON: 05/25/2017 FINDINGS: Stable sternotomy changes. Stable left-sided dialysis catheter in good position. Lung volumes are improved. Otherwise no change in the persistent cardiomegaly and pulmonary vascular congestion. There is improvement in the pulmonary edema. No focal infiltrates or large effusions. IMPRESSION: Improvement from prior. Electronically signed by Jean Sanchez 06/01/2017 7:32 AM
[2017-06-01] MEDS: ALBUTEROL NEB INH PRN ×4 (07:57→23:57)
[2017-06-01] MEDS: LEVEMIR SUBQ SCH ×2 (08:11→21:23)
--- NOTE | 2017-06-01 08:22 | PROGRESS NOTE ---
DATE: 06/01/2017 PRESENT ILLNESS: The patient has cellulitis most prominent in the right leg. I started the patient last night on Rocephin. Also I have ordered that the foot of the patient's bed should remain elevated with the manual gatch and I told the patient to elevate her legs as much as possible, even when she was not in bed. MEDICATIONS: The patient is on Rocephin, as mentioned above. PHYSICAL EXAMINATION: Vital Signs: Temperature is 98 degrees, pulse 102, respirations 18, blood pressure 170/71. General: This is a morbidly obese, middle-aged female. She is in no acute distress currently. Lungs: Clear to auscultation. Cardiovascular: Regular heart rate. Thorax: Patient has a left-sided tunneled dialysis catheter in place. The catheter site is not erythematous or swollen. Abdomen: Soft and nontender. Extremities: Both legs seem to be less swollen. The right leg is less erythematous than it was last night. LAB AND X-RAY: Chest x-ray a result is pending. Patient's CBC shows a white count of 7,400, hemoglobin 10, and platelet count of 323,000. Creatinine is 5.9. The creatinine is 5. The GFR is 9. ASSESSMENT AND PLAN: My plan is to continue Rocephin, continue leg elevation, and continue keeping the foot of the bed up with the manual gatch at all times. The patient's comorbidities include she is very obese, she also has diabetes mellitus, she is in renal failure and is on dialysis, previous history of a stroke, and gastroesophageal reflux disease. cc: Balwinder Alvarado MD
[2017-06-01] MEDS: HEPARIN SUBQ SCH ×2 (11:33→21:21)
[2017-06-01] MEDS: ZAROXOLYN PO SCH (11:34)
[2017-06-01] MEDS: PERIDEX MT SCH ×2 (11:34→21:22)
[2017-06-01] MEDS: DEMADEX PO SCH (11:34)
[2017-06-01] MEDS: EPOGEN SUBQ SCH (11:34)
[2017-06-01] MEDS: SYNTHROID PO SCH (11:34)
[2017-06-01] MEDS: PREVACID SOLUTAB PO SCH ×2 (11:34→21:20)
[2017-06-01] MEDS: PLAVIX PO SCH (11:34)
[2017-06-01] MEDS: ZOLOFT PO SCH (11:34)
[2017-06-01] MEDS: ASPIRIN PO SCH (11:44)
--- NOTE | 2017-06-01 13:55 | PROGRESS NOTE ---
DATE: 06/01/2017 SUBJECTIVE: She states she has been out of bed moving around, and is generally more mobile and feeling better. Shortness of breath is improved. OBJECTIVE: Vital Signs: Blood pressure 144/62, heart rate 100, respiration 18, afebrile. Weight 174 kg. General: She is in no distress. Skin: Warm and dry. Eyes: Conjunctivae are pink. Neck: Neck veins are not appreciated. Heart: Regular without gallops. Lungs: Have equal breath sounds. No crackles. Abdomen: Obese and soft. There is no longer any edema in the pannus. Extremities: Have 3+ edema in the legs. No clubbing or cyanosis. LABORATORY DATA: Sodium 133, potassium 5.1, chloride 94, bicarbonate 25, BUN 46, creatinine 5.0, hemoglobin 10.0. IMPRESSION: 1. Volume overload with end-stage kidney disease. Continue daily dialysis as we address her ongoing volume overload. Her weight is down 25 kg since admission. Outpatient dialysis has been arranged for when she is ready for discharge. 2. Electrolytes are acceptable. 3. Acid base in target. 4. Anemia. Hemoglobin is stable and within target. Continue erythropoietin. cc: Nba Navarrete MD
[2017-06-01] MEDS: APRESOLINE PO SCH ×4 (17:02→21:21)
[2017-06-01] MEDS: CATAPRES PO SCH ×2 (17:02→17:09)
[2017-06-01] MEDS: BUSPAR PO SCH ×2 (17:03→21:18)
[2017-06-01] MEDS: ROCEPHIN 2 GM in NS 50 ML IV SCH ×2 (17:10→18:32)
--- NOTE | 2017-06-01 17:43 | PROGRESS NOTE ---
DATE: 06/01/2017 SUBJECTIVE: The patient is resting comfortably in bed. She had an episode of hypotension prior to dialysis this morning so her session was canceled. The patient states that she slept well last night. OBJECTIVE: Vital Signs: Temperature 98 degrees, blood pressure 145/53, heart rate 107, respirations 18, O2 saturation 95%. General: This is a morbidly obese female, lying in bed, in no acute distress. Head: Normocephalic atraumatic. Heart: S1, S2. Normal. Regular rate and rhythm. Tachycardic. Lungs: Coarse breath sounds bilaterally. No wheezing. Abdomen: Positive bowel sounds. Soft, obese, nontender, nondistended. Extremities: 3+ edema with erythema involving the right lower extremity. Neurologic: The patient is alert and oriented x4. LABS: White blood cell count 7.4, hemoglobin 10, hematocrit 33, platelets 323,000. Sodium 133, potassium 5.1, chloride 94, CO2 25, BUN 46, creatinine 5, glucose 185. ASSESSMENT AND PLAN: 1. Fluid overload with pulmonary edema. Continue with dialysis as scheduled by the jewelry coater. 2. Lower extremity cellulitis. Continue on Rocephin as ordered by Dr. Alvarado. The patient has been advised to keep her legs elevated. 3. End-stage renal disease. Management as per the jewelry coater. 4. Uncontrolled insulin-dependent diabetes mellitus. Continue on Levemir twice a day. 5. Hypothyroidism. Continue on Synthroid. 6. Suspected obstructive sleep apnea. The patient will follow up with the audio visual director to undergo a sleep study. 7. Insomnia. Continue on melatonin and trazodone. 8. Deep vein thrombosis prophylaxis. Continue on heparin. 9. Continue with physical therapy. cc: Aga Kearns MD
[2017-06-01] MEDS: XANAX PO PRN (21:17)
[2017-06-01] MEDS: LIPITOR PO SCH (21:17)
[2017-06-01] MEDS: MELATONIN PO SCH (21:18)
[2017-06-01] MEDS: DESYREL PO SCH (21:19)
[2017-06-02] MEDS: DILAUDID IV PRN ×5 (00:04→21:50)
[2017-06-02] MEDS: CARDIZEM PO SCH ×4 (03:29→21:22)
[2017-06-02] MEDS: HUMALOG SUBQ SCH ×4 (06:05→20:55)
[2017-06-02] MEDS ORDERED: INSULIN PEN NEEDLES ONE (06:55)
--- NOTE | 2017-06-02 08:00 | PROGRESS NOTE ---
DATE: 06/02/2017 PRESENT ILLNESS: The patient has cellulitis of the right leg. She is predisposed to this because she has chronic edema in both legs. Also I have elevated the foot of her bed with the manual gatch and I have told her that should be left that way all the time and I have told the patient to elevate her legs as much as possible. MEDICATIONS: Patient is receiving Rocephin. PHYSICAL EXAMINATION: Temperature is 98.2 degrees, pulse 99, respirations 18, blood pressure 142/73.General: This is a morbidly obese middle-aged female who is in no acute distress. Lungs: Clear to auscultation. Cardiovascular: Regular heart rate. Abdomen: Soft and not tender. Extremities: The right leg is less edematous and most of the erythema has cleared. LAB AND X-RAY: There is no new lab or x-ray for today. ASSESSMENT AND PLAN: Patient has leg cellulitis. I am going to continue with Rocephin and also continue having the patient elevate her legs as much as possible. COMORBIDITIES: Include obesity, diabetes mellitus, and renal failure, the patient is on dialysis. Prior history of stroke and gastroesophageal reflux disease. cc: Balwinder Alvarado MD
[2017-06-02 08:08] LABS: HEMATOCRIT 33.6 % (37.0-47.0); HEMOGLOBIN 10.3 g/dL (12.0-16.0); MCHC 30.7 g/dL (33-37); MPV 9.7 FL (7.4-10.4); RBC 3.82 XMIL (4.2-5.4)
[2017-06-02] MEDS: ALBUTEROL NEB INH PRN ×4 (08:19→23:03)
[2017-06-02] MEDS ORDERED: HEPARIN IV PRN (08:20)
[2017-06-02] MEDS ORDERED: TIGHT: 0.2 ML/HR MISC PRN (08:20)
[2017-06-02] MEDS ORDERED: NS 2,000 ML MISC PRN (08:20)
[2017-06-02 08:23] LABS: ALBUMIN 3.1 g/dL (3.5-5.0); CALCIUM 8.6 mg/dL (8.8-10.2); POTASSIUM 4.4 mmol/L (3.5-5.1)
[2017-06-02] MEDS ORDERED: HEPARIN ONE (08:52)
[2017-06-02] MEDS ORDERED: NS 2,000 ML ONE (08:52)
[2017-06-02] MEDS: PREVACID SOLUTAB PO SCH ×2 (12:49→20:50)
[2017-06-02] MEDS: APRESOLINE PO SCH ×3 (12:50→20:50)
[2017-06-02] MEDS: BUSPAR PO SCH ×2 (12:50→20:50)
[2017-06-02] MEDS: ASPIRIN PO SCH (12:50)
[2017-06-02] MEDS: ZAROXOLYN PO SCH (12:50)
[2017-06-02] MEDS: CATAPRES PO SCH ×3 (12:50→17:26)
[2017-06-02] MEDS: SYNTHROID PO SCH (12:51)
[2017-06-02] MEDS: PLAVIX PO SCH (12:51)
[2017-06-02] MEDS: ZOLOFT PO SCH (12:51)
[2017-06-02] MEDS: HEPARIN SUBQ SCH ×2 (12:52→20:52)
[2017-06-02] MEDS: PERIDEX MT SCH ×2 (12:52→20:48)
[2017-06-02] MEDS: LEVEMIR SUBQ SCH ×2 (13:01→20:56)
--- NOTE | 2017-06-02 15:27 | PROGRESS NOTE ---
DATE: 06/02/2017 SUBJECTIVE: The patient is currently on dialysis. She states that she did not sleep well last night, but the swelling in her legs is improving. OBJECTIVE: Vital Signs: Temperature 98 degrees, blood pressure 151/76, heart rate 90, respirations 15, O2 saturations 96% on 2 L nasal cannula. General: This is a morbidly obese female lying in bed in no acute distress. Heart: S1, S2. Normal. Regular rate and rhythm. Lungs: Equal air entry bilaterally. Diminished breath sounds at the bases. No crackles. No rales. Abdomen: Positive bowel sounds. Soft, obese, nontender, nondistended. Extremities: 2+ edema. Decreased erythema in the right lower extremity. Neurologic: The patient is alert and oriented x3. LABORATORY: White blood cell count 7.3, hemoglobin 10, hematocrit 33, platelets 339,000. Sodium 134, potassium 4.4, chloride 95, CO2 24, BUN 43, creatinine 4.5, glucose 208. ASSESSMENT AND PLAN: 1. Fluid overload with pulmonary edema. Slowly improving. Continue with dialysis as scheduled by the manager sales support. 2. Lower extremity cellulitis. Continue on Rocephin as directed by Dr. Alvarado. 3. End-stage renal disease. Management as per the manager sales support. 4. Uncontrolled insulin-dependent diabetes mellitus. Continue on Levemir 60 units twice a day. 5. Hypothyroidism. Continue on Synthroid. 6. Insomnia. Continue on melatonin and trazodone. 7. Anemia of chronic disease. Continue to monitor the patient's hemoglobin and hematocrit closely. 8. Deep vein thrombosis prophylaxis. Continue on heparin. 9. Continue with physical therapy. cc: Aga Kearns MD
--- NOTE | 2017-06-02 16:19 | PROGRESS NOTE ---
DATE: 06/02/2017 SUBJECTIVE: The patient is currently resting in bed. She states that she has had a pressure ulcer to form to her sacral area. Otherwise, she has no complaints. OBJECTIVE: Vital Signs: Temperature 98 degrees, pulse 93, respiratory rate 20 , blood pressure 151/76. Intake 340 mL, output 3 L. Of note, she is near 57 L out since admission. General: Middle-aged female resting in bed. She is awake, alert, no acute distress. HEENT: Normocephalic, atraumatic. Oral mucosa moist. Dentition poor. Neck: Supple. Trachea midline. Cardiovascular: Regular rate and rhythm. No murmur or gallop. Pulmonary: She has equal excursion. She is clear bilaterally today. Abdomen: Soft, with positive bowel sounds. Obese. : Not inspected. Extremities: She has 2+ to 3+ pretibial edema which is much softer than previous. Her pedal edema is almost resolved. Feet are very wrinkled. Upper extremity edema improved. She is moving all extremities. She does have chronic venous stasis changes noted bilateral lower extremities. Integumentary: Skin is warm and dry otherwise. Tunnel dialysis catheter right upper chest wall is clean, dry and intact. LAB DATA: WBC of 7.3, hemoglobin 10.3. Sodium 134, potassium 4.4, CO2 24, creatinine 4.5, albumin 3.1. ASSESSMENT AND PLAN: 1. End-stage renal disease with fluid volume overload. We will continue daily dialysis until we can obtain a euvolemic state for her. Outpatient dialysis has been arranged once she is discharged. 2. Electrolytes, acid-base balance, anemia: These are stable. Continue to monitor. Treat with dialysis. Dictated by ALICE Lizarraga for Nba Navarrete MD Patient seen, data reviewed, discussed with Pushpa Rodriguez on 06/02/17. I agree with the above assessment and plan of care. cc: MD SOURAV Thomason
[2017-06-02] MEDS: ROCEPHIN 2 GM in NS 50 ML IV SCH (17:26)
[2017-06-02] MEDS: LIPITOR PO SCH (20:48)
[2017-06-02] MEDS: MELATONIN PO SCH (20:49)
[2017-06-02] MEDS: DESYREL PO SCH (20:49)
[2017-06-03] MEDS: CARDIZEM PO SCH ×3 (01:31→14:20)
[2017-06-03] MEDS: DILAUDID IV PRN ×2 (01:39→12:15)
[2017-06-03] MEDS: HUMALOG SUBQ SCH ×2 (06:20→14:21)
[2017-06-03 06:27] LABS: ALBUMIN 3.1 g/dL (3.5-5.0); CALCIUM 8.7 mg/dL (8.8-10.2); POTASSIUM 4.9 mmol/L (3.5-5.1)
[2017-06-03 06:33] LABS: BASO% 0.3 % (0.0-0.8); EOS# 0.27 X1000 (0.0-0.7); EOS% 3.5 % (0.0-10.0); LYMPH# 1.26 X1000 (1.2-3.4); LYMPH% 16.6 % (20.5-51.1); MANUAL DIFF NEEDED? YES; MCH 27.5 PG (27-31); MCHC 30.3 g/dL (33-37); MCV 90.9 FL (81-99); MONO# 0.57 X1000 (0.11-0.59); MONO% 7.5 % (1.7-9.3); MPV 10.1 FL (7.4-10.4); NEUT% 72.1 % (42.2-75.2); PLT 312 X1000 (130-400); RBC 3.63 XMIL (4.2-5.4)
[2017-06-03 06:57] LABS: BANDS 2 % (0-1); LYMPHS 18 % (21-51); MONO 2 % (1-9)
[2017-06-03] MEDS ORDERED: TIGHT: 0.2 ML/HR MISC PRN (07:18)
[2017-06-03] MEDS ORDERED: NS 2,000 ML MISC PRN (07:18)
[2017-06-03] MEDS ORDERED: HEPARIN IV PRN (07:18)
[2017-06-03] MEDS ORDERED: HEPARIN ONE (08:14)
[2017-06-03] MEDS ORDERED: NS 2,000 ML ONE (08:14)
--- NOTE | 2017-06-03 11:20 | PROGRESS NOTE ---
DATE: 06/03/2017 PRESENT ILLNESS: The patient has cellulitis of the right leg to which she is predisposed by virtue of having chronic edema in her legs. MEDICATIONS: The patient has been receiving Rocephin in a dose of 2 g IV daily. The patient also has been urged to elevate her legs as much as possible and to keep the foot of her bed elevated with the manual gatch. The patient has been very compliant in doing all of these things. PHYSICAL EXAMINATION: Vital Signs: Temperature is 97.5 degrees, pulse 83, respirations 14, blood pressure 122/54. General: This is a morbidly obese, middle-aged female. She is in no acute distress. Lungs: Clear to auscultation. Cardiovascular: Regular heart rate. Abdomen: Soft and not tender. Chest: The patient's dialysis catheter is in place. There is no erythema or bleeding from it. Extremities: On the right leg, the area of erythema has lost most of the red color. Now, the tissue is a light pink in color. ASSESSMENT AND PLAN: The plan is to keep going with Rocephin and also elevation of the legs. COMORBIDITIES: Include obesity, diabetes mellitus, end-stage renal disease, and history of stroke and gastroesophageal reflux disease. cc: Balwinder Alvarado MD
[2017-06-03] MEDS: PERIDEX MT SCH (12:19)
[2017-06-03] MEDS: HEPARIN SUBQ SCH (12:20)
[2017-06-03] MEDS: PREVACID SOLUTAB PO SCH (12:21)
[2017-06-03] MEDS: BUSPAR PO SCH (12:24)
[2017-06-03] MEDS: APRESOLINE PO SCH ×2 (12:25→14:32)
[2017-06-03] MEDS: ZAROXOLYN PO SCH (12:26)
[2017-06-03] MEDS: SYNTHROID PO SCH (12:27)
[2017-06-03] MEDS: CATAPRES PO SCH ×2 (12:27→14:20)
[2017-06-03] MEDS: PLAVIX PO SCH (12:28)
[2017-06-03] MEDS: ASPIRIN PO SCH (12:28)
[2017-06-03] MEDS: LEVEMIR SUBQ SCH ×2 (12:33→14:20)
[2017-06-03] MEDS: ZOLOFT PO SCH (12:35)
--- NOTE | 2017-06-03 12:37 | PROGRESS NOTE ---
DATE: 06/03/2017 SUBJECTIVE: She states she is feeling well. She states she has been out of the bed and able to walk in the room. No dizziness. No shortness of breath. OBJECTIVE: Vital Signs: Blood pressure 124/56, heart rate 89, respirations 20, afebrile. General: She is in no acute distress. Skin: Warm and dry. Conjunctivae are pink. Neck: Neck veins are not appreciated. Heart: Regular, distant. Lungs: Equal. No crackles. Abdomen: Soft, obese, nontender. Bowel sounds present. Extremities: Have 1+ edema. No clubbing or cyanosis. LABORATORY DATA: Sodium 136, potassium 4.9, chloride 97, bicarbonate 23, BUN 51, creatinine 5.1, hemoglobin 10.0. IMPRESSION: End-stage kidney disease. Volume status is approaching euvolemia. She will be dialyzed today but we will not plan another treatment until the 1st of the week. From my perspective, okay for discharge. Electrolytes, acid-base and anemia are all in target. cc: Nba Navarrete MD
[2017-06-03] MEDS: EPOGEN SUBQ SCH (14:21)
--- NOTE | 2017-06-03 15:06 | PROGRESS NOTE ---
DATE: 06/03/2017 ADDENDUM: Our plan with the patient is to have her go home. I have electronically sent a prescription for Keflex in a dose of 500 mg p.o. every 8 hours for an additional week for the cellulitis on her leg. That has almost cleared completely and I suspect it will within the next few days. I did not give the patient an appointment but told her if her rash does not clear up that she should give me a call. I told her also that she needs to do everything she possibly can to get the fluid off of her legs including elevating her legs as much as possible, losing weight and avoiding salt and salty foods and fluids. cc: Balwinder Alvarado MD MTDD
[2017-06-03] MEDS: ALBUTEROL NEB INH PRN (15:17)
[2017-06-03 16:15] VITALS: BP 106/60
--- NOTE | 2017-06-04 04:55 | DISCHARGE SUMMARY ---
ADMISSION DATE: 05/18/2017 DISCHARGE DATE: 06/03/2017 DATE OF ADMISSION: 05/18/2017. DATE OF DISCHARGE: 06/03/2017. CONSULTATIONS: 1. Dr. Navarrete with Nephrology. 2. Dr. Fernando with Cardiology. 3. Dr. Justo Daniels with General Surgery. 4. Dr. Balwinder Alvarado with Infectious Disease. PERTINENT PROCEDURES: V/Q scan: Normal. Bilateral lower extremity Dopplers: Limited secondary to the patient's obesity, but no acute deep or superficial venous thrombosis were noted. SURGICAL PROCEDURES: 05/25, insertion of a central venous dialysis catheter with ultrasound and fluoroscopic guidance performed by Dr. Justo Daniels. DISCHARGE DIAGNOSES: 1. Fluid volume overload with pulmonary edema, slowly improving. The patient will continue with dialysis the first of next week. Followed by Dr. Navarrete. 2. Lower extremity cellulitis. The patient will be discharged on p.o. Keflex. We will continue to elevate her lower extremities. 3. End-stage renal disease. We will continue on hemodialysis followed by Dr. Navarrete. They will resume dialysis at the first of the week. 4. Uncontrolled insulin-dependent diabetes. Continue on Levemir 60 units twice a day. 5. Hypothyroidism. Continue Synthroid. 6. Insomnia. Continue melatonin and trazodone. 7. Anemia of chronic disease. Hemoglobin and hematocrit remain stable. 8. Obesity with a body mass index of 59. The patient has been educated on diet and exercise. 9. Suspected sleep apnea with a possible right heart failure. The patient has been advised to follow up for an outpatient sleep study. 10. COPD without exacerbation. 11. CVA with right parietal paresis, stable. 12. Chronic AFib, rate controlled. 13. Coronary artery disease status post CABG, stable coronary anatomy. 14. Hypertension, stable. HOSPITAL COURSE: Briefly, Ms. Sheridan is a 57-year-old, female, well known to our service. Past medical history for coronary artery disease status post CABG, chronic kidney disease. She has been on a temporary hemodialysis in the past, diabetes mellitus type 2 that is uncontrolled, chronic atrial fibrillation, pulmonary hypertension, dyslipidemia , hypothyroidism, obstructive sleep apnea, previous stroke with right-sided hemiparesis. She presented to the ED for several days progressive swelling in her lower extremities, increased dyspnea, wheezing. She was found to be edematous her chest x-ray showed pulmonary venous congestion, a mild interstitial edema. The EKG showed atrial fibrillation. Initial blood work showed a proBNP of 13,000. Mag was low at 1.1. BUN 48. A creatinine of 3.3. A sodium of 141, a potassium of 4.3, a hemoglobin of 10. She was given some IV Lasix in the ED. A V/Q scan ruled out any pulmonary embolism. Nephrology was consulted. She did have a good response to her initial IV Lasix. Her electrolytes and acid base was initially acceptable. Her anemia was acceptable and she was continued on IV Lasix and closely followed by Nephrology as well as Cardiology. Despite receiving heavy doses of diuretics with minimal response , she remained short of breath with increased work of breathing. Nephrology discussed with the patient in regards of starting hemodialysis to assist with her fluid volume overload. The patient was in agreement to go ahead and have placement of a tunneled catheter to assist with dialysis. Dr. Daniels was consulted. Her BUN and creatinine continued to rise. On 05/24, Dr. Daniels was able to place a tunneled central venous dialysis catheter and was initiated on dialysis. She remained on daily dialysis for several days to help control her fluid volume overload. Dr. Balwinder Alvarado was consulted in reference to her bilateral lower extremity cellulitis. He initiated the patient on IV antibiotics. She will be discharged today on p.o. Keflex. The patient has been working with physical therapy. We did offer rehabilitation , however she has declined. She wants to go home with home health. The patient will be discharged today after hemodialysis. Per Dr. Navarrete, she will be dialyzed today but they did not plan another treatment until the of the week and from his perspective, she is okay for discharge. Her electrolytes and acid-base and anemia are all in target. VITAL SIGNS AT THE TIME OF DISCHARGE: Temperature is 97.4 degrees, heart rate 91, respirations 18, blood pressure 141/68, O2 is 94% on room air. DISCHARGE DIET: Diabetic. DISCHARGE MEDICATIONS: As per Dr. Rojas: 1. Aspirin 81 mg p.o. daily. 2. Lipitor 80 mg p.o. at bedtime. 3. Amlodipine 5 mg p.o. b.i.d. 4. Keflex 500 mg p.o. every 8 hours. 5. Catapres 0.1 mg p.o. t.i.d. 6. Plavix 75 mg p.o. daily. 7. Cardizem CD 120 mg p.o. daily. 8. Epogen 92114 units subcutaneously Tuesday, Tuesday, Tuesday. 9. Lasix 80 mg p.o. b.i.d. 10. Apresoline 25 mg p.o. t.i.d. 11. [place] 10/325, 1 each p.o. every 6 hours p.r.n. 12. Levemir 60 units subcutaneously b.i.d. 13. Humalog 45 units subcutaneously 4 times a day. 14. Prevacid 30 mg p.o. b.i.d. 15. Synthroid 75 mcg p.o. daily. 16. Zaroxolyn 5 mg p.o. daily. 17. Lopressor 50 mg p.o. b.i.d. 18. Sertraline 50 mg p.o. daily. FOLLOWUP: Ms. Sheridan is being discharged home with home health. She has [facility]. She has a walker power chair as well as a bedside commode. She will return to the dialysis clinic, as instructed by Dr. Navarrete. She will continue with strict daily weights, as well as following a diabetic diet and watching her sodium intake. She is to take all medications as prescribed. She will also need to continue to elevate her legs, as instructed by Dr. Balwinder Alvarado. She can return to the ED for any worsening symptoms. DISCHARGE TIME: Was greater than 40 minutes. This is ALICE Romero, doing a discharge summary for Dr. Rojas. Dictated by ALICE Romero for Jason Rojas MD cc: Jason Rojas MD I have seen and provided face to face evaluation of the patient including revision of his labs, imagine studies and medications and he is clinically stable for discharge. [facility]
--- NOTE | 2017-06-09 10:27 | PROVIDER DOCUMENTATION ---
This chart was entered by Luis E Interiano Scribe, acting as scribe for Davin Lang CRNP. HPI-Respiratory General - General Chief Complaint: Shortness of Breath Stated Complaint: FLUID RETENTION Time Seen by Provider: 05/18/17 10:35 Source: patient Allergies/Adverse Reactions: Patient Allergies Allergy/AdvReac Type Severity Reaction Status Date / Time clindamycin Allergy Severe RASH Verified 12/21/16 14:03 meloxicam [From Mobic] Allergy Mild RASH Verified 12/21/16 14:03 vancomycin Allergy Mild RASH Verified 04/24/17 00:33 Home Medications: Home Medication List Medication Instructions Recorded Confirmed Last Taken Type ATORVAstatin [Lipitor] 80 mg PO QHS 09/08/15 05/18/17 05/17/17 20:00 History Furosemide 80 mg PO BID 09/08/15 05/18/17 05/18/17 08:00 History Clonidine [Catapres] 0.1 mg PO TID #90 09/21/15 05/18/17 05/18/17 08:00 Rx Buspirone HCl 5 mg PO BID 10/06/15 05/18/17 05/18/17 08:00 History Hydrocodone/Acetaminophen [[place] 1 each PO Q6H PRN PRN 11/12/16 05/18/17 2 Days Ago History 10-325 Tablet] Metoprolol [Lopressor] 50 mg PO BID 11/12/16 05/18/17 05/18/17 08:00 History Lansoprazole [Prevacid] 30 mg PO BID #60 capsule. 11/28/16 05/18/17 05/18/17 08:00 Rx Insulin Detemir [Levemir] 55 unit SUBQ BID@0800,2000 #0 12/24/16 05/18/1705/18 08:00 Rx Hydralazine [Apresoline] 25 mg PO TID@0900,1500,2100 04/24/17 05/18/17 05/18/17 08:00 History Insulin Lispro [Humalog] 45 units SQ 4XDAY 04/24/17 05/18/17 05/18/17 08:00 History Sertraline HCl 50 mg PO DAILY 04/24/17 05/18/17 05/18/17 08:00 History Aspirin 81 mg PO DAILY #30 chewtab 05/03/17 05/18/17 05/18/17 08:00 Rx Clopidogrel [Plavix] 75 mg PO DAILY #30 tablet 05/03/17 05/18/17 05/18/17 08:00 Rx Diltiazem C.d. [Cardizem Cd] 120 mg PO DAILY #30 capsule 05/03/17 05/18/1705/18 08:00 Rx Levothyroxine [Synthroid] 75 microgm PO DAILY 05/18/17 05/18/17 05/18/17 08:00 History - History of Present Illness-Resp Nature of Presenting Problem: Patient is a 57 y/o F that presents to the ER with shortness of breath, edema, and cough( non-productive). patient reports being told to come to ER by home health. Patient reports recent CVA Quality of Pain: reports: tightness Severity in ED: reports: moderate, severe Onset/Duration: reports: unsure Timing: reports: still present, constant Context: denies: out of meds, sports/exercise Cough Quality/Degree: reports: moderate, dry cough Episode Frequency: frequent episodes Modifying Factors: worse with: exertion, lying down Associated Symptoms: reports: cough, shortness of breath, short of breath. denies: flu-like symptoms, hurts to breathe, nasal congestion, nasal drainage, wheezing Similar Symptoms Previously?: Yes Recently seen or treated by another doctor?: Yes Review of Systems - Adult - REVIEW OF SYSTEMS - ADULT Constitutional: denies: chills, fever Eyes: reports: no symptoms reported Ears, Nose, Mouth & Throat: reports: no symptoms reported Cardiovascular: reports: edema, orthopnea. denies: chest pain, syncope Respiratory: reports: cough, dyspnea on exertion, shortness of breath Gastrointestinal: denies: abdominal pain, diarrhea, nausea, vomiting Genitourinary: reports: no symptoms reported Musculoskeletal: reports: no symptoms reported Integumentary: reports: no symptoms reported Neurological: reports: no symptoms reported Psychiatric: reports: no symptoms reported Endocrine: reports: no symptoms reported Hematologic/Lymphatic: reports: no symptoms reported Allergic/Immunologic: reports: no symptoms reported All Other Systems: Reviewed and Negative Past History - Adult - PAST MEDICAL HISTORY-ADULT Review of Records: reports: Old Records Reviewed, Nursing Assessment Review, Medications Reviewed Cardiovascular: reports: cardiac disease, A-Fib, CHF (last echo 04/12/15 showed EF of 55% but difficult due to patient size), HTN, hyperlipidemia, SD Respiratory: reports: COPD Genitourinary: reports: kidney disease (stage 4) Neurological: reports: CVA Psychiatric: reports: anxiety Endocrine/Immune: reports: Diabetes, thyroid disorder - PRIOR SURGERIES/PROCEDURES Surgical/Procedure History: reports: appendectomy, CABG, cholecystectomy, cardiac stent, hysterectomy, - IMMUNIZATION STATUS Childhood Immunizations: See Nurse Assessment Flu Vaccine: See Nurse Assessment - FAMILY HISTORY Family History: reviewed, not pertinent - SOCIAL HISTORY Smoking: quit greater than 1 year, cigarettes Living Situation: family Physical Exam-General - PHYSICAL EXAM-ADULT Exam Limited by: morbid obesity - CONSTITUTIONAL General Appearance: alert, moderate distress, obese - EYES Eyes: PERRL/EOMI, pink conjunctivae - HEAD, EARS, NOSE, MOUTH & THROAT HENMT: normocephalic/atraumatic, moist mucous membranes, normal ENT inspection - NECK Neck: full range of motion, normal inspection - RESPIRATORY Respiratory: no respiratory distress, decreased breath sounds (bases), rales - CARDIOVASCULAR Cardiovascular: no murmur, other (irregular regular) - GASTROINTESTINAL (ABDOMEN) Abdominal Exam: normal bowel sounds, non tender, soft - MUSCULOSKELETAL Extremity: normal capillary refill, pelvis stable, pedal edema (bilateral 4 plus up to abdomen) - SKIN Integumentary: normal color, warm/dry - NEUROLOGIC Neurologic: grossly normal, no motor/sensory deficits - PSYCHIATRIC Psych/Mental Status: normal mood/affect, oriented x 3 Progress - PLAN OF CARE/RESULTS Progress/Plan/Lab Results: Vital Signs - 8 hr 05/18/17 10:04 Temperature 97.9 F Pulse Rate 86 Respiratory Rate 22 Blood Pressure 178/109 O2 Sat by Pulse Oximetry 97 Laboratory Results - last 24 hr 05/18/17 05/18/17 05/18/17 10:20 10:20 10:20 WBC 6.34 RBC 4.14 L Hgb 11.0 L Hct 35.0 L MCV 84.5 MCH 26.6 L MCHC 31.4 L RDW Std Deviation 15.1 H Plt Count 297 MPV 10.7 H Immature Gran % (Auto) 0.0 Neut % (Auto) 66.4 Lymph % (Auto) 18.1 L Wilkin % (Auto) 11.5 H Eos % (Auto) 3.5 Baso % (Auto) 0.5 Immature Gran # (Auto) 0.00 Neut # (Auto) 4.21 Lymph # (Auto) 1.15 L Wilkin # (Auto) 0.73 H Eos # (Auto) 0.22 Baso # (Auto) 0.03 PT INR PTT (Actin FS) D-Dimer 2.26 H Sodium 138 Potassium 4.3 Chloride 103 Carbon Dioxide 19 L Anion Gap 16 BUN 46 H Creatinine 3.2 H Estimated GFR/1.73 m2 15 BUN/Creatinine Ratio 14 Glucose 266 H Calculated Osmolality 297 Calcium 7.8 L Magnesium 1.1 L Total Bilirubin 0.21 AST 13 ALT 13 Alkaline Phosphatase 130 H Creatine Kinase 121 Troponin T Lzp-[id number]-Kjjkfmdwlvn Pept Total Protein 6.2 L Albumin 3.0 L Globulin 3.2 Albumin/Globulin Ratio 0.9 Urine Source Urine Color Urine Turbidity Urine pH Ur Specific [place] Urine Protein Ur Glucose (Stick) Ur Ketones (Stick) Urine Blood Urine Nitrite Urine Bilirubin Urobilinogen Dipstick Urine Leukocytes Urine WBC (Auto) Urine RBC (Auto) U Epithel Cells (Auto) Urine Bacteria (Auto) 05/18/17 05/18/17 05/18/17 10:20 10:20 10:20 WBC RBC Hgb Hct MCV MCH MCHC RDW Std Deviation Plt Count MPV Immature Gran % (Auto) Neut % (Auto) Lymph % (Auto) Wilkin % (Auto) Eos % (Auto) Baso % (Auto) Immature Gran # (Auto) Neut # (Auto) Lymph # (Auto) Wilkin # (Auto) Eos # (Auto) Baso # (Auto) PT 10.4 INR 0.99 PTT (Actin FS) 28.4 D-Dimer Sodium Potassium Chloride Carbon Dioxide Anion Gap BUN Creatinine Estimated GFR/1.73 m2 BUN/Creatinine Ratio Glucose Calculated Osmolality Calcium Magnesium Total Bilirubin AST ALT Alkaline Phosphatase Creatine Kinase Troponin T 0.084 Cim-V-Taldioptdxb Pept 24297 H Total Protein Albumin Globulin Albumin/Globulin Ratio Urine Source Urine Color Urine Turbidity Urine pH Ur Specific [place] Urine Protein Ur Glucose (Stick) Ur Ketones (Stick) Urine Blood Urine Nitrite Urine Bilirubin Urobilinogen Dipstick Urine Leukocytes Urine WBC (Auto) Urine RBC (Auto) U Epithel Cells (Auto) Urine Bacteria (Auto) 05/18/17 10:50 WBC RBC Hgb Hct MCV MCH MCHC RDW Std Deviation Plt Count MPV Immature Gran % (Auto) Neut % (Auto) Lymph % (Auto) Wilkin % (Auto) Eos % (Auto) Baso % (Auto) Immature Gran # (Auto) Neut # (Auto) Lymph # (Auto) Wilkin # (Auto) Eos # (Auto) Baso # (Auto) PT INR PTT (Actin FS) D-Dimer Sodium Potassium Chloride Carbon Dioxide Anion Gap BUN Creatinine Estimated GFR/1.73 m2 BUN/Creatinine Ratio Glucose Calculated Osmolality Calcium Magnesium Total Bilirubin AST ALT Alkaline Phosphatase Creatine Kinase Troponin T Aon-X-Aoxyawxtjtq Pept Total Protein Albumin Globulin Albumin/Globulin Ratio Urine Source CATH Urine Color YELLOW Urine Turbidity CLEAR Urine pH 6.5 Ur Specific [place] 1.011 Urine Protein 600 A Ur Glucose (Stick) 500 A Ur Ketones (Stick) NEGATIVE Urine Blood TRACE A Urine Nitrite NEGATIVE Urine Bilirubin NEGATIVE Urobilinogen Dipstick NORMAL Urine Leukocytes NEGATIVE Urine WBC (Auto) <10 Urine RBC (Auto) <10 U Epithel Cells (Auto) <10 Urine Bacteria (Auto) NEGATIVE Orders Category Date Time Status Cardiac Monitoring DIRECTED Care 05/18/17 10:40 Active [place] Cath Insertion ORDERED Care 05/18/17 10:40 Active Oxygen Therapy- ED Nursing DIRECTED Care 05/18/17 10:40 Active Saline Loc NOW Care 05/18/17 10:40 Active Diabetic Diet Diet 05/18/17 11:51 Active CHEST-1 VIEW [RAD] Stat Exams 05/18/17 10:41 Completed LUNG SCAN / VQ [NM] Stat Exams 05/18/17 12:00 Ordered CBC WITH ELECTRONIC DIFF [HEME] Stat Lab 05/18/17 10:20 Completed CK PROFILE [SP CHEM] Stat Lab 05/18/17 10:20 Completed COMPREHENSIVE METABOLIC PANEL [CHEM] Stat Lab 05/18/17 10:20 Completed D-DIMER [CHEM] Stat Lab 05/18/17 10:20 Completed MAGNESIUM [CHEM] Stat Lab 05/18/17 10:20 Completed PRO B-NATRIURETIC PEPTIDE Stat Lab 05/18/17 10:20 Completed PROTIME WITH INR [COAG] Stat Lab 05/18/17 10:20 Completed PTT [COAG] Stat Lab 05/18/17 10:20 Completed TROPONIN T Stat Lab 05/18/17 10:20 Completed URINALYSIS W/POSS RFLX CULT-1 [URINALYSIS] Stat Lab 05/18/17 10:50 Completed Furosemide [Lasix] Med 05/18/17 10:41 Discontinued 60 mg IV NOW ONE Nitroglycerin Med 05/18/17 10:41 Discontinued 1 inch TOP NOW ONE EKG [EKG] Stat Ther 05/18/17 10:40 Draft Result Diagrams: 05/18/17 10:20 05/18/17 10:20 - EKG 1 Time of EKG reading by physician:: 10:07 EKG Read and Signed by:: Marcus Platt EKG Interpretation (*Must complete 3 of following elements*): Abnormal Rate: 84 Rhythm: a-fib QRS: normal ST Wave: normal - XRAY 1 XRAY Study: Chest Impression: See EMR Report (IMPRESSION: Suggestion of pulmonary venous congestion and mild interstitial edema. Electronically signed by Jamie Lenz 05/18/2017 11:32 AM) - CONSULTS/PCP/HOSPITALIST Notification #1 *Consult/PCP/Hospitalist*: Dr. clifford Time Discussed: 12:01 Consult Disposition: Will see in ED, Admit Departure - Departure Date of Disposition Decision: 05/18/17 Time of Disposition Decision: 12:01 DIAGNOSIS: CHF exacerbation Qualifiers: Congestive heart failure type: unspecified congestive heart failure type Qualified Code(s): I50.9 - Heart failure, unspecified Fluid overload Qualifiers: Hypervolemia type: unspecified Qualified Code(s): E87.70 - Fluid overload, unspecified Disposition: ADMITTED INPATIENT 09 Certified Medical Emergency: Emergent Condition: Stable Referrals and Follow-Ups: Kristy Huynh MD [Primary Care Provider] - - Critical Care Note This patient required my direct & personal management of CC.: No Attestation - Physician/ VIKRAM Attestation Patient care was provided by Advanced Practice Provider:: Yes Advanced Practice Provider:: Davin Lang Advanced Practice Provider documentation review:: The Mid-level provider documentation, treatment plan and medical decision making was reviewed by the physician who agrees with all treatment and medical decision making by the MLP. The physician spent face to face time with patient:: Yes Advanced Practice Provider documentation review:: Supervising physician onsite and consulted in the evaluation and care of this patient. The physician did have a face to face encounter with the patient. This chart was documented by the indicated scribe, (Luis E Interiano, [employer]) and accurately reflects the services I performed and decisions made by me, Davin Lang CRNP, as attested by the provider's signature.
== END 2017-06-03 16:56 | disposition home health service (06) ==
LOC: ED 09:50 → 4N 15:39 → SUATTDRO 15:39
PROVIDERS: ATTEND Internal Medicine